=== PATIENT | female | born 1930 | race Two or more races ===

== ENCOUNTER 2016-10-26 16:15 | Inpatient (IN) | payer MEDICARE, BC ==
[~2016-10-26] VITALS: Ht 149.9 cm; Wt 51.8 kg
[~2016-10-26 16:15] MED LIST: ACET325T21 PO; ASPI-482 PO; ATOR10TA60 PO; BIMA2.5D EACHEYE; BRIM5DRO3 EACHEYE; CALC500T30 PO; CARV3.12 PO; CHOL200074 PO; LEVO88TA2 PO; LOSA100T6 PO; MAGN400O7 PO; OMEG1CAP27 PO; TIMO5DRO5 EACHEYE; TIZA4CAP3 PO
[2016-10-26 16:56] LABS: BASO % 0 % (0-3); EOS % 0 % (0-3); HEMATOCRIT 42.4 % (36.0-47.0); HEMOGLOBIN 13.7 g/dL (12.0-15.5); LYMPH # 1.5 x10^3/uL (1.0-4.8); LYMPH % 12 % (24-48); MEAN CORPUSCULAR HEMOGLOBIN 30 pg (25-35); MEAN CORPUSCULAR HGB CONC 32 g/dL (31-37); MEAN CORPUSCULAR VOLUME 94 fL (79-100); MONO % 7 % (0-9); NEUT % 81 % (31-73); PLATELET COUNT 315 x10^3/uL (140-400); RED BLOOD COUNT 4.52 x10^6/uL (3.50-5.40); RED CELL DISTRIBUTION WIDTH 14.2 % (11.5-14.5); WHITE BLOOD COUNT 11.8 x10^3/uL (4.0-11.0)
[2016-10-26 16:57] LABS: BILIRUBIN,URINE NEGATIVE (NEG); GLUCOSE,URINE NEGATIVE (NEG); NITRITE,URINE NEGATIVE (NEG); PROTEIN,URINE NEGATIVE (NEG-TRACE); UROBILINOGEN,URINE 0.2 mg/dL (0.2 mg/dL)
[2016-10-26 17:09] LABS: CALCIUM 9.8 mg/dL (8.5-10.1); GFR 52.8; POTASSIUM 4.3 mmol/L (3.5-5.1)
[2016-10-26 17:15] LABS: ALBUMIN 4.2 g/dL (3.4-5.0); ALBUMIN/GLOBULIN RATIO 1.1 (1.0-1.7); MAGNESIUM 2.6 mg/dL (1.8-2.4); TOTAL BILIRUBIN 0.5 mg/dL (0.2-1.0); TOTAL PROTEIN 8.2 g/dL (6.4-8.2)
[2016-10-26 17:17] LABS: INR 1.1 (0.8-1.1); PROTHROMBIN TIME PATIENT 13.9 SEC (11.7-14.0)
[2016-10-26 17:23] LABS: BACTERIA,URINE 0 /HPF (0-FEW); SQUAMOUS EPITHELIAL CELL,UR FEW /LPF; WBC,URINE 0 /HPF (0-4)
--- NOTE | 2016-10-26 17:40 | RAD ---
CT head without intravenous contrast History: Dizziness, facial numbness. Hypertension. Comparison: None. Technique: Axial images are obtained of the head from the skull base through the vertex without IV contrast. Exposure: One or more of the following individualized dose reduction techniques were utilized for this examination: 1. Automated exposure control 2. Adjustment of the mA and/or kV according to patient size 3. Use of iterative reconstruction technique Findings: The ventricles are appropriate in size, shape, and location for the patient's age. No obvious intracranial mass, mass-effect, midline shift, hemorrhage or obvious acute infarction is identified. Basilar cisterns are patent. Bone windows demonstrate no acute calvarial abnormality. The visualized paranasal sinuses appear clear. Radiodensity is seen involving the lateral aspect of both globes, may relate to previous surgery. Impression: No acute intracranial process. Please note that CT can be relatively insensitive to acute ischemic infarction for up to 24 hours after symptom onset. Electronically signed by: Cheko France MD (10/26/2016 5:37 PM)
--- NOTE | 2016-10-26 18:44 | EKG ---
[facility] [address] [place] [address] Test Date: 2016-10-26 Test Time: 16:37:19 Pat Name: GAY FISCHER Department: Room: Gender: F Clear Coat Sprayer: : [id number] Requested By: CYNTHIA HUERTA Order Number: [id number] Reading MD: Measurements Intervals [place] Rate: 76 P: 54 FL: 152 QRS: 9 QRSD: 92 T: 48 QT: 332 QTc: 377 Interpretive Statements SINUS RHYTHM OTHERWISE NORMAL ECG RI6.01 Unconfirmed report No previous ECG available for comparison
[2016-10-26] MEDS ORDERED: ONDANSETRON PF 4 MG/2 ML VIAL. IV PRN ×2 (19:00→19:47)
[2016-10-26] MEDS ORDERED: ACETAMINOPHEN 325 MG TABLET. PO PRN (19:00)
[2016-10-26] MEDS ORDERED: MORPHINE SULFATE 2 MG/ML DISP.SYRIN. IV PRN (19:00)
[2016-10-26] MEDS ORDERED: hydrALAZINE 20 MG/ML VIAL. IVP PRN (19:00)
[2016-10-26 20:22] VITALS: BP 168/83
--- NOTE | 2016-10-26 20:35 | PHYS DOC ---
Past Medical History Past Medical History: Diabetes-Type II, Glaucoma, Hypertension Additional Past Medical Histor: GLAUCOMA Past Surgical History: Other Additional Past Surgical Histo: glaucoma Alcohol Use: None Drug Use: None Adult General Chief Complaint Chief Complaint: DIZZY/LIGHT HEADED HPI HPI Patient is a 86 year old female who presents with right sided facial numbness. She reports onset of symptoms at about 1000 this morning (6 hours prior to arrival) after waking up free of symptoms. She denies any headache, vision changes, slurred speech, extremity numbness/weakness. She denies chest pain or shortness of breath. She has no previous history of similar symptoms. She does have HTN & reports compliance with her home medications. She denies history of CAD or CVA. 2 weeks ago she had a right eye "drainage" procedure performed for glaucoma. Review of Systems Review of Systems Constitutional: Denies fever or chills Eyes: Denies change in visual acuity HENT: Denies nasal congestion or sore throat Respiratory: Denies cough or shortness of breath Cardiovascular: Denies chest pain or edema GI: Denies abdominal pain, nausea, vomiting, bloody stools or diarrhea : Denies dysuria or hematuria Musculoskeletal: Denies back pain or joint pain Integument: Denies rash or skin lesions Neurologic: Denies headache, focal weakness, reports facial numbness Allergies Allergies Allergies Coded Allergies Type Severity Reaction Last Updated Verified amlodipine Allergy Intermediate SWELLING 12/26/15 Yes carvedilol Allergy Intermediate SOA, DIZZINESS 12/26/15 Yes hydrochlorothiazide Allergy Intermediate DIZZINESS 12/26/15 Yes nitrofurantoin Allergy Intermediate ANXIETY 12/26/15 Yes Physical Exam Physical Exam Constitutional: Well developed, well nourished, no acute distress, non-toxic appearance. HENT: Normocephalic, atraumatic, bilateral external ears normal, oropharynx moist, nose normal. right sided face decreased sensation to light touch. Eyes: PERRLA, EOMI, conjunctiva normal, no discharge. Neck: supple, no stridor. no carotid bruit. Cardiovascular: RRR, no murmurs, no edema. Lungs & Thorax: LCTAB, no wheezing, no respiratory distress. Abdomen: soft, nontender, nondistended. Skin: Warm, dry, no erythema, no rash. Back: No tenderness. Extremities: No tenderness, no edema. Neurologic: Alert and oriented X 3, CN2-12 grossly intact with exception of right sided decreased sensation to light touch, symmetric strength/sensation to UE & LE, intact finger to nose & heel to benton, no palmar drift. NIH score is 1. Psychologic: Affect normal, judgement normal, mood normal. Current Patient Data Vital Signs Vital Signs Date Time Temp Pulse Resp B/P (MAP) Pulse Ox O2 Delivery O2 Flow Rate FiO2 10/26/16 18:18 68 12 161/87 (111) 98 Room Air 10/26/16 16:35 97.7 97.7 Lab Values Laboratory Tests Test 10/26/16 16:35 10/26/16 16:37 Glucose (Fingerstick) 157 mg/dL (70-99) H White Blood Count 11.8 x10^3/uL (4.0-11.0) H Red Blood Count 4.52 x10^6/uL (3.50-5.40) Hemoglobin 13.7 g/dL (12.0-15.5) Hematocrit 42.4 % (36.0-47.0) Mean Corpuscular Volume 94 fL (79-100) Mean Corpuscular Hemoglobin 30 pg (25-35) Mean Corpuscular Hemoglobin Concent 32 g/dL (31-37) Red Cell Distribution Width 14.2 % (11.5-14.5) Platelet Count 315 x10^3/uL (140-400) Neutrophils (%) (Auto) 81 % (31-73) H Lymphocytes (%) (Auto) 12 % (24-48) L Monocytes (%) (Auto) 7 % (0-9) Eosinophils (%) (Auto) 0 % (0-3) Basophils (%) (Auto) 0 % (0-3) Neutrophils # (Auto) 9.6 x10^3uL (1.8-7.7) H Lymphocytes # (Auto) 1.5 x10^3/uL (1.0-4.8) Monocytes # (Auto) 0.8 x10^3/uL (0.0-1.1) Eosinophils # (Auto) 0.0 x10^3/uL (0.0-0.7) Basophils # (Auto) 0.0 x10^3/uL (0.0-0.2) Prothrombin Time 13.9 SEC (11.7-14.0) Prothrombin Time INR 1.1 (0.8-1.1) PTT 31 SEC (24-38) Urine Collection Type Unknown Urine Color Yellow Urine Clarity Clear Urine pH 6.0 Urine Specific [place] <=1.005 Urine Protein Negative mg/dL (NEG-TRACE) Urine Glucose (UA) Negative mg/dL (NEG) Urine Ketones (Stick) Negative mg/dL (NEG) Urine Blood Trace (NEG) Urine Nitrite Negative (NEG) Urine Bilirubin Negative (NEG) Urine Urobilinogen Dipstick 0.2 mg/dL (0.2 mg/dL) Urine Leukocyte Esterase Negative (NEG) Urine RBC 1-2 /HPF (0-2) Urine WBC 0 /HPF (0-4) Urine Squamous Epithelial Cells Few /LPF Urine Bacteria 0 /HPF (0-FEW) Sodium Level 133 mmol/L (136-145) L Potassium Level 4.3 mmol/L (3.5-5.1) Chloride Level 96 mmol/L (98-107) L Carbon Dioxide Level 27 mmol/L (21-32) Anion Gap 10 (6-14) Blood Urea Nitrogen 26 mg/dL (7-20) H Creatinine 1.0 mg/dL (0.6-1.0) Estimated GFR (Cockcroft-Gault) 52.8 BUN/Creatinine Ratio 26 (6-20) H Glucose Level 149 mg/dL (70-99) H Calcium Level 9.8 mg/dL (8.5-10.1) Magnesium Level 2.6 mg/dL (1.8-2.4) H Total Bilirubin 0.5 mg/dL (0.2-1.0) Aspartate Amino Transferase (AST) 20 U/L (15-37) Alanine Aminotransferase (ALT) 25 U/L (14-59) Alkaline Phosphatase 91 U/L (46-116) Troponin I Quantitative < 0.017 ng/mL (0.000-0.055) SH-Bfx-J-Type Natriuretic Peptide 49 pg/mL (0-449) Total Protein 8.2 g/dL (6.4-8.2) Albumin 4.2 g/dL (3.4-5.0) Albumin/Globulin Ratio 1.1 (1.0-1.7) Laboratory Tests 10/26/16 16:37 Laboratory Tests 10/26/16 16:37 EKG EKG interpreted by me: NSR rate 76, no acute ST/T wave changes, normal intervals, no ectopy.[] Radiology/Procedures Radiology/Procedures PROCEDURE: CT HEAD WO CONTRAST CT head without intravenous contrast History: Dizziness, facial numbness. Hypertension. Comparison: None. Technique: Axial images are obtained of the head from the skull base through the vertex without IV contrast. Exposure: One or more of the following individualized dose reduction techniques were utilized for this examination: 1. Automated exposure control 2. Adjustment of the mA and/or kV according to patient size 3. Use of iterative reconstruction technique Findings: The ventricles are appropriate in size, shape, and location for the patient's age. No obvious intracranial mass, mass-effect, midline shift, hemorrhage or obvious acute infarction is identified. Basilar cisterns are patent. Bone windows demonstrate no acute calvarial abnormality. The visualized paranasal sinuses appear clear. Radiodensity is seen involving the lateral aspect of both globes, may relate to previous surgery. Impression: No acute intracranial process. Please note that CT can be relatively insensitive to acute ischemic infarction for up to 24 hours after symptom onset. Electronically signed by: Anastacio Olivas MD (10/26/2016 5:37 PM) DICTATED and SIGNED BY: ANASTACIO OLIVAS MD DATE: 10/26/161733 CXR: interpreted by me: no cardiomegaly, no infiltrate, no pneumothorax.[] Course & Med Decision Making Course & Med Decision Making Pertinent Labs and Imaging studies reviewed. (See chart for details) The patient presents with neuro symptoms. Blood pressure markedly elevated upon arrival SBP > 200. NIH is 1. Onset of symptoms was 6 hours prior to arrival, not a candidate for TPA so therefore not activated as code stroke. Obtained CT of head as well as labs. She has unremarkable head CT, labs. She wonders whether her symptoms could be due to eye procedure; hard to know without having details of the procedure, though delay in onset makes me question whether this is likely. With elevated blood pressure I do think she could benefit from further neuro exam. She agrees with plan for admission. Gave aspirin. Discussed with Dr. Vick who agrees to admit to inpatient status. Neurology consult to Dr. Shah. The patient is admitted in stable condition. [] Dragon Disclaimer Dragon Disclaimer This electronic medical record was generated, in whole or in part, using a voice recognition dictation system. Departure Departure Impression: Primary Impression: Neurological symptoms Additional Impression: Accelerated hypertension Disposition: 09 ADMITTED INPATIENT Admitting Physician: Candi Vick Condition: STABLE Problem Qualifiers CYNTHIA HUERTA MD Oct 26, 2016 20:35
[2016-10-26] MEDS ORDERED: DEXTROSE 50% 25 GM / 50ML DISP.SYRIN. IV PRN (20:45)
--- NOTE | 2016-10-26 20:49 | PDOC1 ---
History and Physical Date of Admission Date of Admission DATE: 10/26/16 TIME: 20:44 Identification/Chief Complaint Chief Complaint R sided facial numbness Problems: Source Source: Caregiver, Chart review, Patient History of Present Illness History of Present Illness Very pleasant 86 y.o female who looks younger than stated age, lives at home with , ambulates with no assitive device, comes in bec of acute onset R sided facial numbness at home, coupled by high BP that she took at home systolic > 200, 2 rdgs at home. Admitted bec BP high and to have mri, No hx stroke, takes ASA 81 at home, compliant with meds,. LAbs ok CT head I have reviewed, neg. Systolic came down to 160 with nonintervention at ER. She did have recent eye sx for glaucoma - unsure if her R sided numbness has anything to do with that (doubt it), she had similar eye sx left side with no similar problems R side numbness is almost gone, just a residual "funny sensation" she claims Past Medical History Cardiovascular: HTN, Hyperlipidemia Pulmonary: No pertinent hx CENTRAL NERVOUS SYSTEM: Other GI: GERD Heme/Onc: No pertinent hx Hepatobiliary: No pertinent hx Psych: No pertinent hx Musculoskeletal: Osteoarthritis Rheumatologic: No pertinent hx Infectious disease: No pertinent hx Renal/: No pertinent hx Endocrine: Diabetes Past Surgical History Past Surgical History: Cataract Removal, Other Family History Family History: Coronary Artery Disease Social History Smoke: No ALCOHOL: none Drugs: None Current Problem List Problem List Problems Medical Problems: (1) Neurological symptoms Status: Acute Problems: Current Medications Current Medications Current Medications Ondansetron HCl (Zofran) 4 mg PRN Q8HRS PRN IV NAUSEA/VOMITING; Start 10/26/16 at 19:00; Stop 10/26/16 at 19:49; Status DC Morphine Sulfate 2 mg PRN Q2HR PRN IV PAIN; Start 10/26/16 at 19:00; Stop 10/27 at 18:59 Acetaminophen (Tylenol) 650 mg PRN Q4HRS PRN PO FEVER; Start 10/26/16 at 19:00 ; Stop 10/27/16 at 18:59 Hydralazine HCl (Apresoline) 10 mg PRN Q4HRS PRN IVP ELEVATED BP, SEE COMMENTS ; Start 10/26/16 at 19:00 Ondansetron HCl (Zofran) 4 mg PRN Q6HRS PRN IV NAUSEA/VOMITING; Start 10/26/16 at 19:47; Stop 10/27/16 at 19:46 Acetaminophen (Tylenol) 325 mg TID PO ; Start 10/26/16 at 21:00 Aspirin (Ecotrin) 81 mg DAILY PO ; Start 10/27/16 at 09:00 Atorvastatin Calcium (Lipitor) 10 mg QHS PO ; Start 10/27/16 at 21:00 Calcium Carbonate/ Glycine (Oscal) 500 mg DAILY PO ; Start 10/27/16 at 09:00 Carvedilol (Coreg) 3.125 mg BIDWMEALS PO ; Start 10/27/16 at 08:00 Levothyroxine Sodium (Synthroid) 88 mcg DAILY07 PO ; Start 10/27/16 at 07:00 Timolol Maleate (Timoptic 0.5% Ophth) 1 drop DAILYWBKFT OU ; Start 10/27/16 at 08:00 Latanoprost (Xalatan) 1 drop QHS OU ; Start 10/26/16 at 21:00 Brimonidine Tartrate (Alphagan) 1 drop DAILY OU ; Start 10/27/16 at 09:00 Losartan Potassium (Cozaar) 100 mg DAILY PO ; Start 10/27/16 at 09:00 Tizanidine HCl (Zanaflex) 2 mg QHS PO ; Start 10/26/16 at 21:00 Fish Oil (Fish Oil) 1,000 mg DAILY PO ; Start 10/27/16 at 09:00 Active Scripts Active Reported Coreg (Carvedilol) 3.125 Mg Tablet 1 Tab PO DAILY Timolol Maleate 10 Ml Drops 1 Drop EACHEYE DAILYWBKFT Alphagan P (Brimonidine Tartrate) 5 Ml Drops 1 Drop EACHEYE DAILY08 Lumigan (Bimatoprost) 2.5 Ml Drops 1 Drop EACHEYE QHS Zanaflex (Tizanidine Hcl) 4 Mg Capsule 0.5 Tab PO QHS Milk Of Magnesia (Magnesium Hydroxide) 400 Mg/5 Ml Oral.susp Unknown Dose PO Acetaminophen 325 Mg Tablet 325 Mg PO Vitamin D-3 (Cholecalciferol (Vitamin D3)) 2,000 Unit Capsule 2,000 Unit PO Calcium (Calcium Carbonate) 500 Mg Tablet 500 Mg PO Fish Oil 1,000 Mg Softgel ([place]-3 Fatty Acids/Fish Oil) 1 Each Capsule 3 Each PO Aspir 81 (Aspirin) 81 Mg Tablet.dr 81 Tab PO DAILY Synthroid (Levothyroxine Sodium) 88 Mcg Tablet 88 Tab PO DAILY Losartan Potassium 100 Mg Tablet 100 Mg PO DAILY Atorvastatin Calcium 10 Mg Tablet 1 Tab PO DAILY Allergies Allergies: Coded Allergies: amlodipine (Verified Allergy, Intermediate, SWELLING, 12/26/15) carvedilol (Verified Allergy, Intermediate, SOA, DIZZINESS, 12/26/15) PT WAS PLACED BACK ONTO MEDICATION BY PCP, PT NO LONGER HAVING THOSE SYMPTOMS WITH MEDICATION hydrochlorothiazide (Verified Allergy, Intermediate, DIZZINESS, 12/26/15) nitrofurantoin (Verified Allergy, Intermediate, ANXIETY, 12/26/15) ROS General: No: Chills, Night Sweats, Fatigue, Malaise, Appetite, Other PSYCHOLOGICAL ROS: No: Anxiety, Behavioral Disorder, Concentration difficultie , Decreased libido, Depression, Disorientation, Hallucinations, Hostility, Irritablity, Memory difficulties, Mood Swings, Obsessive thoughts, Physical abuse, Sexual abuse, Sleep disturbances, Suicidal ideation, Other Eyes: No Blurry vision, No Decreased vision, No Double vision, No Dry eyes, No Excessive tearing, No Eye Pain, No Itchy Eyes, No Loss of vision, No Photophobia , No Scotomata, No Uses contacts, No Uses glasses, No Other HEENT: No: Heacaches, Visual Changes, Hearing change, Nasal congestion, Nasal discharge, Oral lesions, Sinus pain, Sore Throat, Epistaxis, Sneezing, Snoring, Tinnitus, Vertigo, Vocal changes, Other ALLERGY AND IMMUNOLOGY: No: Hives, Insect Bite Sensitivity, Itchy/Watery Eyes, Nasal Congestion, Post Nasal Drip, Seasonal Allergies, Other Hematological and Lymphatic: No: Bleeding Problems, Blood Clots, Blood Transfusions, Brusing, Night Sweats, Pallor, Swollen Lymph Nodes, Other ENDOCRINE: No: Breast Changes, Galactorrhea, Hair Pattern Changes, Hot Flashes , Malaise/lethargy, Mood Swings, Palpitations, Polydipsia/polyuria, Skin Changes , Temperature Intolerance, Unexpected Weight Changes, Other Breast: No New/Changing Breast Lumps, No Nipple changes, No Nipple discharge, No Other Respiratory: No: Cough, Hemoptysis, Orthopnea, Pleuritic Pain, Shortness of breath, SOB with excertion, Sputum Changes, Stridor, Tachypnea, Wheezing, Other Cardiovascular: No Chest Pain, No Palpitations, No Orthopnea, No Paroxysmal Noc. Dyspnea, No Edema, No Lt Headedness, No Other Gastrointestinal: No Nausea, No Vomiting, No Abdominal Pain, No Diarrhea, No Constipation, No Melena, No Hematochezia, No Other Genitourinary: No Dysuria, No Frequency, No Incontinence, No Hematuria, No Retention, No Discharge, No Urgency, No Pain, No Flank Pain, No Other, No , No , No , No , No , No , No Musculoskeletal: No Gait Disturbance, No Joint Pain, No Joint Stiffness, No Joint Swelling, No Muscle Pain, No Muscular Weakness, No Pain In:, No Swelling In:, No Other Neurological: Yes Other (as per HPI,) Physical Exam General: Alert, Oriented X3, Cooperative, No acute distress HEENT: Atraumatic, PERRLA, EOMI Lungs: Clear to auscultation, Normal air movement Cardiovascular: S1, S2 Breasts: Normal, Rt breast nml w/o mass, Lt breast nml w/o mass, Nipples normal Abdomen: Normal bowel sounds, Soft, No tenderness, No hepatosplenomegaly, No masses Male Genitals Exam: normal genitalia, normal prostate Rectal Exam: not examined PELVIC: Nml ext genitalia Extremities: No clubbing, No cyanosis, No edema, Normal pulses, No tenderness/ swelling Skin: No rashes, No breakdown, No significant lesion Neuro: Normal gait, Normal speech, Strength at 5/5 X4 ext, Normal tone, Sensation intact, Cranial nerves 3-12 NL, Reflexes 2+ Psych/Mental Status: Mental status NL, Mood NL Vitals Vitals Vital Signs Date Time Temp Pulse Resp B/P (MAP) Pulse Ox O2 Delivery O2 Flow Rate FiO2 10/26/16 20:22 97.4 76 18 168/83 (111) 99 Room Air 97.4 Labs Labs Laboratory Tests Test 10/26/16 16:35 10/26/16 16:37 10/26/16 20:16 Glucose (Fingerstick) 157 mg/dL (70-99) 151 mg/dL (70-99) White Blood Count 11.8 x10^3/uL (4.0-11.0) Red Blood Count 4.52 x10^6/uL (3.50-5.40) Hemoglobin 13.7 g/dL (12.0-15.5) Hematocrit 42.4 % (36.0-47.0) Mean Corpuscular Volume 94 fL (79-100) Mean Corpuscular Hemoglobin 30 pg (25-35) Mean Corpuscular Hemoglobin Concent 32 g/dL (31-37) Red Cell Distribution Width 14.2 % (11.5-14.5) Platelet Count 315 x10^3/uL (140-400) Neutrophils (%) (Auto) 81 % (31-73) Lymphocytes (%) (Auto) 12 % (24-48) Monocytes (%) (Auto) 7 % (0-9) Eosinophils (%) (Auto) 0 % (0-3) Basophils (%) (Auto) 0 % (0-3) Neutrophils # (Auto) 9.6 x10^3uL (1.8-7.7) Lymphocytes # (Auto) 1.5 x10^3/uL (1.0-4.8) Monocytes # (Auto) 0.8 x10^3/uL (0.0-1.1) Eosinophils # (Auto) 0.0 x10^3/uL (0.0-0.7) Basophils # (Auto) 0.0 x10^3/uL (0.0-0.2) Prothrombin Time 13.9 SEC (11.7-14.0) Prothromb Time International Ratio 1.1 (0.8-1.1) Activated Partial Thromboplast Time 31 SEC (24-38) Urine Collection Type Unknown Urine Color Yellow Urine Clarity Clear Urine pH 6.0 Urine Specific [place] <=1.005 Urine Protein Negative mg/dL (NEG-TRACE) Urine Glucose (UA) Negative mg/dL (NEG) Urine Ketones (Stick) Negative mg/dL (NEG) Urine Blood Trace (NEG) Urine Nitrite Negative (NEG) Urine Bilirubin Negative (NEG) Urine Urobilinogen Dipstick 0.2 mg/dL (0.2 mg/dL) Urine Leukocyte Esterase Negative (NEG) Urine RBC 1-2 /HPF (0-2) Urine WBC 0 /HPF (0-4) Urine Squamous Epithelial Cells Few /LPF Urine Bacteria 0 /HPF (0-FEW) Sodium Level 133 mmol/L (136-145) Potassium Level 4.3 mmol/L (3.5-5.1) Chloride Level 96 mmol/L (98-107) Carbon Dioxide Level 27 mmol/L (21-32) Anion Gap 10 (6-14) Blood Urea Nitrogen 26 mg/dL (7-20) Creatinine 1.0 mg/dL (0.6-1.0) Estimated GFR (Cockcroft-Gault) 52.8 BUN/Creatinine Ratio 26 (6-20) Glucose Level 149 mg/dL (70-99) Calcium Level 9.8 mg/dL (8.5-10.1) Magnesium Level 2.6 mg/dL (1.8-2.4) Total Bilirubin 0.5 mg/dL (0.2-1.0) Aspartate Amino Transf (AST/SGOT) 20 U/L (15-37) Alanine Aminotransferase (ALT/SGPT) 25 U/L (14-59) Alkaline Phosphatase 91 U/L (46-116) Troponin I Quantitative < 0.017 ng/mL (0.000-0.055) MM-[id number]-A-Type Natriuretic Peptide 49 pg/mL (0-449) Total Protein 8.2 g/dL (6.4-8.2) Albumin 4.2 g/dL (3.4-5.0) Albumin/Globulin Ratio 1.1 (1.0-1.7) Laboratory Tests Test 10/26/16 16:35 10/26/16 16:37 10/26/16 20:16 Glucose (Fingerstick) 157 mg/dL (70-99) 151 mg/dL (70-99) White Blood Count 11.8 x10^3/uL (4.0-11.0) Red Blood Count 4.52 x10^6/uL (3.50-5.40) Hemoglobin 13.7 g/dL (12.0-15.5) Hematocrit 42.4 % (36.0-47.0) Mean Corpuscular Volume 94 fL (79-100) Mean Corpuscular Hemoglobin 30 pg (25-35) Mean Corpuscular Hemoglobin Concent 32 g/dL (31-37) Red Cell Distribution Width 14.2 % (11.5-14.5) Platelet Count 315 x10^3/uL (140-400) Neutrophils (%) (Auto) 81 % (31-73) Lymphocytes (%) (Auto) 12 % (24-48) Monocytes (%) (Auto) 7 % (0-9) Eosinophils (%) (Auto) 0 % (0-3) Basophils (%) (Auto) 0 % (0-3) Neutrophils # (Auto) 9.6 x10^3uL (1.8-7.7) Lymphocytes # (Auto) 1.5 x10^3/uL (1.0-4.8) Monocytes # (Auto) 0.8 x10^3/uL (0.0-1.1) Eosinophils # (Auto) 0.0 x10^3/uL (0.0-0.7) Basophils # (Auto) 0.0 x10^3/uL (0.0-0.2) Prothrombin Time 13.9 SEC (11.7-14.0) Prothromb Time International Ratio 1.1 (0.8-1.1) Activated Partial Thromboplast Time 31 SEC (24-38) Urine Collection Type Unknown Urine Color Yellow Urine Clarity Clear Urine pH 6.0 Urine Specific [place] <=1.005 Urine Protein Negative mg/dL (NEG-TRACE) Urine Glucose (UA) Negative mg/dL (NEG) Urine Ketones (Stick) Negative mg/dL (NEG) Urine Blood Trace (NEG) Urine Nitrite Negative (NEG) Urine Bilirubin Negative (NEG) Urine Urobilinogen Dipstick 0.2 mg/dL (0.2 mg/dL) Urine Leukocyte Esterase Negative (NEG) Urine RBC 1-2 /HPF (0-2) Urine WBC 0 /HPF (0-4) Urine Squamous Epithelial Cells Few /LPF Urine Bacteria 0 /HPF (0-FEW) Sodium Level 133 mmol/L (136-145) Potassium Level 4.3 mmol/L (3.5-5.1) Chloride Level 96 mmol/L (98-107) Carbon Dioxide Level 27 mmol/L (21-32) Anion Gap 10 (6-14) Blood Urea Nitrogen 26 mg/dL (7-20) Creatinine 1.0 mg/dL (0.6-1.0) Estimated GFR (Cockcroft-Gault) 52.8 BUN/Creatinine Ratio 26 (6-20) Glucose Level 149 mg/dL (70-99) Calcium Level 9.8 mg/dL (8.5-10.1) Magnesium Level 2.6 mg/dL (1.8-2.4) Total Bilirubin 0.5 mg/dL (0.2-1.0) Aspartate Amino Transf (AST/SGOT) 20 U/L (15-37) Alanine Aminotransferase (ALT/SGPT) 25 U/L (14-59) Alkaline Phosphatase 91 U/L (46-116) Troponin I Quantitative < 0.017 ng/mL (0.000-0.055) [id number]-M-Type Natriuretic Peptide 49 pg/mL (0-449) Total Protein 8.2 g/dL (6.4-8.2) Albumin 4.2 g/dL (3.4-5.0) Albumin/Globulin Ratio 1.1 (1.0-1.7) VTE Prophylaxis Ordered VTE Prophylaxis Devices: Yes VTE Pharmacological Prophylaxi: Yes Assessment/Plan Assessment/Plan 1. Right sided facial numbness 2. MAlignant HTN POA 3. Dyslipidemia, GERD, OA - all chronic stable 4. REcent eye sx for glaucoma 5. Dm2, controlled PLan: Admit 2 [place] Close neuro checks CT head is neg - get MRI w/ contrast Inc ASA to 325 PO qD PT/OT Ok to resume eye drops and other home meds Seen at 674 Prn labetolol/hydralazine ADA diet with SSI Dw MANASA perdomo and pt MARY CANTU MD Oct 26, 2016 20:49
[2016-10-26] MEDS ORDERED: tiZANidine 4 MG TABLET. PO SCH (21:00)
[2016-10-26] MEDS ORDERED: LATANOPROST 0.005% OPHTH SOLUTION 2.5ML BOTTLE. OU SCH (21:00)
[2016-10-26] MEDS: ACETAMINOPHEN 325 MG TABLET. PO SCH (22:24)
[2016-10-26 22:30] VITALS: BP 130/77
--- NOTE | 2016-10-27 01:44 | ACF ---
Admission Forms Criteria NEUROLOGY GRG Clinical Indications for Admission to Inpatient Care (Place ' X' for any and all applicable criteria): Hospital admission is needed for appropriate care of the patient because of 1 or more of the following: [ ]I. Encephalitis [ ]II. Severe [employer] infections indicated by 1 or more of the following(1)(2)(3) : [ ]a) Intracranial abscess [ ]b) Spinal abscess or myelitis [ ]c) Tuberculous or other nonbacterial, nonviral [employer]FORMATION [employer] PRO[employer]GER infection(8) [ ]III. Vasculitis and 1 or more of the following(14)(15): []a) Altered mental status that is severe or persistent or other acute neurologic change []b) Psychosis []c) Seizure [ ]IV. Status epilepticus or repetitive seizures not controlled with emergent treatment [A] (7)(8) [ ]V. Altered mental status that is severe or persistent [ ]. Transient alteration in consciousness with high-risk etiology; examples include (12)(13): [ ]a) Cardiovascular source [ ]b) Cataplexy [ ]VII. Cerebral aneurysm requiring ANY ONE of the following(14): [ ]a) IV antihypertensives or vasoactive agents [ ]b) Sedation and analgesia for suspected leak [ ]c) Need for external ventricular drainage and cerebral perfusion pressure monitoring [ ]d) Emergent evaluation to determine need for surgical clipping or endovascular coiling by interventional radiology. If surgery is required ( Also use Craniotomy, Supratentorial, for Surgery of Bleeding Intracranial Aneurysm (for bleeding aneurysm) or Craniotomy, Supratentorial (for nonbleeding aneurysm) as appropriate. [ ]VIII. New-onset severe neurologic symptom requiring inpatient care indicated by ANY ONE of the following: [ ]a) Aphasia(15) [ ]b) Weakness (grade 3 or less) [ ]c) Paralysis (eg, hemiplegia) [ ]d) Spasticity(16) [ ]e) Dystonia [ ]e) Ataxia(17) [ ]f) Amnesia(18) [ ]g) Involuntary movements(19) [ ]h) Vertigo [ ] Visual loss [ ]i) Other severe neurologic finding (eg, papilledema, mass effect on imaging, myoclonus not treatable at alternative level of care (eg, observation care) [ ]IX. Guillain-[place] syndrome(20) [ ]X. Myasthenia gravis crisis or inpatient monitoring need as indicated by 1 or more of the following(21): [ ]a) Intensive treatment (eg, course of plasmapheresis) with inadequate outpatient situation to monitor patients status [ ]b) Inadequate airway protection [ ]c) Respiratory insufficiency requiring intubation or inpatient. monitoring [ ]d) Progressive dysphagia with failure to thrive [ ]XI. Multiple sclerosis or other acute demyelinating disease requiring inpatient care as indicated by 1 or more of the following (22)(23): [ ]a) Acute severe deterioration requiring inpatient treatment (eg, IV steroids, plasmapheresis, close observation) [ ]b) Acute complication requiring inpatient care (eg, sepsis, severe decubitus, aspiration) [ ]XII.Parkinson disease requiring inpatient care (Also use Optimal Recovery Care Criteria or General Recovery Criteria as appropriate) indicated by 1 or more of the following(25): [ ]a) Infection (eg, aspiration pneumonia) not treatable at alternative level of care [ ]b Dehydration that is severe or persistent [ ]c) Life-threatening agitation or psychotic behavior not treatable on emergency, observation care, or alternative level (eg, residential) basis [ ]d) Severe medication withdrawal effects (eg, freezing, neuroleptic malignant syndrome) not responsive to emergency and observation care treatment ( as appropriate) [ ]e) Other severe manifestation not treatable at alternative level of care [ ]XII. Amyotrophic lateral sclerosis with inpatient care needs as indicated by ANY ONE of the following(26): [ ]a) Acute complications (eg, aspiration pneumonia, sepsis ) requiring inpatient care ( see other optimal Recovery Guideline as appropriate) [ ]b) Dehydration that is severe persistent AND artificial support desired [ ]c) Inadequate airway protection AND artificial support desired [ ]d) Severe ventilatory insufficiency AND artificial support desired [ ]XIII. Myasthenia gravis crisis or inpatient monitoring need as indicated by 1 or more of the following(21): [] a) Inadequate airway protection []b) Respiratory insufficiency requiring intubation or inpatient monitoring []c) Progressive dysphagia with failure to thrive []d) Intensive treatment (e.g., course of plasmapheresis) with inadequate outpatient situation to monitor patients status [ ]XIV. Multiple sclerosis or other acute demyelinating disease requiring inpatient care indicated by 1 or more of the following[C](36)(43)(44)(45)(46): []a) Acute severe deterioration requiring inpatient treatment (eg, IV steroids, plasmapheresis, close observation) []b) Acute complication requiring inpatient care (eg, sepsis, severe decubitus, aspiration) [ ]XV. Intracranial hypertension (e.g., pseudotumor cerebri) requiring inpatient care (e.g., acute visual loss, inadequate oral intake) (47)(48)(49) [ ]XVI. Parkinson disease requiring inpatient care (Also use Optimal Recovery Care Criteria or General Recovery Criteria as appropriate) indicated by 1 or more of the following(25): [] a) Infection (e.g., aspiration pneumonia) not treatable at alternative level of care []b) Volume depletion not responsive to emergency and observation care treatment (as appropriate) []c) Life-threatening agitation or psychotic behavior not treatable on emergency, observation care, or alternative level (e.g., residential) basis []d) Severe medication withdrawal effects (e.g., freezing, neuroleptic malignant syndrome) not responsive to emergency and observation care treatment (as appropriate) []e) Other severe manifestation not treatable at alternative level of care [ ]XVII. Amyotrophic lateral sclerosis with inpatient care needs as indicated by1 or more of the following(42): []a) Acute complications (eg, aspiration pneumonia, sepsis) requiring inpatient care (see other Optimal Recovery Guideline or General Recovery Guideline as appropriate) []b) Dehydration that is severe or persistent AND artificial support desired []c) Inadequate airway protection AND artificial support desired []d) Severe ventilatory insufficiency AND artificial support desired [ ]XVIII. Severe myopathy, neuropathy, or other neuromuscular disease indicated by 1 or more of the following(42)(52)(53)(54): []a ) New-onset severe diffuse weakness (eg, strength 3/5 or less) []b) Severe dysphagia []c) Dyspnea at rest or with minimal exertion (new) []d) Inadequate airway protection []e) Inadequate ventilation indicated by 1 or more of the following : i) Partial pressure of carbon dioxide greater than 44 mm Hg ( 5.9 kPa) (new) ii) Reduced peak expiratory flow rate (new) iii) Vital capacity less than 50% of predicted (less than 15 mL/kg) iv) Peak inspiratory force less negative than -30 cm H2O (- 2942 Pa) [ ]XVII.Complications of congenital or degenerative disease (eg, infection, seizures, dehydration, injury) not responsive to emergency and observation care treatment (as appropriate ) [C](16)(29)(30) [ ]XVIII.Suspected or confirmed nerve or muscle toxic injury, including ANY ONE of the following: [ ]a) Rhabdomyolysis(31) i) Acute renal failure ii) Dehydration that is severe or persistent iii) Altered mental status that is severe or persistent iv) Electrolyte abnormality that remains after emergency or observation level care ( as appropriate) [ ]b) Botulism(32) [ ]c) Other severe toxin-induced sign or symptom [ ]XIX. Neurologic trauma requiring inpatient treatment (medical) indicated by ANY ONE of the following(33)(34): [ ]a) Vital signs or neurologic signs more frequently than every 4 hours [ ]b) Hyperosmolar therapy [ ]c) Respiratory monitoring [ ]d) Intracranial pressure monitoring and treatment [ ]e) Stabilization and immobilization device placement (eg, braces, body jacket) [ ]f) Intubation & mechanical ventilation for airway protection or therapeutic hyperventilation [ ]g) Other treatment or monitoring needed that requires inpatient level of care [ ]XX.Complications of neurologic devices (eg, ventricular shunt, neurostimulator) requiring 1 or more of the following(35)(36): [ ]a) IV antibiotics with monitoring while awaiting culture results [ ]b) Monitoring for hydrocephalus [X]XXI. Neurology condition symptom, or finding for which emergency and observation care have failed or are not considered appropriate. See General Criteria: Observation Care ISC, General Admission Criteria GRG, or Pediatric General Admission Criteria GRG guideline as appropriate. The original [facility] content created by [facility] has been revised. The portions of the content which have been revised are identified through the use of italic text or in bold, and [facility] has neither reviewed nor approved the modified material. All other unmodified content is copyright [facility] Please see references footnoted in the original [facility] edition 2016 Admission Criteria Met?: Yes GRANT ORDOÑEZ Oct 27, 2016 01:44
[2016-10-27 05:58] LABS: BASO % 0 % (0-3); EOS % 0 % (0-3); HEMATOCRIT 40.5 % (36.0-47.0); HEMOGLOBIN 13.2 g/dL (12.0-15.5); LYMPH # 1.2 x10^3/uL (1.0-4.8); LYMPH % 13 % (24-48); MEAN CORPUSCULAR HEMOGLOBIN 31 pg (25-35); MEAN CORPUSCULAR HGB CONC 33 g/dL (31-37); MEAN CORPUSCULAR VOLUME 94 fL (79-100); MONO % 9 % (0-9); NEUT % 78 % (31-73); PLATELET COUNT 255 x10^3/uL (140-400); RED BLOOD COUNT 4.29 x10^6/uL (3.50-5.40); RED CELL DISTRIBUTION WIDTH 14.2 % (11.5-14.5); WHITE BLOOD COUNT 9.3 x10^3/uL (4.0-11.0)
[2016-10-27 06:08] LABS: CALCIUM 9.6 mg/dL (8.5-10.1); CREATININE 1.1 mg/dL (0.6-1.0); GFR 47.3; POTASSIUM 4.9 mmol/L (3.5-5.1)
[2016-10-27] MEDS ORDERED: LEVOTHYROXINE 88 MCG TABLET PO SCH (07:00)
[2016-10-27 07:10] VITALS: BP 154/73
[2016-10-27] MEDS ORDERED: ASPIRIN ENTERIC COATED 325 MG TABLET.DR. PO SCH (08:00)
[2016-10-27] MEDS ORDERED: TIMOLOL 0.5% OPHTH SOLUTION 5ML BOTTLE. OU SCH (08:00)
[2016-10-27] MEDS ORDERED: CARVEDILOL 3.125 MG TABLET. PO SCH (08:00)
--- NOTE | 2016-10-27 08:23 | RAD ---
AP PORTABLE CHEST Clinical Indication: stroke symptoms. Right facial problems. Hypertension and diabetes. Comparison: None. Findings: Atherosclerotic aortic arch. The cardiomediastinal silhouette is normal. Calcified granuloma right lung base. Lungs are clear. There is no pneumothorax. No pleural effusion is appreciated. There is no acute bone abnormality. IMPRESSION: No acute cardiopulmonary process.
[2016-10-27] MEDS ORDERED: LOSARTAN POTASSIUM 50 MG TABLET. PO SCH (09:00)
[2016-10-27] MEDS ORDERED: ASPIRIN ENTERIC COATED 81 MG TABLET.DR. PO SCH (09:00)
[2016-10-27] MEDS ORDERED: CALCIUM CARBONATE 500 MG TABLET PO SCH (09:00)
[2016-10-27] MEDS ORDERED: OMEGA-3 FATTY ACIDS/FISH OIL 1,000 MG CAPSULE. PO SCH (09:00)
[2016-10-27] MEDS: ACETAMINOPHEN 325 MG TABLET. PO SCH ×2 (09:00→13:50)
[2016-10-27] MEDS ORDERED: BRIMONIDINE 0.2% OPHTH SOLUTION 5ML BOTTLE. OU SCH (09:00)
[2016-10-27] MEDS: INSULIN ASPART 300 UNITS/3 ML INSULN.PEN SQ SCH ×2 (09:15→13:50)
[2016-10-27] MEDS ORDERED: DIFL5DRO2 RIGHTEYE (10:16)
[2016-10-27] MEDS ORDERED: ATRO10DR RIGHTEYE (10:16)
[2016-10-27] MEDS ORDERED: ATROPINE 1% OPHTH SOLUTION 5ML BOTTLE. OD SCH (10:30)
[2016-10-27 11:23] VITALS: BP 132/68
[2016-10-27] MEDS ORDERED: GADOBUTROL 7.5 MMOL/7.5 ML VIAL IV ONE (13:15)
--- NOTE | 2016-10-27 14:07 | PDOC2 ---
NEUROLOGY CONSULT Date of Admission Date of Admission DATE: 10/27/16 TIME: 13:59 Reason for Consult Reason for Consult: IMPRESSION: Right side facial numbness and pain. Hypertensive urgency DM HTN HLD RECOMMENDATIONS/PLAN: ASA 325 mg daily. Lipitor 10 mg HS. Brain MRI w/wo contrast with fine cuts at cerebellar-pontine triangle. BP control. Carotid A US + Doppler. Echo Lab: see orders. Treat medical diseases. Discussed with her at bedside. HISTORY OF THE PRESENT ILLNESS: 86-y-old AA female patient with above medical diseases developed symptoms of pain and numbness in her right side of the face since 10/26/16. She stated her symptoms started in the morning lasted to night and resolved the next day. Her UE and LE were not affected. PAST MEDICAL HISTORY: Please see above. PAST SURGERY HISTORY: No major surgery recently. ALLERGY: Reviewed. MEDICATIONS: Refer to [facility] FAMILY HISTORY: Non contributory. SOCIAL HISTORY: Lives at home. Denies smoking, drinking, and illicit drug use. REVIEW OF SYSTEMS: Constitutional: No malnutrition, weight loss, cachexia. Head: No traumatic brain or head injury. Skin: No edema, or rash. Ear: No infection. Eyes: No vision loss or color blindness. Nose: No bleeding or purulent discharges. Hearing: No hearing decrease. Neck: No injury. Breast: No history of cancer, masses,or discharges. Cardiac: HTN, HLD. Pulmonary: No pneumonia, COPD. GI: No GI ulcer, GI bleeding. Urinary/genital: UTI. Endocrinologic: Diabetes Mellitus. Skeletomuscular: No muscular atrophy, deformity. Neurological: see HP. Psychiatric: Denies drug use/abuse. Otherwise, not [id number] review of systems. PHYSICAL EXAMINATION: General appearance is in no acute distress. HEENT: Normocephalic and nontraumatic. Eyes, nose, ears, and throat are unremarkable. Neck is supple. No lymphadenopathy. No crepitus. Cardiovascular: S1, S2, regular rate and rhythm. Pulmonary: Clear to auscultation bilaterally. Abdomen: Bowel sounds are positive. Abdomen is soft, nontender, and nondistended. Extremities: No rash, lesions, or edema. No restriction of range of motion NEUROLOGICAL EXAMINATION: Awake. Oriented to time, place and person. PERRL. EOMI. CN: no focal findings. Muscle tone: within normal. Muscle strength: 5- DTR: 2 Plantar reflex: Flexor response bilaterally Gait: not examined in bed. Sensory exam: no abnormal findings. No cerebellar signs elicited. F-T-N test fine. Current Medications Current Medications Current Medications Ondansetron HCl (Zofran) 4 mg PRN Q8HRS PRN IV NAUSEA/VOMITING; Start 10/26/16 at 19:00; Stop 10/26/16 at 19:49; Status DC Morphine Sulfate 2 mg PRN Q2HR PRN IV PAIN; Start 10/26/16 at 19:00; Stop 10/27 at 18:59 Acetaminophen (Tylenol) 650 mg PRN Q4HRS PRN PO FEVER; Start 10/26/16 at 19:00 ; Stop 10/27/16 at 18:59 Hydralazine HCl (Apresoline) 10 mg PRN Q4HRS PRN IVP ELEVATED BP, SEE COMMENTS ; Start 10/26/16 at 19:00 Ondansetron HCl (Zofran) 4 mg PRN Q6HRS PRN IV NAUSEA/VOMITING; Start 10/26/16 at 19:47; Stop 10/27/16 at 19:46 Acetaminophen (Tylenol) 325 mg TID PO Last administered on 10/26/16 22:24; Start 10/26/16 at 21:00 Aspirin (Ecotrin) 81 mg DAILY PO ; Start 10/27/16 at 09:00; Stop 10/27/16 at 09: 00; Status DC Atorvastatin Calcium (Lipitor) 10 mg QHS PO ; Start 10/27/16 at 21:00 Calcium Carbonate/ Glycine (Oscal) 500 mg DAILY PO Last administered on 09:36; Start 10/27/16 at 09:00 Carvedilol (Coreg) 3.125 mg BIDWMEALS PO Last administered on 10/27/16 09:36; Start 10/27/16 at 08:00 Levothyroxine Sodium (Synthroid) 88 mcg DAILY07 PO Last administered on 06:53; Start 10/27/16 at 07:00 Timolol Maleate (Timoptic 0.5% Ophth) 1 drop DAILYWBKFT OU ; Start 10/27/16 at 08:00 Latanoprost (Xalatan) 1 drop QHS OU ; Start 10/26/16 at 21:00; Stop 10/27/16 at 10:22; Status DC Brimonidine Tartrate (Alphagan) 1 drop DAILY OU ; Start 10/27/16 at 09:00; Stop 10/27/16 at 10:22; Status DC Losartan Potassium (Cozaar) 100 mg DAILY PO ; Start 10/27/16 at 09:00; Stop at 10:22; Status DC Tizanidine HCl (Zanaflex) 2 mg QHS PO Last administered on 10/26/16 22:24; Start 10/26/16 at 21:00 Fish Oil (Fish Oil) 1,000 mg DAILY PO Last administered on 10/27/16 09:36; Start 10/27/16 at 09:00 Insulin Aspart (NovoLOG) 0-9 UNITS TIDWMEALS SQ Last administered on 10/27/16 09:15; Start 10/27/16 at 08:00 Dextrose (Dextrose 50%-Water Syringe) 12.5 gm PRN Q15MIN PRN IV SEE COMMENTS; Start 10/26/16 at 20:45 Aspirin (Ecotrin) 325 mg DAILYWBKFT PO Last administered on 10/27/16 09:36; Start 10/27/16 at 08:00 Atropine Sulfate (Isopto Atropine) 1 drop BID OD ; Start 10/27/16 at 10:30 Non-Formulary Medication 1 drop BID RIGHTEYE ; Start 10/27/16 at 21:00 Losartan Potassium (Cozaar) 100 mg DAILY16 PO ; Start 10/28/16 at 16:00 Gadobutrol (Gadavist) 5 mmol 1X ONCE IV Last administered on 10/27/16 13:22; Start 10/27/16 at 13:15; Stop 10/27/16 at 13:16; Status DC Active Scripts Active Reported Atropine 0.01%-Ns Eye Drops (Atropine Sulfate in 0.9% NaCl) 10 Ml Drops 1 Drop RIGHTEYE BID Durezol (Difluprednate) 5 Ml Drops 1 Drop RIGHTEYE QID Coreg (Carvedilol) 3.125 Mg Tablet 1 Tab PO DAILY Timolol Maleate 10 Ml Drops 1 Drop EACHEYE DAILYWBKFT Zanaflex (Tizanidine Hcl) 4 Mg Capsule 0.5 Tab PO QHS Milk Of Magnesia (Magnesium Hydroxide) 400 Mg/5 Ml Oral.susp Unknown Dose PO Acetaminophen 325 Mg Tablet 325 Mg PO Vitamin D-3 (Cholecalciferol (Vitamin D3)) 2,000 Unit Capsule 2,000 Unit PO Calcium (Calcium Carbonate) 500 Mg Tablet 500 Mg PO Fish Oil 1,000 Mg Softgel ([place]-3 Fatty Acids/Fish Oil) 1 Each Capsule 3 Each PO Aspir 81 (Aspirin) 81 Mg Tablet.dr 81 Tab PO DAILY Synthroid (Levothyroxine Sodium) 88 Mcg Tablet 88 Tab PO DAILY Losartan Potassium 100 Mg Tablet 100 Mg PO DAILY Atorvastatin Calcium 10 Mg Tablet 1 Tab PO DAILY Allergies Allergies: Coded Allergies: amlodipine (Verified Allergy, Intermediate, SWELLING, 12/26/15) carvedilol (Verified Allergy, Intermediate, SOA, DIZZINESS, 12/26/15) PT WAS PLACED BACK ONTO MEDICATION BY PCP, PT NO LONGER HAVING THOSE SYMPTOMS WITH MEDICATION hydrochlorothiazide (Verified Allergy, Intermediate, DIZZINESS, 12/26/15) nitrofurantoin (Verified Allergy, Intermediate, ANXIETY, 12/26/15) Vitals VITALS Vital Signs Date Time Temp Pulse Resp B/P (MAP) Pulse Ox O2 Delivery O2 Flow Rate FiO2 10/27/16 11:23 97.6 79 20 132/68 (89) 97 Room Air 97.6 Labs Labs Laboratory Tests Test 10/26/16 16:35 10/26/16 16:37 10/26/16 20:16 10/27/16 05:00 Glucose (Fingerstick) 157 mg/dL (70-99) 151 mg/dL (70-99) White Blood Count 11.8 x10^3/uL (4.0-11.0) 9.3 x10^3/uL (4.0-11.0) Red Blood Count 4.52 x10^6/uL (3.50-5.40) 4.29 x10^6/uL (3.50-5.40) Hemoglobin 13.7 g/dL (12.0-15.5) 13.2 g/dL (12.0-15.5) Hematocrit 42.4 % (36.0-47.0) 40.5 % (36.0-47.0) Mean Corpuscular Volume 94 fL (79-100) 94 fL (79-100) Mean Corpuscular Hemoglobin 30 pg (25-35) 31 pg (25-35) Mean Corpuscular Hemoglobin Concent 32 g/dL (31-37) 33 g/dL (31-37) Red Cell Distribution Width 14.2 % (11.5-14.5) 14.2 % (11.5-14.5) Platelet Count 315 x10^3/uL (140-400) 255 x10^3/uL (140-400) Neutrophils (%) (Auto) 81 % (31-73) 78 % (31-73) Lymphocytes (%) (Auto) 12 % (24-48) 13 % (24-48) Monocytes (%) (Auto) 7 % (0-9) 9 % (0-9) Eosinophils (%) (Auto) 0 % (0-3) 0 % (0-3) Basophils (%) (Auto) 0 % (0-3) 0 % (0-3) Neutrophils # (Auto) 9.6 x10^3uL (1.8-7.7) 7.2 x10^3uL (1.8-7.7) Lymphocytes # (Auto) 1.5 x10^3/uL (1.0-4.8) 1.2 x10^3/uL (1.0-4.8) Monocytes # (Auto) 0.8 x10^3/uL (0.0-1.1) 0.8 x10^3/uL (0.0-1.1) Eosinophils # (Auto) 0.0 x10^3/uL (0.0-0.7) 0.0 x10^3/uL (0.0-0.7) Basophils # (Auto) 0.0 x10^3/uL (0.0-0.2) 0.0 x10^3/uL (0.0-0.2) Prothrombin Time 13.9 SEC (11.7-14.0) Prothromb Time International Ratio 1.1 (0.8-1.1) Activated Partial Thromboplast Time 31 SEC (24-38) Urine Collection Type Unknown Urine Color Yellow Urine Clarity Clear Urine pH 6.0 Urine Specific [place] <=1.005 Urine Protein Negative mg/dL (NEG-TRACE) Urine Glucose (UA) Negative mg/dL (NEG) Urine Ketones (Stick) Negative mg/dL (NEG) Urine Blood Trace (NEG) Urine Nitrite Negative (NEG) Urine Bilirubin Negative (NEG) Urine Urobilinogen Dipstick 0.2 mg/dL (0.2 mg/dL) Urine Leukocyte Esterase Negative (NEG) Urine RBC 1-2 /HPF (0-2) Urine WBC 0 /HPF (0-4) Urine Squamous Epithelial Cells Few /LPF Urine Bacteria 0 /HPF (0-FEW) Sodium Level 133 mmol/L (136-145) 135 mmol/L (136-145) Potassium Level 4.3 mmol/L (3.5-5.1) 4.9 mmol/L (3.5-5.1) Chloride Level 96 mmol/L (98-107) 100 mmol/L (98-107) Carbon Dioxide Level 27 mmol/L (21-32) 26 mmol/L (21-32) Anion Gap 10 (6-14) 9 (6-14) Blood Urea Nitrogen 26 mg/dL (7-20) 26 mg/dL (7-20) Creatinine 1.0 mg/dL (0.6-1.0) 1.1 mg/dL (0.6-1.0) Estimated GFR (Cockcroft-Gault) 52.8 47.3 BUN/Creatinine Ratio 26 (6-20) Glucose Level 149 mg/dL (70-99) 176 mg/dL (70-99) Calcium Level 9.8 mg/dL (8.5-10.1) 9.6 mg/dL (8.5-10.1) Magnesium Level 2.6 mg/dL (1.8-2.4) Total Bilirubin 0.5 mg/dL (0.2-1.0) Aspartate Amino Transf (AST/SGOT) 20 U/L (15-37) Alanine Aminotransferase (ALT/SGPT) 25 U/L (14-59) Alkaline Phosphatase 91 U/L (46-116) Troponin I Quantitative < 0.017 ng/mL (0.000-0.055) RM-Man-O-Type Natriuretic Peptide 49 pg/mL (0-449) Total Protein 8.2 g/dL (6.4-8.2) Albumin 4.2 g/dL (3.4-5.0) Albumin/Globulin Ratio 1.1 (1.0-1.7) Test 10/27/16 07:17 10/27/16 11:11 Glucose (Fingerstick) 162 mg/dL (70-99) 170 mg/dL (70-99) Laboratory Tests Test 10/26/16 16:35 10/26/16 16:37 10/26/16 20:16 10/27/16 05:00 Glucose (Fingerstick) 157 mg/dL (70-99) 151 mg/dL (70-99) White Blood Count 11.8 x10^3/uL (4.0-11.0) 9.3 x10^3/uL (4.0-11.0) Red Blood Count 4.52 x10^6/uL (3.50-5.40) 4.29 x10^6/uL (3.50-5.40) Hemoglobin 13.7 g/dL (12.0-15.5) 13.2 g/dL (12.0-15.5) Hematocrit 42.4 % (36.0-47.0) 40.5 % (36.0-47.0) Mean Corpuscular Volume 94 fL (79-100) 94 fL (79-100) Mean Corpuscular Hemoglobin 30 pg (25-35) 31 pg (25-35) Mean Corpuscular Hemoglobin Concent 32 g/dL (31-37) 33 g/dL (31-37) Red Cell Distribution Width 14.2 % (11.5-14.5) 14.2 % (11.5-14.5) Platelet Count 315 x10^3/uL (140-400) 255 x10^3/uL (140-400) Neutrophils (%) (Auto) 81 % (31-73) 78 % (31-73) Lymphocytes (%) (Auto) 12 % (24-48) 13 % (24-48) Monocytes (%) (Auto) 7 % (0-9) 9 % (0-9) Eosinophils (%) (Auto) 0 % (0-3) 0 % (0-3) Basophils (%) (Auto) 0 % (0-3) 0 % (0-3) Neutrophils # (Auto) 9.6 x10^3uL (1.8-7.7) 7.2 x10^3uL (1.8-7.7) Lymphocytes # (Auto) 1.5 x10^3/uL (1.0-4.8) 1.2 x10^3/uL (1.0-4.8) Monocytes # (Auto) 0.8 x10^3/uL (0.0-1.1) 0.8 x10^3/uL (0.0-1.1) Eosinophils # (Auto) 0.0 x10^3/uL (0.0-0.7) 0.0 x10^3/uL (0.0-0.7) Basophils # (Auto) 0.0 x10^3/uL (0.0-0.2) 0.0 x10^3/uL (0.0-0.2) Prothrombin Time 13.9 SEC (11.7-14.0) Prothromb Time International Ratio 1.1 (0.8-1.1) Activated Partial Thromboplast Time 31 SEC (24-38) Urine Collection Type Unknown Urine Color Yellow Urine Clarity Clear Urine pH 6.0 Urine Specific [place] <=1.005 Urine Protein Negative mg/dL (NEG-TRACE) Urine Glucose (UA) Negative mg/dL (NEG) Urine Ketones (Stick) Negative mg/dL (NEG) Urine Blood Trace (NEG) Urine Nitrite Negative (NEG) Urine Bilirubin Negative (NEG) Urine Urobilinogen Dipstick 0.2 mg/dL (0.2 mg/dL) Urine Leukocyte Esterase Negative (NEG) Urine RBC 1-2 /HPF (0-2) Urine WBC 0 /HPF (0-4) Urine Squamous Epithelial Cells Few /LPF Urine Bacteria 0 /HPF (0-FEW) Sodium Level 133 mmol/L (136-145) 135 mmol/L (136-145) Potassium Level 4.3 mmol/L (3.5-5.1) 4.9 mmol/L (3.5-5.1) Chloride Level 96 mmol/L (98-107) 100 mmol/L (98-107) Carbon Dioxide Level 27 mmol/L (21-32) 26 mmol/L (21-32) Anion Gap 10 (6-14) 9 (6-14) Blood Urea Nitrogen 26 mg/dL (7-20) 26 mg/dL (7-20) Creatinine 1.0 mg/dL (0.6-1.0) 1.1 mg/dL (0.6-1.0) Estimated GFR (Cockcroft-Gault) 52.8 47.3 BUN/Creatinine Ratio 26 (6-20) Glucose Level 149 mg/dL (70-99) 176 mg/dL (70-99) Calcium Level 9.8 mg/dL (8.5-10.1) 9.6 mg/dL (8.5-10.1) Magnesium Level 2.6 mg/dL (1.8-2.4) Total Bilirubin 0.5 mg/dL (0.2-1.0) Aspartate Amino Transf (AST/SGOT) 20 U/L (15-37) Alanine Aminotransferase (ALT/SGPT) 25 U/L (14-59) Alkaline Phosphatase 91 U/L (46-116) Troponin I Quantitative < 0.017 ng/mL (0.000-0.055) AD-Sfs-M-Type Natriuretic Peptide 49 pg/mL (0-449) Total Protein 8.2 g/dL (6.4-8.2) Albumin 4.2 g/dL (3.4-5.0) Albumin/Globulin Ratio 1.1 (1.0-1.7) Test 10/27/16 07:17 10/27/16 11:11 Glucose (Fingerstick) 162 mg/dL (70-99) 170 mg/dL (70-99) JUSTO SCHMITZ MD Oct 27, 2016 14:07
--- NOTE | 2016-10-27 14:41 | RAD ---
MRI BRAIN WITH AND WITHOUT CONTRAST, IAC protocol History: Right face numbness and pain. Hearing decreased x1 day. Comparison: CT head without contrast, prior day. Technique: Routine multiplanar multiple pulse sequence images of the brain were obtained before and after 5 cc Gadavist IV contrast. Small [id number], thin slice IAC sequences performed. Findings: There are multiple small foci of increased T2 FLAIR signal in the periventricular white matter. Finding is nonspecific but in a patient of this age is commonly due to chronic small vessel ischemic disease. Diffusion weighted sequences demonstrate no evidence of acute ischemia. Ventricles and sulci are prominent compatible with age-related cerebral atrophy. Atrophy is most apparent in the bilateral parietal lobes. There is no mass effect, midline shift, extra-axial fluid collection, or intraparenchymal hemorrhage. There is no abnormal postcontrast enhancement on the whole brain images. Normal vascular flow voids are present. The orbital structures appear intact. Mild mucosal thickening bilateral ethmoid sinuses. The other visualized paranasal sinuses are clear. No cerebellar tonsillar ectopia. Empty sella. There is no fluid signal in the mastoid air cells. There is no abnormal enhancement in the internal auditory canals. Normal course and caliber of the cranial nerves VII and VIII. No cerebellopontine angle mass. Root entry zones of the trigeminal nerves are unremarkable. Cochleae and semicircular canals appear normal. IMPRESSION: 1. There is no acute intracranial abnormality. 2. IACs are normal. 3. Age-related cerebral atrophy. Periventricular white matter changes probably due to chronic small vessel ischemic disease.
[2016-10-27 15:20] VITALS: BP 129/58
[2016-10-27] MEDS ORDERED: DUREZOL RIGHTEYE SCH (21:00)
[2016-10-27] MEDS ORDERED: ATORVASTATIN CALCIUM 10 MG TABLET. PO SCH (21:00)
--- NOTE | 2016-10-27 22:18 | DS ---
DATE OF DISCHARGE: 10/27/2016 ADMISSION DIAGNOSES: Transient ischemic attack. DISCHARGE DIAGNOSIS: Resolving transient ischemic attack. HOSPITAL COURSE: The patient is a pleasant 86-year-old female presented with TIA symptoms, she was admitted. We initially consulted Neurology. We were going to get an MRI, but the CAT scan really show much and patient really wants to go home this morning, she is stable. I did examine her. Her heart tones are normal. Her lungs are clear. Her abdomen is soft. Neurological, she is alert and oriented, moving all extremities. We plan to discharge. DISPOSITION: Home. ACTIVITY: As tolerated. DIET: Low sodium. MEDICATIONS: Please see the MRAD. TOTAL TIME ON DISCHARGE: 33 minutes. NEREYDA TERRELL DO DR: JEANNE/huy JOB#: [id number] / [id number]
[2016-10-28] MEDS ORDERED: LOSARTAN POTASSIUM 50 MG TABLET. PO SCH (16:00)
== END 2016-10-27 15:56 | disposition home or self-care (01) | DRG 69 ==
LOC: ER 16:15 → 6 SOUTH 18:19
PROVIDERS: ADMIT Internal Medicine; ATTEND Internal Medicine
DX: G45.9 Transient cerebral ischemic attack, unspecified (principal); I16.0 Hypertensive urgency; E78.5 Hyperlipidemia, unspecified; I10 Essential (primary) hypertension; K21.9 Gastro-esophageal reflux disease without esophagitis; H40.9 Unspecified glaucoma; E11.9 Type 2 diabetes mellitus without complications; M19.90 Unspecified osteoarthritis, unspecified site; Z79.899 Other long term (current) drug therapy; Z79.82 Long term (current) use of aspirin; Z82.49 Family history of ischemic heart disease and other diseases of the circulatory system; Z79.1 Long term (current) use of non-steroidal anti-inflammatories (NSAID); Z98.49 Cataract extraction status, unspecified eye
CPT/HCPCS: 36415; 70450; 70553; 71010; 80048; 80053; 81001; 82962; 83735; 83880; 84484; 85027; 85610; 85730; 93005; J1815; 99285-25; A9585

== ENCOUNTER 2017-11-26 18:10 | Emergency (ER) | payer MEDICARE, BC ==
[2017-11-26 18:52] LABS: ADD MAN DIFF? NO
[2017-11-26 18:57] LABS: BASO % 1 % (0-3); EOS # 0.1 x10^3/uL (0.0-0.7); EOS % 1 % (0-3); HEMATOCRIT 35.6 % (36.0-47.0); HEMOGLOBIN 11.9 g/dL (12.0-15.5); LYMPH # 1.3 x10^3/uL (1.0-4.8); LYMPH % 23 % (24-48); MEAN CORPUSCULAR HEMOGLOBIN 29 pg (25-35); MEAN CORPUSCULAR HGB CONC 33 g/dL (31-37); MEAN CORPUSCULAR VOLUME 88 fL (79-100); MONO # 0.5 x10^3/uL (0.0-1.1); MONO % 10 % (0-9); NEUT # 3.8 x10^3uL (1.8-7.7); NEUT % 66 % (31-73); PLATELET COUNT 238 x10^3/uL (140-400); RED BLOOD COUNT 4.07 x10^6/uL (3.50-5.40); RED CELL DISTRIBUTION WIDTH 15.5 % (11.5-14.5); WHITE BLOOD COUNT 5.7 x10^3/uL (4.0-11.0)
[2017-11-26 19:12] LABS: TROPONINI < 0.017 ng/mL (0.000-0.055)
[2017-11-26 19:13] LABS: ANION GAP 12 (6-14); BLOOD UREA NITROGEN 20 mg/dL (7-20); CALCIUM 9.7 mg/dL (8.5-10.1); CARBON DIOXIDE 25 mmol/L (21-32); CHLORIDE 98 mmol/L (98-107); CREATININE 1.2 mg/dL (0.6-1.0); GFR 42.7; GLUCOSE 122 mg/dL (70-99); POTASSIUM 4.4 mmol/L (3.5-5.1); SODIUM 135 mmol/L (136-145)
== END 2017-11-26 19:35 | disposition home or self-care (01) ==
LOC: ER 18:10
DX: R42 Dizziness and giddiness (principal); E11.39 Type 2 diabetes mellitus with other diabetic ophthalmic complication; H40.9 Unspecified glaucoma; E78.00 Pure hypercholesterolemia, unspecified; I10 Essential (primary) hypertension; Z88.8 Allergy status to other drugs, medicaments and biological substances
CPT/HCPCS: 36415; 70450; 70486; 80048; 84484; 85025; 99285-25

== ENCOUNTER 2019-02-27 15:48 | Inpatient (IN) | payer MEDICARE, BC ==
[~2019-02-27] VITALS: Ht 149.9 cm; Wt 55.1 kg
[~2019-02-27 15:48] MED LIST changes: +ATRO10DR RIGHTEYE; +CARB15DR3 EACHEYE; +CARV12.511 PO; +DIFL5DRO2 RIGHTEYE; +ERYT1OIN6 OP; +LOSA100T14 PO; -LOSA100T6 PO
[2019-02-27 16:21] LABS: BILIRUBIN,URINE NEGATIVE (NEG); CLARITY,URINE TURBID; COLOR,URINE YELLOW; NITRITE,URINE POSITIVE (NEG); PH,URINE 7.5; PROTEIN,URINE 30 mg/dL (NEG-TRACE); UROBILINOGEN,URINE 0.2 mg/dL (0.2 mg/dL)
--- NOTE | 2019-02-27 16:33 | PHYS DOC ---
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 Patient describes pain in her right upper quadrant, states been off and on 3 weeks. Pain is worse with movements. States it comes and goes, described as a dull pain. Patient states she was chilling last night and given the continued pain she presents to the ER for further evaluation. Patient denies any vomiting, diarrhea, chest pain, shortness of breath. Review of Systems Review of Systems Constitutional: Chills Respiratory: Denies cough or shortness of breath [] Cardiovascular: No additional information not addressed in HPI [] GI: + abdominal pain, + nausea, no vomiting, bloody stools or diarrhea [] : Urine is foul smelling Musculoskeletal: Denies back pain or joint pain [] Integument: Denies rash or skin lesions [] Neurologic: Denies headache, focal weakness or sensory changes [] All other systems were reviewed and found to be within normal limits, except as documented in this note. Current Medications Current Medications Current Medications Medications (Trade) Dose Ordered Sig/Calvin Start Time Stop Time Status Last Admin Dose Admin Acetaminophen (Tylenol) 1,000 mg 1X ONCE 02/27/19 16:45 02/27/19 16:46 DC 02/27/19 16:45 1,000 MG Ceftriaxone Sodium (Rocephin) 1 gm 1X ONCE 02/27/19 17:15 02/27/19 17:16 DC 02/27/19 17:08 1 GM Sodium Chloride 1,000 ml @ 1,620 mls/hr Q38M 02/27/19 18:03 02/27/19 18:51 DC Allergies Allergies Allergies Coded Allergies Type Severity Reaction Last Updated Verified amlodipine Allergy Intermediate SWELLING 12/26/15 Yes hydrochlorothiazide Allergy Intermediate DIZZINESS 12/26/15 Yes nitrofurantoin Allergy Intermediate ANXIETY 12/26/15 Yes Physical Exam Physical Exam Constitutional: Well developed, well nourished, no acute distress, non-toxic appearance. [] HENT: Normocephalic, atraumatic, bilateral external ears normal, oropharynx moist, no oral exudates, nose normal. [] Eyes: PERRLA, EOMI, conjunctiva normal, no discharge. [] Cardiovascular:Heart rate regular rhythm, no murmur [] Lungs & Thorax: Bilateral breath sounds clear to auscultation [] Abdomen: Bowel sounds normal, soft, no tenderness, no masses, no pulsatile mass es. [] Skin: Warm, dry, no erythema, no rash. [] Back: No tenderness, no CVA tenderness. [] Extremities: No tenderness, no edema. [] Neurologic: Alert and oriented X 3, no focal deficits noted. [] Psychologic: Affect normal, judgement normal, mood normal. [] Current Patient Data Vital Signs Vital Signs Date Time Temp Pulse Resp B/P (MAP) Pulse Ox O2 Delivery O2 Flow Rate FiO2 02/27/19 17:48 88 17 123/57 (79) 93 Room Air 02/27/19 16:20 101.8 101.8 Lab Values Laboratory Tests Test 02/27/19 16:15 02/27/19 16:40 Urine Collection Type Unknown Urine Color Yellow Urine Clarity Turbid Urine pH 7.5 Urine Specific [place] 1.015 Urine Protein 30 mg/dL (NEG-TRACE) Urine Glucose (UA) 250 mg/dL (NEG) Urine Ketones (Stick) Negative mg/dL (NEG) Urine Blood Moderate (NEG) Urine Nitrite Positive (NEG) Urine Bilirubin Negative (NEG) Urine Urobilinogen Dipstick 0.2 mg/dL (0.2 mg/dL) Urine Leukocyte Esterase Large (NEG) Urine RBC Field obscured /HPF (0-2) Urine WBC Tntc /HPF (0-4) Urine Bacteria Many /HPF (0-FEW) White Blood Count 7.3 x10^3/uL (4.0-11.0) Red Blood Count 3.71 x10^6/uL (3.50-5.40) Hemoglobin 10.9 g/dL (12.0-15.5) L Hematocrit 33.1 % (36.0-47.0) L Mean Corpuscular Volume 89 fL (79-100) Mean Corpuscular Hemoglobin 29 pg (25-35) Mean Corpuscular Hemoglobin Concent 33 g/dL (31-37) Red Cell Distribution Width 15.7 % (11.5-14.5) H Platelet Count 194 x10^3/uL (140-400) Neutrophils (%) (Auto) 93 % (31-73) H Lymphocytes (%) (Auto) 3 % (24-48) L Monocytes (%) (Auto) 4 % (0-9) Eosinophils (%) (Auto) 0 % (0-3) Basophils (%) (Auto) 0 % (0-3) Neutrophils # (Auto) 6.7 x10^3/uL (1.8-7.7) Lymphocytes # (Auto) 0.2 x10^3/uL (1.0-4.8) L Monocytes # (Auto) 0.3 x10^3/uL (0.0-1.1) Eosinophils # (Auto) 0.0 x10^3/uL (0.0-0.7) Basophils # (Auto) 0.0 x10^3/uL (0.0-0.2) Segmented Neutrophils % 81 % (35-66) H Band Neutrophils % 13 % (0-9) H Lymphocytes % 3 % (24-48) L Monocytes % 2 % (0-10) Basophils % 1 % (0-3) Platelet Estimate Adequate (ADEQUATE) Sodium Level 137 mmol/L (136-145) Potassium Level 3.9 mmol/L (3.5-5.1) Chloride Level 101 mmol/L (98-107) Carbon Dioxide Level 21 mmol/L (21-32) Anion Gap 15 (6-14) H Blood Urea Nitrogen 18 mg/dL (7-20) Creatinine 1.5 mg/dL (0.6-1.0) H Estimated GFR (Cockcroft-Gault) 32.9 BUN/Creatinine Ratio 12 (6-20) Glucose Level 213 mg/dL (70-99) H Lactic Acid Level 5.5 mmol/L (0.4-2.0) *H Calcium Level 9.0 mg/dL (8.5-10.1) Total Bilirubin 0.5 mg/dL (0.2-1.0) Aspartate Amino Transferase (AST) 27 U/L (15-37) Alanine Aminotransferase (ALT) 22 U/L (14-59) Alkaline Phosphatase 77 U/L (46-116) Total Protein 7.6 g/dL (6.4-8.2) Albumin 3.7 g/dL (3.4-5.0) Albumin/Globulin Ratio 0.9 (1.0-1.7) L Laboratory Tests 02/27/19 16:40 Laboratory Tests 02/27/19 16:40 Microbiology 02/27/19 Urine Culture - Final, Complete 02/27/19 Urine Culture Result 1 (JIN) - Final, Complete 02/27/19 Antimicrobic Susceptibility - Final, Complete EKG EKG EKG reviewed, sinus tachycardia, no evidence of acute ST elevation SC, left axis deviation.[] Interpretation Time: Interpretation time 1622 Radiology/Procedures Radiology/Procedures [] Course & Med Decision Making Course & Med Decision Making Pertinent Labs and Imaging studies reviewed. (See chart for details) []88-year-old female presents to the emergency department with complaints of abdominal pain, chills, nausea, fever. Patient describes pain in her right upper quadrant, states been off and on 3 weeks. Pain is worse with movements. States it comes and goes, described as a dull pain. Patient states she was chilling la st night and given the continued pain she presents to the ER for further evaluation. Patient denies any vomiting, diarrhea, chest pain, shortness of breath. Labs reviewed Evidence of UTI and Severe sepsis, lactic acid 5.0 Sepsis protocol initiated with cultures obtained Discussed admit with patient/family Discussed admit with Hospitalist (Laure) Yasmin Disclaimer Yasmin Disclaimer This electronic medical record was generated, in whole or in part, using a voice recognition dictation system. Departure Departure Impression: Primary Impression: Severe sepsis Additional Impression: UTI (urinary tract infection) Disposition: ADMITTED INPATIENT Admitting Physician: ANTONY Condition: STABLE Referrals: ZAHRA ESPINOSA MD (PCP) Scripts Cefdinir (CEFDINIR) 300 Mg Capsule 300 MG PO BID for Infection for 3 Days, #6 CAP Prov: ELLY KOEHLER MD 03/02/19 Date and Time of Reassessment Date: Feb 27, 2019 Time: 18:00 Fluid Challenge Is the fluid challenge complet: No IBW Target Volume Used: Yes BMI > 30: No Vital Signs Vital Signs: Vital Signs Date Time Temp Pulse Resp B/P (MAP) Pulse Ox O2 Delivery O2 Flow Rate FiO2 02/27/19 17:48 88 17 123/57 (79) 93 Room Air 02/27/19 16:20 101.8 101.8 Temperature Source: Oral Respirations Respiratory Effort: Normal Cardiovascular Pulse Rhythm: Regular Heart: Nml rate, reg. rhythm Capillary Refil Capillary Refill: Rt Hand < 3 seconds Peripheral Pulse Pulse Location: Monitor Pulse Strength: Normal (2+) Pulse Assessment Method: NIBP Integumentary Skin Moisture: Dry Problem Qualifiers HERNESTO LEYVA MD Feb 27, 2019 16:33
[2019-02-27 16:35] LABS: BACTERIA,URINE MANY /HPF (0-FEW); RBC,URINE FIELD OBSCURED /HPF (0-2); WBC,URINE TNTC /HPF (0-4)
[2019-02-27] MEDS ORDERED: ACETAMINOPHEN 500 MG TABLET PO ONE (16:45)
[2019-02-27 16:57] LABS: BASO % 0 % (0-3); EOS % 0 % (0-3); HEMATOCRIT 33.1 % (36.0-47.0); HEMOGLOBIN 10.9 g/dL (12.0-15.5); LYMPH # 0.2 x10^3/uL (1.0-4.8); LYMPH % 3 % (24-48); MEAN CORPUSCULAR HEMOGLOBIN 29 pg (25-35); MEAN CORPUSCULAR HGB CONC 33 g/dL (31-37); MEAN CORPUSCULAR VOLUME 89 fL (79-100); MONO # 0.3 x10^3/uL (0.0-1.1); MONO % 4 % (0-9); NEUT # 6.7 x10^3/uL (1.8-7.7); NEUT % 93 % (31-73); PLATELET COUNT 194 x10^3/uL (140-400); RED BLOOD COUNT 3.71 x10^6/uL (3.50-5.40); RED CELL DISTRIBUTION WIDTH 15.7 % (11.5-14.5); WHITE BLOOD COUNT 7.3 x10^3/uL (4.0-11.0)
[2019-02-27 17:00] LABS: CREATININE 1.5 mg/dL (0.6-1.0); GFR 32.9; POTASSIUM 3.9 mmol/L (3.5-5.1)
[2019-02-27 17:06] LABS: ALBUMIN 3.7 g/dL (3.4-5.0); ALBUMIN/GLOBULIN RATIO 0.9 (1.0-1.7); TOTAL BILIRUBIN 0.5 mg/dL (0.2-1.0); TOTAL PROTEIN 7.6 g/dL (6.4-8.2)
[2019-02-27] MEDS ORDERED: IV NORMAL SALINE 1000ML BAG 1,000 ML IV ONE ×2 (17:15→19:00)
[2019-02-27] MEDS ORDERED: cefTRIAXone IV Push 1 GM VIAL. IVP ONE (17:15)
[2019-02-27 17:22] LABS: % BANDS 13 % (0-9); % BASOS 1 % (0-3); % LYMPHS 3 % (24-48); % MONOS 2 % (0-10); % SEGS 81 % (35-66)
[2019-02-27 17:24] LABS: PLT ESTIMATE ADEQUATE (ADEQUATE)
[2019-02-27] MEDS ORDERED: IV NORMAL SALINE 1000ML BAG 1,000 ML IV SCH (18:03)
[2019-02-27] MEDS ORDERED: ONDANSETRON PF 4 MG/2 ML VIAL. IV PRN (18:15)
[2019-02-27] MEDS ORDERED: ACETAMINOPHEN 325 MG TABLET. PO PRN ×2 (18:15→20:45)
--- NOTE | 2019-02-27 19:28 | HP ---
ADMIT DATE: 02/27/2019 CHIEF COMPLAINT: Abdominal pain. HISTORY OF PRESENT ILLNESS: The patient is a pleasant 88-year-old female who presented with abdominal pain, it is rated at 7/10. She has associated nausea, vomiting and pain. We checked a UA. She has got a urinary tract infection and actually meets criteria for sepsis with an elevated lactic acid of 5.5 and she has got a low-grade temperature of 101.8 and a little tachycardic at 105. I discussed the case with the ER physician. We are going to admit the patient with sepsis protocol. 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 FAMILY HISTORY: Coronary artery disease. SOCIAL HISTORY: She does not drink, smoke or take drugs. MEDICATIONS: Reviewed, please refer to the MRAD. ALLERGIES: ACETAZOLAMIDE, AMLODIPINE, HYDROCHLOROTHIAZIDE, NITROFURANTOIN, AND SPIRONOLACTONE REVIEW OF SYSTEMS: GENERAL: No history of weight change, weakness or fevers. SKIN: No bruising, hair changes or rashes. EYES: No blurred, double or loss of vision. NOSE AND THROAT: No history of nosebleeds, hoarseness or sore throat. HEART: No history of palpitations, chest pain or shortness of breath on exertion. LUNGS: Denies cough, hemoptysis, wheezing or shortness of breath. GASTROINTESTINAL: Denies changes in appetite, nausea, vomiting, diarrhea or constipation. She complains of abdominal pain. GENITOURINARY: No history of frequency, urgency, hesitancy or nocturia. NEUROLOGIC: Denies history of numbness, tingling, tremor or weakness. PSYCHIATRIC: No history of panic, anxiety or depression. ENDOCRINE: No history of heat or cold intolerance, polyuria or polydipsia. EXTREMITIES: Denies muscle weakness, joint pain, pain on walking or stiffness. PHYSICAL EXAMINATION: VITAL SIGNS: Temperature is 101.8, pulse 105, respirations 20, blood pressure 125/60. GENERAL: No apparent distress. Alert and oriented. HEENT: Head is normocephalic, atraumatic, pupils were equally round and reactive to light and accommodation. NECK: Supple, no JVD, no thyromegaly was noted. LUNGS: Clear to auscultation in all lung portillo without rhonchi or wheezing. HEART: RRR, S1, S2 present. Peripheral pulses intact, no obvious murmurs were noted. ABDOMEN: Soft, nontender. Positive bowel sounds no organomegaly, normal bowel sounds. EXTREMITIES: Without any cyanosis, clubbing, or edema. Pedal pulses intact, Homans sign is negative. NEUROLOGIC: Normal speech, normal tone. A & O x 3, moves all extremities, no obvious focal deficits. PSYCHIATRIC: Normal affect, normal mood. Stable. SKIN: No ulcerations or rashes, good skin turgor, no jaundice. VASCULAR: Good capillary refill, neurovascular bundle appears to be intact. LABORATORY DATA: Urinalysis shows moderate blood, positive for nitrites, a large amount of leukocyte esterase, too numerous to count white cells. White count 7. ASSESSMENT AND PLAN: Sepsis with urinary tract infection. The patient has been admitted. We have given her IV antibiotics, IV fluids with sepsis protocol. Continue home meds, DVT prophylaxis. Full code. Consult ID. NEREYDA TERRELL DO DR: JEANNE/huy JOB#: [id number] / [id number]
[2019-02-27 19:56] VITALS: BP 120/46
[2019-02-27] MEDS ORDERED: MAGNESIUM HYDROXIDE 2,400 MG/30 ML ORAL.SUSP. PO SCH (20:45)
[2019-02-27] MEDS: tiZANidine 4 MG TABLET. PO SCH (21:13)
[2019-02-27] MEDS: ATORVASTATIN CALCIUM 10 MG TABLET. PO SCH (21:13)
[2019-02-27 23:13] VITALS: BP 90/39
[2019-02-28 01:13] LABS: BASO % 1 % (0-3); EOS % 0 % (0-3); HEMATOCRIT 29.9 % (36.0-47.0); HEMOGLOBIN 9.8 g/dL (12.0-15.5); LYMPH # 0.4 x10^3/uL (1.0-4.8); LYMPH % 11 % (24-48); MEAN CORPUSCULAR HEMOGLOBIN 29 pg (25-35); MEAN CORPUSCULAR HGB CONC 33 g/dL (31-37); MEAN CORPUSCULAR VOLUME 89 fL (79-100); MONO # 0.3 x10^3/uL (0.0-1.1); MONO % 7 % (0-9); NEUT % 81 % (31-73); PLATELET COUNT 152 x10^3/uL (140-400); RED BLOOD COUNT 3.36 x10^6/uL (3.50-5.40); RED CELL DISTRIBUTION WIDTH 16.3 % (11.5-14.5); WHITE BLOOD COUNT 3.7 x10^3/uL (4.0-11.0)
[2019-02-28 01:35] LABS: ALBUMIN/GLOBULIN RATIO 0.8 (1.0-1.7); CALCIUM 8.3 mg/dL (8.5-10.1); CREATININE 1.2 mg/dL (0.6-1.0); GFR 42.6; POTASSIUM 4.2 mmol/L (3.5-5.1); TOTAL BILIRUBIN 0.4 mg/dL (0.2-1.0); TOTAL PROTEIN 6.6 g/dL (6.4-8.2)
[2019-02-28 03:34] VITALS: BP 145/57
[2019-02-28] MEDS: LEVOTHYROXINE 88 MCG TABLET PO SCH ×2 (03:37→06:00)
[2019-02-28 07:00] VITALS: BP 114/50
[2019-02-28] MEDS: TIMOLOL 0.5% OPHTH SOLUTION 5ML BOTTLE. OU SCH (08:00)
[2019-02-28] MEDS: ASPIRIN ENTERIC COATED 81 MG TABLET.DR. PO SCH (09:14)
[2019-02-28] MEDS: LOSARTAN POTASSIUM 50 MG TABLET. PO SCH (09:14)
[2019-02-28] MEDS: CALCIUM CARBONATE 500 MG TABLET PO SCH (09:15)
[2019-02-28] MEDS: CARVEDILOL 12.5 MG TABLET. PO SCH ×2 (09:15→16:47)
--- NOTE | 2019-02-28 10:08 | PDOC ---
Infectious Disease Note Vital Sign Vital Signs Vital Signs Date Time Temp Pulse Resp B/P (MAP) Pulse Ox O2 Delivery O2 Flow Rate FiO2 02/28/19 09:15 74 114/50 02/28/19 07:00 98.4 20 96 Room Air 98.4 Labs Lab Laboratory Tests Test 02/27/19 16:15 02/27/19 16:40 02/27/19 20:10 02/28/19 01:00 Urine Collection Type Unknown Urine Color Yellow Urine Clarity Turbid Urine pH 7.5 Urine Specific [place] 1.015 Urine Protein 30 mg/dL (NEG-TRACE) Urine Glucose (UA) 250 mg/dL (NEG) Urine Ketones (Stick) Negative mg/dL (NEG) Urine Blood Moderate (NEG) Urine Nitrite Positive (NEG) Urine Bilirubin Negative (NEG) Urine Urobilinogen Dipstick 0.2 mg/dL (0.2 mg/dL) Urine Leukocyte Esterase Large (NEG) Urine RBC Field obscured /HPF (0-2) Urine WBC Tntc /HPF (0-4) Urine Bacteria Many /HPF (0-FEW) White Blood Count 7.3 x10^3/uL (4.0-11.0) 3.7 x10^3/uL (4.0-11.0) Red Blood Count 3.71 x10^6/uL (3.50-5.40) 3.36 x10^6/uL (3.50-5.40) Hemoglobin 10.9 g/dL (12.0-15.5) 9.8 g/dL (12.0-15.5) Hematocrit 33.1 % (36.0-47.0) 29.9 % (36.0-47.0) Mean Corpuscular Volume 89 fL (79-100) 89 fL (79-100) Mean Corpuscular Hemoglobin 29 pg (25-35) 29 pg (25-35) Mean Corpuscular Hemoglobin Concent 33 g/dL (31-37) 33 g/dL (31-37) Red Cell Distribution Width 15.7 % (11.5-14.5) 16.3 % (11.5-14.5) Platelet Count 194 x10^3/uL (140-400) 152 x10^3/uL (140-400) Neutrophils (%) (Auto) 93 % (31-73) 81 % (31-73) Lymphocytes (%) (Auto) 3 % (24-48) 11 % (24-48) Monocytes (%) (Auto) 4 % (0-9) 7 % (0-9) Eosinophils (%) (Auto) 0 % (0-3) 0 % (0-3) Basophils (%) (Auto) 0 % (0-3) 1 % (0-3) Neutrophils # (Auto) 6.7 x10^3/uL (1.8-7.7) 3.0 x10^3/uL (1.8-7.7) Lymphocytes # (Auto) 0.2 x10^3/uL (1.0-4.8) 0.4 x10^3/uL (1.0-4.8) Monocytes # (Auto) 0.3 x10^3/uL (0.0-1.1) 0.3 x10^3/uL (0.0-1.1) Eosinophils # (Auto) 0.0 x10^3/uL (0.0-0.7) 0.0 x10^3/uL (0.0-0.7) Basophils # (Auto) 0.0 x10^3/uL (0.0-0.2) 0.0 x10^3/uL (0.0-0.2) Segmented Neutrophils % 81 % (35-66) Band Neutrophils % 13 % (0-9) Lymphocytes % 3 % (24-48) Monocytes % 2 % (0-10) Basophils % 1 % (0-3) Platelet Estimate Adequate (ADEQUATE) Sodium Level 137 mmol/L (136-145) 143 mmol/L (136-145) Potassium Level 3.9 mmol/L (3.5-5.1) 4.2 mmol/L (3.5-5.1) Chloride Level 101 mmol/L (98-107) 110 mmol/L (98-107) Carbon Dioxide Level 21 mmol/L (21-32) 25 mmol/L (21-32) Anion Gap 15 (6-14) 8 (6-14) Blood Urea Nitrogen 18 mg/dL (7-20) 15 mg/dL (7-20) Creatinine 1.5 mg/dL (0.6-1.0) 1.2 mg/dL (0.6-1.0) Estimated GFR (Cockcroft-Gault) 32.9 42.6 BUN/Creatinine Ratio 12 (6-20) 13 (6-20) Glucose Level 213 mg/dL (70-99) 132 mg/dL (70-99) Lactic Acid Level 5.5 mmol/L (0.4-2.0) 2.9 mmol/L (0.4-2.0) 1.3 mmol/L (0.4-2.0) Calcium Level 9.0 mg/dL (8.5-10.1) 8.3 mg/dL (8.5-10.1) Total Bilirubin 0.5 mg/dL (0.2-1.0) 0.4 mg/dL (0.2-1.0) Aspartate Amino Transf (AST/SGOT) 27 U/L (15-37) 31 U/L (15-37) Alanine Aminotransferase (ALT/SGPT) 22 U/L (14-59) 25 U/L (14-59) Alkaline Phosphatase 77 U/L (46-116) 66 U/L (46-116) Total Protein 7.6 g/dL (6.4-8.2) 6.6 g/dL (6.4-8.2) Albumin 3.7 g/dL (3.4-5.0) 3.0 g/dL (3.4-5.0) Albumin/Globulin Ratio 0.9 (1.0-1.7) 0.8 (1.0-1.7) Objective Assessment UTI, POA 02/27 Leukopenia Fever and chills - better Lactic acidosis - improving CAIN Plan Plan of Care Continue Rocephin f/u cultures Maintain hydration D/w nursing Thank you [id number] Patient seen and examined. Chart reviewed in detail. Case discussed with ORDER MAKE UP CLERK. Agree with above plan ZAIN GU APRN Feb 28, 2019 10:08 CAMPBELL HOLLEY MD Feb 28, 2019 18:56
[2019-02-28 11:00] VITALS: BP 101/44
--- NOTE | 2019-02-28 11:06 | PDOC ---
PROGRESS NOTES History of Present Illness History of Present Illness ASSESSMENT AND PLAN: Sepsis with urinary tract infection. fever hx tia acute renal tubular necrosis with acute renal failure leukopenia sec to sepsis anemia admitted. blood cultures urine culture IV antibiotics, IV fluids sepsis protocol. Continue home meds, DVT prophylaxis. Full code. Consult ID. retic fe panel abd sono nephrology consult 38 min pt exam, chart review, > 50% of time spent with exam, chart review, pt care coordination Vitals Vitals Vital Signs Date Time Temp Pulse Resp B/P (MAP) Pulse Ox O2 Delivery O2 Flow Rate FiO2 02/28/19 09:15 74 114/50 02/28/19 07:00 98.4 20 96 Room Air 98.4 Physical Exam General: Alert, Oriented X3, Cooperative, No acute distress Heart: Regular rate Lungs: Clear Abdomen: Normal bowel sounds, Soft Extremities: No clubbing, No cyanosis Skin: No significant lesion Labs LABS Laboratory Tests Test 02/27/19 16:15 02/27/19 16:40 02/27/19 20:10 02/28/19 01:00 Urine Collection Type Unknown Urine Color Yellow Urine Clarity Turbid Urine pH 7.5 Urine Specific [place] 1.015 Urine Protein 30 mg/dL (NEG-TRACE) Urine Glucose (UA) 250 mg/dL (NEG) Urine Ketones (Stick) Negative mg/dL (NEG) Urine Blood Moderate (NEG) Urine Nitrite Positive (NEG) Urine Bilirubin Negative (NEG) Urine Urobilinogen Dipstick 0.2 mg/dL (0.2 mg/dL) Urine Leukocyte Esterase Large (NEG) Urine RBC Field obscured /HPF (0-2) Urine WBC Tntc /HPF (0-4) Urine Bacteria Many /HPF (0-FEW) White Blood Count 7.3 x10^3/uL (4.0-11.0) 3.7 x10^3/uL (4.0-11.0) Red Blood Count 3.71 x10^6/uL (3.50-5.40) 3.36 x10^6/uL (3.50-5.40) Hemoglobin 10.9 g/dL (12.0-15.5) 9.8 g/dL (12.0-15.5) Hematocrit 33.1 % (36.0-47.0) 29.9 % (36.0-47.0) Mean Corpuscular Volume 89 fL (79-100) 89 fL (79-100) Mean Corpuscular Hemoglobin 29 pg (25-35) 29 pg (25-35) Mean Corpuscular Hemoglobin Concent 33 g/dL (31-37) 33 g/dL (31-37) Red Cell Distribution Width 15.7 % (11.5-14.5) 16.3 % (11.5-14.5) Platelet Count 194 x10^3/uL (140-400) 152 x10^3/uL (140-400) Neutrophils (%) (Auto) 93 % (31-73) 81 % (31-73) Lymphocytes (%) (Auto) 3 % (24-48) 11 % (24-48) Monocytes (%) (Auto) 4 % (0-9) 7 % (0-9) Eosinophils (%) (Auto) 0 % (0-3) 0 % (0-3) Basophils (%) (Auto) 0 % (0-3) 1 % (0-3) Neutrophils # (Auto) 6.7 x10^3/uL (1.8-7.7) 3.0 x10^3/uL (1.8-7.7) Lymphocytes # (Auto) 0.2 x10^3/uL (1.0-4.8) 0.4 x10^3/uL (1.0-4.8) Monocytes # (Auto) 0.3 x10^3/uL (0.0-1.1) 0.3 x10^3/uL (0.0-1.1) Eosinophils # (Auto) 0.0 x10^3/uL (0.0-0.7) 0.0 x10^3/uL (0.0-0.7) Basophils # (Auto) 0.0 x10^3/uL (0.0-0.2) 0.0 x10^3/uL (0.0-0.2) Segmented Neutrophils % 81 % (35-66) Band Neutrophils % 13 % (0-9) Lymphocytes % 3 % (24-48) Monocytes % 2 % (0-10) Basophils % 1 % (0-3) Platelet Estimate Adequate (ADEQUATE) Sodium Level 137 mmol/L (136-145) 143 mmol/L (136-145) Potassium Level 3.9 mmol/L (3.5-5.1) 4.2 mmol/L (3.5-5.1) Chloride Level 101 mmol/L (98-107) 110 mmol/L (98-107) Carbon Dioxide Level 21 mmol/L (21-32) 25 mmol/L (21-32) Anion Gap 15 (6-14) 8 (6-14) Blood Urea Nitrogen 18 mg/dL (7-20) 15 mg/dL (7-20) Creatinine 1.5 mg/dL (0.6-1.0) 1.2 mg/dL (0.6-1.0) Estimated GFR (Cockcroft-Gault) 32.9 42.6 BUN/Creatinine Ratio 12 (6-20) 13 (6-20) Glucose Level 213 mg/dL (70-99) 132 mg/dL (70-99) Lactic Acid Level 5.5 mmol/L (0.4-2.0) 2.9 mmol/L (0.4-2.0) 1.3 mmol/L (0.4-2.0) Calcium Level 9.0 mg/dL (8.5-10.1) 8.3 mg/dL (8.5-10.1) Total Bilirubin 0.5 mg/dL (0.2-1.0) 0.4 mg/dL (0.2-1.0) Aspartate Amino Transf (AST/SGOT) 27 U/L (15-37) 31 U/L (15-37) Alanine Aminotransferase (ALT/SGPT) 22 U/L (14-59) 25 U/L (14-59) Alkaline Phosphatase 77 U/L (46-116) 66 U/L (46-116) Total Protein 7.6 g/dL (6.4-8.2) 6.6 g/dL (6.4-8.2) Albumin 3.7 g/dL (3.4-5.0) 3.0 g/dL (3.4-5.0) Albumin/Globulin Ratio 0.9 (1.0-1.7) 0.8 (1.0-1.7) Assessment and Plan Assessmemt and Plan Problems Medical Problems: (1) Abdominal pain Status: Acute (2) Fever Status: Acute Comment Review of Relevant I have reviewed the following items gustavo (where applicable) has been applied. Labs Laboratory Tests Test 02/27/19 16:15 02/27/19 16:40 02/27/19 20:10 02/28/19 01:00 Urine Collection Type Unknown Urine Color Yellow Urine Clarity Turbid Urine pH 7.5 Urine Specific [place] 1.015 Urine Protein 30 mg/dL (NEG-TRACE) Urine Glucose (UA) 250 mg/dL (NEG) Urine Ketones (Stick) Negative mg/dL (NEG) Urine Blood Moderate (NEG) Urine Nitrite Positive (NEG) Urine Bilirubin Negative (NEG) Urine Urobilinogen Dipstick 0.2 mg/dL (0.2 mg/dL) Urine Leukocyte Esterase Large (NEG) Urine RBC Field obscured /HPF (0-2) Urine WBC Tntc /HPF (0-4) Urine Bacteria Many /HPF (0-FEW) White Blood Count 7.3 x10^3/uL (4.0-11.0) 3.7 x10^3/uL (4.0-11.0) Red Blood Count 3.71 x10^6/uL (3.50-5.40) 3.36 x10^6/uL (3.50-5.40) Hemoglobin 10.9 g/dL (12.0-15.5) 9.8 g/dL (12.0-15.5) Hematocrit 33.1 % (36.0-47.0) 29.9 % (36.0-47.0) Mean Corpuscular Volume 89 fL (79-100) 89 fL (79-100) Mean Corpuscular Hemoglobin 29 pg (25-35) 29 pg (25-35) Mean Corpuscular Hemoglobin Concent 33 g/dL (31-37) 33 g/dL (31-37) Red Cell Distribution Width 15.7 % (11.5-14.5) 16.3 % (11.5-14.5) Platelet Count 194 x10^3/uL (140-400) 152 x10^3/uL (140-400) Neutrophils (%) (Auto) 93 % (31-73) 81 % (31-73) Lymphocytes (%) (Auto) 3 % (24-48) 11 % (24-48) Monocytes (%) (Auto) 4 % (0-9) 7 % (0-9) Eosinophils (%) (Auto) 0 % (0-3) 0 % (0-3) Basophils (%) (Auto) 0 % (0-3) 1 % (0-3) Neutrophils # (Auto) 6.7 x10^3/uL (1.8-7.7) 3.0 x10^3/uL (1.8-7.7) Lymphocytes # (Auto) 0.2 x10^3/uL (1.0-4.8) 0.4 x10^3/uL (1.0-4.8) Monocytes # (Auto) 0.3 x10^3/uL (0.0-1.1) 0.3 x10^3/uL (0.0-1.1) Eosinophils # (Auto) 0.0 x10^3/uL (0.0-0.7) 0.0 x10^3/uL (0.0-0.7) Basophils # (Auto) 0.0 x10^3/uL (0.0-0.2) 0.0 x10^3/uL (0.0-0.2) Segmented Neutrophils % 81 % (35-66) Band Neutrophils % 13 % (0-9) Lymphocytes % 3 % (24-48) Monocytes % 2 % (0-10) Basophils % 1 % (0-3) Platelet Estimate Adequate (ADEQUATE) Sodium Level 137 mmol/L (136-145) 143 mmol/L (136-145) Potassium Level 3.9 mmol/L (3.5-5.1) 4.2 mmol/L (3.5-5.1) Chloride Level 101 mmol/L (98-107) 110 mmol/L (98-107) Carbon Dioxide Level 21 mmol/L (21-32) 25 mmol/L (21-32) Anion Gap 15 (6-14) 8 (6-14) Blood Urea Nitrogen 18 mg/dL (7-20) 15 mg/dL (7-20) Creatinine 1.5 mg/dL (0.6-1.0) 1.2 mg/dL (0.6-1.0) Estimated GFR (Cockcroft-Gault) 32.9 42.6 BUN/Creatinine Ratio 12 (6-20) 13 (6-20) Glucose Level 213 mg/dL (70-99) 132 mg/dL (70-99) Lactic Acid Level 5.5 mmol/L (0.4-2.0) 2.9 mmol/L (0.4-2.0) 1.3 mmol/L (0.4-2.0) Calcium Level 9.0 mg/dL (8.5-10.1) 8.3 mg/dL (8.5-10.1) Total Bilirubin 0.5 mg/dL (0.2-1.0) 0.4 mg/dL (0.2-1.0) Aspartate Amino Transf (AST/SGOT) 27 U/L (15-37) 31 U/L (15-37) Alanine Aminotransferase (ALT/SGPT) 22 U/L (14-59) 25 U/L (14-59) Alkaline Phosphatase 77 U/L (46-116) 66 U/L (46-116) Total Protein 7.6 g/dL (6.4-8.2) 6.6 g/dL (6.4-8.2) Albumin 3.7 g/dL (3.4-5.0) 3.0 g/dL (3.4-5.0) Albumin/Globulin Ratio 0.9 (1.0-1.7) 0.8 (1.0-1.7) Laboratory Tests Test 02/27/19 16:15 02/27/19 16:40 02/27/19 20:10 02/28/19 01:00 Urine Collection Type Unknown Urine Color Yellow Urine Clarity Turbid Urine pH 7.5 Urine Specific [place] 1.015 Urine Protein 30 mg/dL (NEG-TRACE) Urine Glucose (UA) 250 mg/dL (NEG) Urine Ketones (Stick) Negative mg/dL (NEG) Urine Blood Moderate (NEG) Urine Nitrite Positive (NEG) Urine Bilirubin Negative (NEG) Urine Urobilinogen Dipstick 0.2 mg/dL (0.2 mg/dL) Urine Leukocyte Esterase Large (NEG) Urine RBC Field obscured /HPF (0-2) Urine WBC Tntc /HPF (0-4) Urine Bacteria Many /HPF (0-FEW) White Blood Count 7.3 x10^3/uL (4.0-11.0) 3.7 x10^3/uL (4.0-11.0) Red Blood Count 3.71 x10^6/uL (3.50-5.40) 3.36 x10^6/uL (3.50-5.40) Hemoglobin 10.9 g/dL (12.0-15.5) 9.8 g/dL (12.0-15.5) Hematocrit 33.1 % (36.0-47.0) 29.9 % (36.0-47.0) Mean Corpuscular Volume 89 fL (79-100) 89 fL (79-100) Mean Corpuscular Hemoglobin 29 pg (25-35) 29 pg (25-35) Mean Corpuscular Hemoglobin Concent 33 g/dL (31-37) 33 g/dL (31-37) Red Cell Distribution Width 15.7 % (11.5-14.5) 16.3 % (11.5-14.5) Platelet Count 194 x10^3/uL (140-400) 152 x10^3/uL (140-400) Neutrophils (%) (Auto) 93 % (31-73) 81 % (31-73) Lymphocytes (%) (Auto) 3 % (24-48) 11 % (24-48) Monocytes (%) (Auto) 4 % (0-9) 7 % (0-9) Eosinophils (%) (Auto) 0 % (0-3) 0 % (0-3) Basophils (%) (Auto) 0 % (0-3) 1 % (0-3) Neutrophils # (Auto) 6.7 x10^3/uL (1.8-7.7) 3.0 x10^3/uL (1.8-7.7) Lymphocytes # (Auto) 0.2 x10^3/uL (1.0-4.8) 0.4 x10^3/uL (1.0-4.8) Monocytes # (Auto) 0.3 x10^3/uL (0.0-1.1) 0.3 x10^3/uL (0.0-1.1) Eosinophils # (Auto) 0.0 x10^3/uL (0.0-0.7) 0.0 x10^3/uL (0.0-0.7) Basophils # (Auto) 0.0 x10^3/uL (0.0-0.2) 0.0 x10^3/uL (0.0-0.2) Segmented Neutrophils % 81 % (35-66) Band Neutrophils % 13 % (0-9) Lymphocytes % 3 % (24-48) Monocytes % 2 % (0-10) Basophils % 1 % (0-3) Platelet Estimate Adequate (ADEQUATE) Sodium Level 137 mmol/L (136-145) 143 mmol/L (136-145) Potassium Level 3.9 mmol/L (3.5-5.1) 4.2 mmol/L (3.5-5.1) Chloride Level 101 mmol/L (98-107) 110 mmol/L (98-107) Carbon Dioxide Level 21 mmol/L (21-32) 25 mmol/L (21-32) Anion Gap 15 (6-14) 8 (6-14) Blood Urea Nitrogen 18 mg/dL (7-20) 15 mg/dL (7-20) Creatinine 1.5 mg/dL (0.6-1.0) 1.2 mg/dL (0.6-1.0) Estimated GFR (Cockcroft-Gault) 32.9 42.6 BUN/Creatinine Ratio 12 (6-20) 13 (6-20) Glucose Level 213 mg/dL (70-99) 132 mg/dL (70-99) Lactic Acid Level 5.5 mmol/L (0.4-2.0) 2.9 mmol/L (0.4-2.0) 1.3 mmol/L (0.4-2.0) Calcium Level 9.0 mg/dL (8.5-10.1) 8.3 mg/dL (8.5-10.1) Total Bilirubin 0.5 mg/dL (0.2-1.0) 0.4 mg/dL (0.2-1.0) Aspartate Amino Transf (AST/SGOT) 27 U/L (15-37) 31 U/L (15-37) Alanine Aminotransferase (ALT/SGPT) 22 U/L (14-59) 25 U/L (14-59) Alkaline Phosphatase 77 U/L (46-116) 66 U/L (46-116) Total Protein 7.6 g/dL (6.4-8.2) 6.6 g/dL (6.4-8.2) Albumin 3.7 g/dL (3.4-5.0) 3.0 g/dL (3.4-5.0) Albumin/Globulin Ratio 0.9 (1.0-1.7) 0.8 (1.0-1.7) Medications Current Medications Acetaminophen (Tylenol) 1,000 mg 1X ONCE PO Last administered on 02/27/19at 16:45; Start 02/27/19 at 16:45; Stop 02/27/19 at 16:46; Status DC Ceftriaxone Sodium (Rocephin) 1 gm 1X ONCE IVP Last administered on 02/27/19at 17:08; Start 02/27/19 at 17:15; Stop 02/27/19 at 17:16; Status DC Sodium Chloride 1,000 ml @ 1,000 mls/hr 1X ONCE IV Last administered on 02/27/19at 17:09; Start 02/27/19 at 17:15; Stop 02/27/19 at 18:14; Status DC Sodium Chloride 1,000 ml @ 1,620 mls/hr Q38M IV ; Start 02/27/19 at 18:03; Stop 02/27/19 at 18:51; Status DC Ondansetron HCl (Zofran) 4 mg PRN Q8HRS PRN IV NAUSEA/VOMITING; Start 02/27/19 at 18:15; Stop 02/28/19 at 18:14 Acetaminophen (Tylenol) 650 mg PRN Q4HRS PRN PO FEVER Last administered on 02/28/19at 03:37; Start 02/27/19 at 18:15; Stop 02/28/19 at 18:14 Sodium Chloride 1,000 ml @ 1,000 mls/hr 1X ONCE IV Last administered on 02/27/19at 19:00; Start 02/27/19 at 19:00; Stop 02/27/19 at 19:59; Status DC Acetaminophen (Tylenol) 325 mg PRN Q6HRS PRN PO MILD PAIN / TEMP; Start 02/27/19 at 20:45 Aspirin (Ecotrin) 81 mg DAILY PO Last administered on 02/28/19at 09:14; Start 02/28/19 at 09:00 Atorvastatin Calcium (Lipitor) 10 mg QHS PO Last administered on 02/27/19at 21:13; Start 02/27/19 at 21:00 Calcium Carbonate/ Glycine (Oscal) 500 mg DAILY PO Last administered on 02/28/19at 09:15; Start 02/28/19 at 09:00 Carvedilol (Coreg) 12.5 mg BIDWMEALS PO Last administered on 02/28/19at 09:15; Start 02/28/19 at 08:00 Levothyroxine Sodium (Synthroid) 88 mcg DAILY06 PO Last administered on 02/28/19at 06:00; Start 02/28/19 at 06:00 Magnesium Hydroxide (Milk Of Magnesia) 400 mg PRN DAILY PO ; Start 02/27/19 at 20:45 Timolol Maleate (Timoptic 0.5% Ophth) 1 drop DAILYWBKFT OU ; Start 02/28/19 at 08:00 Losartan Potassium (Cozaar) 100 mg DAILY PO Last administered on 02/28/19at 09:14; Start 02/28/19 at 09:00 Tizanidine HCl (Zanaflex) 2 mg QHS PO Last administered on 02/27/19at 21:13; Start 02/27/19 at 21:00 Latanoprost (Xalatan) 1 drop QHS OU ; Start 02/28/19 at 21:00 Ceftriaxone Sodium (Rocephin) 1 gm Q24H IVP ; Start 02/28/19 at 17:00 Active Scripts Active Reported Lumigan (Bimatoprost) 2.5 Ml Drops 1 Drop EACHEYE QHS Carvedilol (Carvedilol) 12.5 Mg Tablet 1 Tab PO BID Timolol Maleate 10 Ml Drops 1 Drop EACHEYE DAILYWBKFT Zanaflex (Tizanidine Hcl) 4 Mg Capsule 0.5 Tab PO QHS Milk Of Magnesia (Magnesium Hydroxide) 400 Mg/5 Ml Oral.susp Unknown Dose PO Acetaminophen 325 Mg Tablet 325 Mg PO Vitamin D-3 (Cholecalciferol (Vitamin D3)) 2,000 Unit Capsule 2,000 Unit PO Calcium (Calcium Carbonate) 500 Mg Tablet 500 Mg PO Fish Oil 1,000 Mg Softgel ([place]-3 Fatty Acids/Fish Oil) 1 Each Capsule 3 Each PO Aspir 81 (Aspirin) 81 Mg Tablet.dr 81 Tab PO DAILY Synthroid (Levothyroxine Sodium) 88 Mcg Tablet 88 Tab PO DAILY Losartan Potassium 100 Mg Tablet 100 Mg PO DAILY Atorvastatin Calcium 10 Mg Tablet 1 Tab PO DAILY Vitals/I & O Vital Sign - Last 24 Hours 02/27/19 02/27/19 02/27/19 02/27/19 16:20 16:48 17:18 17:48 Temp 101.8 101.8 Pulse 105 96 92 88 Resp 20 18 16 17 B/P (MAP) 148/66 (93) 128/60 (82) 125/60 (81) 123/57 (79) Pulse Ox 96 94 95 93 O2 Delivery Room Air Room Air Room Air Room Air 02/27/19 02/27/19 02/27/19 02/27/19 18:18 18:58 19:56 23:13 Temp 99.0 98.0 97.5 99.0 98.0 97.5 Pulse 82 80 71 Resp 16 18 20 B/P (MAP) 121/58 (79) 120/46 (70) 90/39 (56) Pulse Ox 94 97 94 O2 Delivery Room Air Room Air Room Air 02/28/19 02/28/19 02/28/19 02/28/19 03:34 07:00 09:14 09:15 Temp 100.7 98.4 100.7 98.4 Pulse 91 74 74 74 Resp 18 20 B/P (MAP) 145/57 (86) 114/50 (71) 114/50 114/50 Pulse Ox 96 96 O2 Delivery Room Air Room Air Intake and Output 02/27/19 02/27/19 02/28/19 15:00 23:00 07:00 Intake Total 300 ml 200 ml Output Total 1050 ml Balance 300 ml -850 ml NITZA BEASLEY MD Feb 28, 2019 11:06
--- NOTE | 2019-02-28 12:04 | CONS ---
DATE OF CONSULTATION: 02/28/2019 REFERRING PHYSICIAN: Dr. Kelsey. REASON FOR CONSULTATION: Sepsis. HISTORY OF PRESENT ILLNESS: This patient is an 88-year-old female who developed a gradual onset of right flank abdominal pain and nausea over a few days' duration. She says the pain was noticeable, but did not interfere with activities of daily living. She lost her appetite some. Denies vomiting or diarrhea. She drank a can of 7up to help settle her stomach down. She also noticed a bad urinary odor. She normally has some urinary urgency, but no more than usual. Denies frequency, dysuria or blood in urine. 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 Nye about 5 years ago and had them "burned." She reports subjective fevers as well as chills. On arrival to the ER, she had a temperature of 101.8. With bands 13% and a lactic acid level of 5.5. Urinalysis was positive for wbc's, too numerous to count leukocyte esterase, nitrite and bacteria. Urine culture is pending. She was given a one-time dose of ceftriaxone. Since admission, the patient says that she is feeling better. She is hoping to go home soon. She says she is no longer having any chills. She ate her breakfast. Denies recent antibiotics or hospitalizations. PAST MEDICAL HISTORY: Diabetes, bladder ulcers. PAST SURGICAL HISTORY: Urological procedure. SOCIAL HISTORY: The patient lives at home. She is a . No pets. Nonsmoker. She does not drink either. ALLERGIES: NITROFURANTOIN, SPIRONOLACTONE, HYDROCHLOROTHIAZIDE, AMLODIPINE AND ACETAZOLAMIDE. FAMILY HISTORY: Gallbladder disease, diabetes, cardiovascular disease, breast disease, asthma and angina. MEDICATIONS: One-time dose of ceftriaxone on 02/27. Other medications are available and have been reviewed on the JUL. REVIEW OF SYSTEMS: Per HPI, otherwise all other review of systems are negative. PHYSICAL EXAMINATION: VITAL SIGNS: Temperature is 98.4, blood pressure 114/50, heart rate 74, respiratory rate 20, pulse oximetry 96% on room air. GENERAL: The patient is propped up in bed, alert and smiling. HEENT: Pupils equally round. Oropharynx pink and moist. Dentures in place. NECK: Supple. LUNGS: Clear to auscultation. CARDIAC: S1, S2. ABDOMEN: Soft and nontender with bowel sounds present. EXTREMITIES: No gross edema or cyanosis. SKIN: Warm to touch. No signs or rash. NEUROLOGIC: Alert and oriented x 3. LABORATORY DATA: Today's WBC 3.7 from 7.3 on admission, hemoglobin 9.8, platelets 152,000, segs 81%, bands 13%. Sodium 143, potassium 4.2, creatinine 1.2 from 1.5, BUN 15, glucose 132. Lactic acid 1.3 from 5.5, total bilirubin 0.4, AST 31, ALT 25, albumin 3.0. Urinalysis and culture per HPI. No imaging. Blood cultures from 02/27, pending. IMPRESSION: 1. Urinary tract infection present on admission, 02/27. 2. Leukopenia. 3. Fever and chills. 4. Lactic acidosis. 5. Acute kidney injury. PLAN: Continue the ceftriaxone. Awaiting culture results. Maintain hydration. Thank you, Dr. Kelsey, for asking us to participate in this patient's care. Should you have further questions or concerns, please call. CAMPBELL HOLLEY MD DR: MARÍA/huy JOB#: [id number] / [id number] ANY
--- NOTE | 2019-02-28 13:44 | EKG ---
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
--- NOTE | 2019-02-28 14:08 | CONS ---
DATE OF CONSULTATION: REQUESTING PHYSICIAN: Dr. Varner. REASON FOR CONSULTATION: Renal failure. HISTORY OF PRESENT ILLNESS: This is a delightful 88-year-old female with longstanding history of diabetes mellitus since "1970s." She denies history of diabetic retinopathy, but does have glaucoma. She also is followed for hypertension. The patient is currently admitted with abdominal discomfort, fever, chills and nausea. She was subsequently found to have urinary tract infection and is being treated for the same. Due to increased level of azotemia, a Nephrology evaluation has been requested. On presentation, the patient's creatinine was 1.5, GFR 32.9 mL per minute currently is 1.2, GFR 42.6 mL per minute. Urinalysis is noted for pyuria and bacteriuria. There is 30 mg percent protein with urine specific gravity of 1.015. PAST MEDICAL HISTORY: Diabetes mellitus type 2, glaucoma, hypertension, hyperlipidemia "bladder ultrasound." ALLERGIES: ACETAZOLAMIDE, AMLODIPINE, HYDROCHLOROTHIAZIDE, AND NITROFURANTOIN. MEDICATIONS: Spironolactone. FAMILY HISTORY: Noncontributory. SOCIAL HISTORY: The patient resides independently. REVIEW OF SYSTEMS: No headache, sinus problem, nasal drainage, epistaxis, change in vision or hearing. No difficulty swallowing. No fever, chills, cough, sputum, or hemoptysis. No chest pain, shortness of breath, PND, orthopnea, dyspnea on exertion. No further abdominal pain. No further nausea. No vomiting, diarrhea, seizures or malignancies. She denies history of renal disease. Denies history of diabetic retinopathy. There is no history of nephrolithiasis or gross hematuria. No NSAID use. PHYSICAL EXAMINATION: GENERAL APPEARANCE: The patient awake, conversant, appropriate. HEENT: Clear. NECK: No increased JVD. No thyromegaly, mass or adenopathy. LUNGS: Clear. CARDIAC: Without S3 or rub. ABDOMEN: Soft, nontender, no bruits. EXTREMITIES: Without edema. NEUROLOGIC: Nonfocal, nonlocalized. PSYCHIATRIC: Good attention to detail, appropriate affect. LABORATORY DATA: Hemoglobin 9.8, hematocrit 29.9, white count 3.7. Sodium 143, potassium 4.2, chloride 110, CO2 of 25, BUN 15, creatinine 1.2, GFR 42.6. Urinalysis pyuria, bacteriuria 30 mg percent proteinuria. Urine specific gravity 1.015. IMPRESSION: 1. Acute renal failure that is occurring in the setting of pyelonephritis and dehydration. May have an underlying chronic kidney disease as well. 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 2. Urinary tract infection/pyelonephritis. 3. Proteinuria. RECOMMENDATIONS: 1. IV fluid administration and follow renal function. 2. Antibiotics for urinary tract infection, pending culture results. 3. Renal ultrasound. 4. We will follow with you. ANASTACIO SPEARS MD DR: JEREMY/huy JOB#: [id number] / [id number]
[2019-02-28 15:00] VITALS: BP 129/60
[2019-02-28] MEDS: cefTRIAXone IV Push 1 GM VIAL. IVP SCH (16:47)
[2019-02-28 19:30] VITALS: BP 163/53
[2019-02-28] MEDS: tiZANidine 4 MG TABLET. PO SCH (20:47)
[2019-02-28] MEDS: ATORVASTATIN CALCIUM 10 MG TABLET. PO SCH (20:47)
[2019-02-28] MEDS: LATANOPROST 0.005% OPHTH SOLUTION 2.5ML BOTTLE. OU SCH (20:48)
[2019-02-28] MEDS: LACTOBACILLUS RHAMNOSUS GG 1 CAPSULE. PO SCH (20:48)
[2019-02-28 23:25] VITALS: BP 158/60
--- NOTE | 2019-02-28 23:40 | RAD ---
Complete Abdominal Ultrasound: Clinical History: Sepsis acute renal failure chronic renal disease Technique: Sonographic examination of the abdomen was performed and multiple static images were obtained. Findings: The majority of the liver is visualized and appears homogeneous. The common bile duct appears normal measures 6 mm in diameter. The gallbladder appears normal. The pancreas is not well visualized due to overlying bowel gas but appears within normal limits. The right kidney is echogenic and measures 9 cm in length. The left kidney is echogenic and measures 8 cm in length. The spleen is mildly enlarged measuring 11 cm in length. Visualized portions of the abdominal aorta and IVC appear normal. Impression: 1. Echogenic kidneys suggest medical renal disease. 2. Mild splenomegaly. 3. No evidence of gallbladder disease. Electronically signed by: Garfield Yeh III, MD (02/28/2019 11:37 PM) [facility]
[2019-03-01 03:10] VITALS: BP 119/58
[2019-03-01 05:00] LABS: BASO % 1 % (0-3); EOS # 0.1 x10^3/uL (0.0-0.7); EOS % 2 % (0-3); HEMATOCRIT 29.3 % (36.0-47.0); HEMOGLOBIN 9.7 g/dL (12.0-15.5); LYMPH % 26 % (24-48); MEAN CORPUSCULAR HEMOGLOBIN 29 pg (25-35); MEAN CORPUSCULAR HGB CONC 33 g/dL (31-37); MEAN CORPUSCULAR VOLUME 89 fL (79-100); MONO # 0.5 x10^3/uL (0.0-1.1); MONO % 14 % (0-9); NEUT # 2.2 x10^3/uL (1.8-7.7); NEUT % 58 % (31-73); PLATELET COUNT 153 x10^3/uL (140-400); RED BLOOD COUNT 3.31 x10^6/uL (3.50-5.40); RED CELL DISTRIBUTION WIDTH 16.3 % (11.5-14.5); WHITE BLOOD COUNT 3.9 x10^3/uL (4.0-11.0)
[2019-03-01 05:16] LABS: ALBUMIN 3.1 g/dL (3.4-5.0); ALBUMIN/GLOBULIN RATIO 0.9 (1.0-1.7); CALCIUM 8.8 mg/dL (8.5-10.1); CREATININE 1.1 mg/dL (0.6-1.0); GFR 47.1; POTASSIUM 4.2 mmol/L (3.5-5.1); TOTAL BILIRUBIN 0.3 mg/dL (0.2-1.0); TOTAL PROTEIN 6.6 g/dL (6.4-8.2)
[2019-03-01] MEDS: LEVOTHYROXINE 88 MCG TABLET PO SCH (05:44)
[2019-03-01 07:00] VITALS: BP 127/54
--- NOTE | 2019-03-01 08:20 | PDOC ---
Infectious Disease Note Subjective Subjective Doing well. Eating No F/C/S/N/V/D/SOA rash ROS ROS o/w neg Vital Sign Vital Signs Vital Signs Date Time Temp Pulse Resp B/P (MAP) Pulse Ox O2 Delivery O2 Flow Rate FiO2 03/01/19 07:00 98.7 74 18 127/54 (78) 96 Room Air 98.7 Physical Exam PHYSICAL EXAM GENERAL: The patient is propped up in bed, alert and smiling- eating eating on side of bed HEENT: Pupils equally round. Oropharynx pink and moist. Dentures in place. NECK: Supple. LUNGS: Clear to auscultation. CARDIAC: S1, S2. ABDOMEN: Soft and nontender with bowel sounds present. EXTREMITIES: No gross edema or cyanosis. SKIN: Warm to touch. No signs or rash. NEUROLOGIC: Alert and oriented x 3. Labs Lab Laboratory Tests Test 03/01/19 04:25 White Blood Count 3.9 x10^3/uL (4.0-11.0) Red Blood Count 3.31 x10^6/uL (3.50-5.40) Hemoglobin 9.7 g/dL (12.0-15.5) Hematocrit 29.3 % (36.0-47.0) Mean Corpuscular Volume 89 fL (79-100) Mean Corpuscular Hemoglobin 29 pg (25-35) Mean Corpuscular Hemoglobin Concent 33 g/dL (31-37) Red Cell Distribution Width 16.3 % (11.5-14.5) Platelet Count 153 x10^3/uL (140-400) Neutrophils (%) (Auto) 58 % (31-73) Lymphocytes (%) (Auto) 26 % (24-48) Monocytes (%) (Auto) 14 % (0-9) Eosinophils (%) (Auto) 2 % (0-3) Basophils (%) (Auto) 1 % (0-3) Neutrophils # (Auto) 2.2 x10^3/uL (1.8-7.7) Lymphocytes # (Auto) 1.0 x10^3/uL (1.0-4.8) Monocytes # (Auto) 0.5 x10^3/uL (0.0-1.1) Eosinophils # (Auto) 0.1 x10^3/uL (0.0-0.7) Basophils # (Auto) 0.0 x10^3/uL (0.0-0.2) Sodium Level 143 mmol/L (136-145) Potassium Level 4.2 mmol/L (3.5-5.1) Chloride Level 108 mmol/L (98-107) Carbon Dioxide Level 25 mmol/L (21-32) Anion Gap 10 (6-14) Blood Urea Nitrogen 9 mg/dL (7-20) Creatinine 1.1 mg/dL (0.6-1.0) Estimated GFR (Cockcroft-Gault) 47.1 BUN/Creatinine Ratio 8 (6-20) Glucose Level 123 mg/dL (70-99) Calcium Level 8.8 mg/dL (8.5-10.1) Total Bilirubin 0.3 mg/dL (0.2-1.0) Aspartate Amino Transf (AST/SGOT) 22 U/L (15-37) Alanine Aminotransferase (ALT/SGPT) 19 U/L (14-59) Alkaline Phosphatase 63 U/L (46-116) Total Protein 6.6 g/dL (6.4-8.2) Albumin 3.1 g/dL (3.4-5.0) Albumin/Globulin Ratio 0.9 (1.0-1.7) Micro Microbiology 02/27/19 Blood Culture - Preliminary, Resulted NO GROWTH AFTER 1 DAY Objective Assessment UTI, POA 02/27 -d/w micro this am and no cult results. U/S neg for stone or renal issues Leukopenia - some better Fever and chills - better Lactic acidosis - improving CAIN -better Plan Plan of Care Continue Rocephin 02/27 f/u cultures Maintain hydration D/w nursing MORIAH THOMAS MD Mar 01, 2019 08:20
[2019-03-01] MEDS: ASPIRIN ENTERIC COATED 81 MG TABLET.DR. PO SCH (08:58)
[2019-03-01] MEDS: CALCIUM CARBONATE 500 MG TABLET PO SCH (08:58)
[2019-03-01] MEDS: LACTOBACILLUS RHAMNOSUS GG 1 CAPSULE. PO SCH ×2 (08:58→21:40)
[2019-03-01] MEDS: CARVEDILOL 12.5 MG TABLET. PO SCH ×2 (08:58→16:26)
[2019-03-01] MEDS: LOSARTAN POTASSIUM 50 MG TABLET. PO SCH (08:59)
[2019-03-01] MEDS: TIMOLOL 0.5% OPHTH SOLUTION 5ML BOTTLE. OU SCH (09:00)
--- NOTE | 2019-03-01 10:44 | PDOC ---
PROGRESS NOTES Chief Complaint Chief Complaint ASSESSMENT AND PLAN: Sepsis with urinary tract infection. hx tia acute vasomotor nephropathy with acute renal failure leukopenia sec to sepsis anemia lactic acidosis - likely sepsis related admitted. blood cultures urine culture IV antibiotics, IV fluids sepsis protocol. Continue home meds, DVT prophylaxis. Full code. Consult ID. retic fe panel abd patricia nephrology consult 38 min pt exam, chart review, > 50% of time spent with exam, chart review, pt care coordination History of Present Illness History of Present Illness Ms Puri is an 88 yo F w/ PMHxdiabetes mellitus type 2, glaucoma, hypertension, hyperlipidemia admitted with abdominal discomfort, fever, chills and nausea. She was subsequently found to have urinary tract infection and is being treated for the same. Due to increased level of azotemia, a Nephrology evaluation has been requested as well as ID consultation. She feels somewhat better today. Still with nausea and abdominal pain, but feels she can tolerate it. Vitals Vitals Vital Signs Date Time Temp Pulse Resp B/P (MAP) Pulse Ox O2 Delivery O2 Flow Rate FiO2 03/01/19 08:59 74 127/54 03/01/19 08:00 Room Air 03/01/19 07:00 98.7 18 96 98.7 Physical Exam Physical Exam GENERAL: The patient is propped up in bed, alert and smiling- eating eating on side of bed HEENT: Pupils equally round. Oropharynx pink and moist. Dentures in place. NECK: Supple. LUNGS: Clear to auscultation. CARDIAC: S1, S2. ABDOMEN: Soft and nontender with bowel sounds present. EXTREMITIES: No gross edema or cyanosis. SKIN: Warm to touch. No signs or rash. NEUROLOGIC: Alert and oriented x 3. General: Alert, Oriented X3, Cooperative, No acute distress Heart: Regular rate Lungs: Clear Abdomen: Normal bowel sounds, Soft Extremities: No clubbing, No cyanosis Skin: No significant lesion Labs LABS Laboratory Tests Test 03/01/19 04:25 White Blood Count 3.9 x10^3/uL (4.0-11.0) Red Blood Count 3.31 x10^6/uL (3.50-5.40) Hemoglobin 9.7 g/dL (12.0-15.5) Hematocrit 29.3 % (36.0-47.0) Mean Corpuscular Volume 89 fL (79-100) Mean Corpuscular Hemoglobin 29 pg (25-35) Mean Corpuscular Hemoglobin Concent 33 g/dL (31-37) Red Cell Distribution Width 16.3 % (11.5-14.5) Platelet Count 153 x10^3/uL (140-400) Neutrophils (%) (Auto) 58 % (31-73) Lymphocytes (%) (Auto) 26 % (24-48) Monocytes (%) (Auto) 14 % (0-9) Eosinophils (%) (Auto) 2 % (0-3) Basophils (%) (Auto) 1 % (0-3) Neutrophils # (Auto) 2.2 x10^3/uL (1.8-7.7) Lymphocytes # (Auto) 1.0 x10^3/uL (1.0-4.8) Monocytes # (Auto) 0.5 x10^3/uL (0.0-1.1) Eosinophils # (Auto) 0.1 x10^3/uL (0.0-0.7) Basophils # (Auto) 0.0 x10^3/uL (0.0-0.2) Sodium Level 143 mmol/L (136-145) Potassium Level 4.2 mmol/L (3.5-5.1) Chloride Level 108 mmol/L (98-107) Carbon Dioxide Level 25 mmol/L (21-32) Anion Gap 10 (6-14) Blood Urea Nitrogen 9 mg/dL (7-20) Creatinine 1.1 mg/dL (0.6-1.0) Estimated GFR (Cockcroft-Gault) 47.1 BUN/Creatinine Ratio 8 (6-20) Glucose Level 123 mg/dL (70-99) Calcium Level 8.8 mg/dL (8.5-10.1) Total Bilirubin 0.3 mg/dL (0.2-1.0) Aspartate Amino Transf (AST/SGOT) 22 U/L (15-37) Alanine Aminotransferase (ALT/SGPT) 19 U/L (14-59) Alkaline Phosphatase 63 U/L (46-116) Total Protein 6.6 g/dL (6.4-8.2) Albumin 3.1 g/dL (3.4-5.0) Albumin/Globulin Ratio 0.9 (1.0-1.7) Assessment and Plan Assessmemt and Plan Problems Medical Problems: (1) Abdominal pain Status: Acute (2) Fever Status: Acute Comment Review of Relevant I have reviewed the following items gustavo (where applicable) has been applied. Labs Laboratory Tests Test 02/27/19 16:15 02/27/19 16:40 02/27/19 20:10 02/28/19 01:00 Urine Collection Type Unknown Urine Color Yellow Urine Clarity Turbid Urine pH 7.5 Urine Specific [employer] 1.015 Urine Protein 30 mg/dL (NEG-TRACE) Urine Glucose (UA) 250 mg/dL (NEG) Urine Ketones (Stick) Negative mg/dL (NEG) Urine Blood Moderate (NEG) Urine Nitrite Positive (NEG) Urine Bilirubin Negative (NEG) Urine Urobilinogen Dipstick 0.2 mg/dL (0.2 mg/dL) Urine Leukocyte Esterase Large (NEG) Urine RBC Field obscured /HPF (0-2) Urine WBC Tntc /HPF (0-4) Urine Bacteria Many /HPF (0-FEW) White Blood Count 7.3 x10^3/uL (4.0-11.0) 3.7 x10^3/uL (4.0-11.0) Red Blood Count 3.71 x10^6/uL (3.50-5.40) 3.32 x10^6/uL (3.50-5.70) Hemoglobin 10.9 g/dL (12.0-15.5) 9.8 g/dL (12.0-15.5) Hematocrit 33.1 % (36.0-47.0) 29.9 % (36.0-47.0) Mean Corpuscular Volume 89 fL (79-100) 89 fL (79-100) Mean Corpuscular Hemoglobin 29 pg (25-35) 29 pg (25-35) Mean Corpuscular Hemoglobin Concent 33 g/dL (31-37) 33 g/dL (31-37) Red Cell Distribution Width 15.7 % (11.5-14.5) 16.3 % (11.5-14.5) Platelet Count 194 x10^3/uL (140-400) 152 x10^3/uL (140-400) Neutrophils (%) (Auto) 93 % (31-73) 81 % (31-73) Lymphocytes (%) (Auto) 3 % (24-48) 11 % (24-48) Monocytes (%) (Auto) 4 % (0-9) 7 % (0-9) Eosinophils (%) (Auto) 0 % (0-3) 0 % (0-3) Basophils (%) (Auto) 0 % (0-3) 1 % (0-3) Neutrophils # (Auto) 6.7 x10^3/uL (1.8-7.7) 3.0 x10^3/uL (1.8-7.7) Lymphocytes # (Auto) 0.2 x10^3/uL (1.0-4.8) 0.4 x10^3/uL (1.0-4.8) Monocytes # (Auto) 0.3 x10^3/uL (0.0-1.1) 0.3 x10^3/uL (0.0-1.1) Eosinophils # (Auto) 0.0 x10^3/uL (0.0-0.7) 0.0 x10^3/uL (0.0-0.7) Basophils # (Auto) 0.0 x10^3/uL (0.0-0.2) 0.0 x10^3/uL (0.0-0.2) Segmented Neutrophils % 81 % (35-66) Band Neutrophils % 13 % (0-9) Lymphocytes % 3 % (24-48) Monocytes % 2 % (0-10) Basophils % 1 % (0-3) Platelet Estimate Adequate (ADEQUATE) Sodium Level 137 mmol/L (136-145) 143 mmol/L (136-145) Potassium Level 3.9 mmol/L (3.5-5.1) 4.2 mmol/L (3.5-5.1) Chloride Level 101 mmol/L (98-107) 110 mmol/L (98-107) Carbon Dioxide Level 21 mmol/L (21-32) 25 mmol/L (21-32) Anion Gap 15 (6-14) 8 (6-14) Blood Urea Nitrogen 18 mg/dL (7-20) 15 mg/dL (7-20) Creatinine 1.5 mg/dL (0.6-1.0) 1.2 mg/dL (0.6-1.0) Estimated GFR (Cockcroft-Gault) 32.9 42.6 BUN/Creatinine Ratio 12 (6-20) 13 (6-20) Glucose Level 213 mg/dL (70-99) 132 mg/dL (70-99) Lactic Acid Level 5.5 mmol/L (0.4-2.0) 2.9 mmol/L (0.4-2.0) 1.3 mmol/L (0.4-2.0) Calcium Level 9.0 mg/dL (8.5-10.1) 8.3 mg/dL (8.5-10.1) Total Bilirubin 0.5 mg/dL (0.2-1.0) 0.4 mg/dL (0.2-1.0) Aspartate Amino Transf (AST/SGOT) 27 U/L (15-37) 31 U/L (15-37) Alanine Aminotransferase (ALT/SGPT) 22 U/L (14-59) 25 U/L (14-59) Alkaline Phosphatase 77 U/L (46-116) 66 U/L (46-116) Total Protein 7.6 g/dL (6.4-8.2) 6.6 g/dL (6.4-8.2) Albumin 3.7 g/dL (3.4-5.0) 3.0 g/dL (3.4-5.0) Albumin/Globulin Ratio 0.9 (1.0-1.7) 0.8 (1.0-1.7) Absolute Reticulocyte Count 0.029 x10^6/uL (0.020-0.120) Percent Reticulocyte Count 0.9 % (0.5-2.3) Immature Reticulocyte Fraction 0.33 (0.20-0.60) Iron Level 14 ug/dL (50-170) Total Iron Binding Capacity 302 ug/dL (250-450) Iron Saturation 5 % (15-34) Test 03/01/19 04:25 White Blood Count 3.9 x10^3/uL (4.0-11.0) Red Blood Count 3.31 x10^6/uL (3.50-5.40) Hemoglobin 9.7 g/dL (12.0-15.5) Hematocrit 29.3 % (36.0-47.0) Mean Corpuscular Volume 89 fL (79-100) Mean Corpuscular Hemoglobin 29 pg (25-35) Mean Corpuscular Hemoglobin Concent 33 g/dL (31-37) Red Cell Distribution Width 16.3 % (11.5-14.5) Platelet Count 153 x10^3/uL (140-400) Neutrophils (%) (Auto) 58 % (31-73) Lymphocytes (%) (Auto) 26 % (24-48) Monocytes (%) (Auto) 14 % (0-9) Eosinophils (%) (Auto) 2 % (0-3) Basophils (%) (Auto) 1 % (0-3) Neutrophils # (Auto) 2.2 x10^3/uL (1.8-7.7) Lymphocytes # (Auto) 1.0 x10^3/uL (1.0-4.8) Monocytes # (Auto) 0.5 x10^3/uL (0.0-1.1) Eosinophils # (Auto) 0.1 x10^3/uL (0.0-0.7) Basophils # (Auto) 0.0 x10^3/uL (0.0-0.2) Sodium Level 143 mmol/L (136-145) Potassium Level 4.2 mmol/L (3.5-5.1) Chloride Level 108 mmol/L (98-107) Carbon Dioxide Level 25 mmol/L (21-32) Anion Gap 10 (6-14) Blood Urea Nitrogen 9 mg/dL (7-20) Creatinine 1.1 mg/dL (0.6-1.0) Estimated GFR (Cockcroft-Gault) 47.1 BUN/Creatinine Ratio 8 (6-20) Glucose Level 123 mg/dL (70-99) Calcium Level 8.8 mg/dL (8.5-10.1) Total Bilirubin 0.3 mg/dL (0.2-1.0) Aspartate Amino Transf (AST/SGOT) 22 U/L (15-37) Alanine Aminotransferase (ALT/SGPT) 19 U/L (14-59) Alkaline Phosphatase 63 U/L (46-116) Total Protein 6.6 g/dL (6.4-8.2) Albumin 3.1 g/dL (3.4-5.0) Albumin/Globulin Ratio 0.9 (1.0-1.7) Laboratory Tests Test 03/01/19 04:25 White Blood Count 3.9 x10^3/uL (4.0-11.0) Red Blood Count 3.31 x10^6/uL (3.50-5.40) Hemoglobin 9.7 g/dL (12.0-15.5) Hematocrit 29.3 % (36.0-47.0) Mean Corpuscular Volume 89 fL (79-100) Mean Corpuscular Hemoglobin 29 pg (25-35) Mean Corpuscular Hemoglobin Concent 33 g/dL (31-37) Red Cell Distribution Width 16.3 % (11.5-14.5) Platelet Count 153 x10^3/uL (140-400) Neutrophils (%) (Auto) 58 % (31-73) Lymphocytes (%) (Auto) 26 % (24-48) Monocytes (%) (Auto) 14 % (0-9) Eosinophils (%) (Auto) 2 % (0-3) Basophils (%) (Auto) 1 % (0-3) Neutrophils # (Auto) 2.2 x10^3/uL (1.8-7.7) Lymphocytes # (Auto) 1.0 x10^3/uL (1.0-4.8) Monocytes # (Auto) 0.5 x10^3/uL (0.0-1.1) Eosinophils # (Auto) 0.1 x10^3/uL (0.0-0.7) Basophils # (Auto) 0.0 x10^3/uL (0.0-0.2) Sodium Level 143 mmol/L (136-145) Potassium Level 4.2 mmol/L (3.5-5.1) Chloride Level 108 mmol/L (98-107) Carbon Dioxide Level 25 mmol/L (21-32) Anion Gap 10 (6-14) Blood Urea Nitrogen 9 mg/dL (7-20) Creatinine 1.1 mg/dL (0.6-1.0) Estimated GFR (Cockcroft-Gault) 47.1 BUN/Creatinine Ratio 8 (6-20) Glucose Level 123 mg/dL (70-99) Calcium Level 8.8 mg/dL (8.5-10.1) Total Bilirubin 0.3 mg/dL (0.2-1.0) Aspartate Amino Transf (AST/SGOT) 22 U/L (15-37) Alanine Aminotransferase (ALT/SGPT) 19 U/L (14-59) Alkaline Phosphatase 63 U/L (46-116) Total Protein 6.6 g/dL (6.4-8.2) Albumin 3.1 g/dL (3.4-5.0) Albumin/Globulin Ratio 0.9 (1.0-1.7) Microbiology 02/27/19 Blood Culture - Preliminary, Resulted NO GROWTH AFTER 1 DAY Medications Current Medications Acetaminophen (Tylenol) 1,000 mg 1X ONCE PO Last administered on 02/27/19at 16:45; Start 02/27/19 at 16:45; Stop 02/27/19 at 16:46; Status DC Ceftriaxone Sodium (Rocephin) 1 gm 1X ONCE IVP Last administered on 02/27/19at 17:08; Start 02/27/19 at 17:15; Stop 02/27/19 at 17:16; Status DC Sodium Chloride 1,000 ml @ 1,000 mls/hr 1X ONCE IV Last administered on 02/27/19at 17:09; Start 02/27/19 at 17:15; Stop 02/27/19 at 18:14; Status DC Sodium Chloride 1,000 ml @ 1,620 mls/hr Q38M IV ; Start 02/27/19 at 18:03; Stop 02/27/19 at 18:51; Status DC Ondansetron HCl (Zofran) 4 mg PRN Q8HRS PRN IV NAUSEA/VOMITING; Start 02/27/19 at 18:15; Stop 02/28/19 at 18:14; Status DC Acetaminophen (Tylenol) 650 mg PRN Q4HRS PRN PO FEVER Last administered on 02/28/19at 03:37; Start 02/27/19 at 18:15; Stop 02/28/19 at 18:14; Status DC Sodium Chloride 1,000 ml @ 1,000 mls/hr 1X ONCE IV Last administered on 02/27/19at 19:00; Start 02/27/19 at 19:00; Stop 02/27/19 at 19:59; Status DC Acetaminophen (Tylenol) 325 mg PRN Q6HRS PRN PO MILD PAIN / TEMP; Start 02/27/19 at 20:45 Aspirin (Ecotrin) 81 mg DAILY PO Last administered on 03/01/19 08:58; Start 02/28/19 at 09:00 Atorvastatin Calcium (Lipitor) 10 mg QHS PO Last administered on 02/28/19 20:47; Start 02/27/19 at 21:00 Calcium Carbonate/ Glycine (Oscal) 500 mg DAILY PO Last administered on 03/01/19 08:58; Start 02/28/19 at 09:00 Carvedilol (Coreg) 12.5 mg BIDWMEALS PO Last administered on 03/01/19 08:58; Start 02/28/19 at 08:00 Levothyroxine Sodium (Synthroid) 88 mcg DAILY06 PO Last administered on 03/01/19 05:44; Start 02/28/19 at 06:00 Magnesium Hydroxide (Milk Of Magnesia) 400 mg PRN DAILY PO ; Start 02/27/19 at 20:45 Timolol Maleate (Timoptic 0.5% [facility]) 1 drop DAILYWBKFT OU Last administered on 03/01/19 09:00; Start 02/28/19 at 08:00 Losartan Potassium (Cozaar) 100 mg DAILY PO Last administered on 03/01/19 08:59; Start 02/28/19 at 09:00 Tizanidine HCl (Zanaflex) 2 mg QHS PO Last administered on 02/28/19 20:47; Start 02/27/19 at 21:00 Latanoprost (Xalatan) 1 drop QHS OU Last administered on 02/28/19 20:48; Start 02/28/19 at 21:00 Ceftriaxone Sodium (Rocephin) 1 gm Q24H IVP Last administered on 02/28/19 16:47; Start 02/28/19 at 17:00 Lactobacillus Rhamnosus (Culturelle) 1 cap BID PO Last administered on 03/01/19 08:58; Start 02/28/19 at 21:00 Active Scripts Active Reported Lumigan (Bimatoprost) 2.5 Ml Drops 1 Drop EACHEYE QHS Carvedilol (Carvedilol) 12.5 Mg Tablet 1 Tab PO BID Timolol Maleate 10 Ml Drops 1 Drop EACHEYE DAILYWBKFT Zanaflex (Tizanidine Hcl) 4 Mg Capsule 0.5 Tab PO QHS Milk Of Magnesia (Magnesium Hydroxide) 400 Mg/5 Ml Oral.susp Unknown Dose PO Acetaminophen 325 Mg Tablet 325 Mg PO Vitamin D-3 (Cholecalciferol (Vitamin D3)) 2,000 Unit Capsule 2,000 Unit PO Calcium (Calcium Carbonate) 500 Mg Tablet 500 Mg PO Fish Oil 1,000 Mg Softgel (Lotus-3 Fatty Acids/Fish Oil) 1 Each Capsule 3 Each PO Aspir 81 (Aspirin) 81 Mg Tablet.dr 81 Tab PO DAILY Synthroid (Levothyroxine Sodium) 88 Mcg Tablet 88 Tab PO DAILY Losartan Potassium 100 Mg Tablet 100 Mg PO DAILY Atorvastatin Calcium 10 Mg Tablet 1 Tab PO DAILY Vitals/I & O Vital Sign - Last 24 Hours 02/28/19 02/28/19 02/28/19 02/28/19 11:00 15:00 16:47 19:30 Temp 98.2 98.8 98.7 98.2 98.8 98.7 Pulse 80 81 82 79 Resp 20 20 18 B/P (MAP) 101/44 (63) 129/60 (83) 163/77 163/53 (89) Pulse Ox 98 96 97 O2 Delivery Room Air Room Air Room Air 02/28/19 02/28/19 03/01/19 03/01/19 19:50 23:25 03:10 07:00 Temp 98.0 98.3 98.7 98.0 98.3 98.7 Pulse 82 77 74 Resp 18 18 18 B/P (MAP) 158/60 (92) 119/58 (78) 127/54 (78) Pulse Ox 97 94 96 O2 Delivery Room Air Room Air Room Air Room Air 03/01/19 03/01/19 03/01/19 08:00 08:58 08:59 Pulse 74 74 B/P (MAP) 127/54 127/54 O2 Delivery Room Air Intake and Output 0 02/28/19 02/28/19 03/01/19 15:00 23:00 07:00 Intake Total 200 ml 300 ml 200 ml Output Total 250 ml Balance -50 ml 300 ml 200 ml ELLY KOEHLER MD Mar 01, 2019 10:44
[2019-03-01 11:05] VITALS: BP 138/64
--- NOTE | 2019-03-01 12:11 | NUR ---
SS following for discharge planning. SS reviewed pt chart. Pt is from home with spouse and is currently on room air. SS will continue to follow for discharge planning.
--- NOTE | 2019-03-01 14:13 | PDOC ---
SUBJECTIVE ROS Stable OBJECTIVE Vital Signs Vital Signs Date Time Temp Pulse Resp B/P (MAP) Pulse Ox O2 Delivery O2 Flow Rate FiO2 03/01/19 11:05 98.6 73 16 138/64 (88) 98 Room Air 98.6 I & 0 Intake and Output 03/01/19 06:59 Intake Total 700 ml Output Total 250 ml Balance 450 ml Intake Oral 700 ml Output Urine Total 250 ml # Voids 5 PHYSICAL EXAM Physical Exam GENERAL: NAD HEENT: OM moist NECK: Supple. LUNGS: Clear to auscultation. CARDIAC: S1, S2. ABDOMEN: Soft EXTREMITIES: No gross edema or cyanosis. SKIN: Warm to touch. No signs or rash. NEUROLOGIC: Alert and oriented x 3. DIAGNOSIS/ASSESSMENT Assessment & Plan CAIN- improving renal function 2/2 dehydration Supportive care, Monitor, avoid Nephrotoxins UTI- On Abx per ID Leukopenia - stable COMMENT/RELEVANT DATA Meds Current Medications Medications (Trade) Dose Ordered Sig/Calvin Start Time Stop Time Status Last Admin Dose Admin Acetaminophen (Tylenol) 325 mg PRN Q6HRS PRN 02/27/19 20:45 Aspirin (Ecotrin) 81 mg DAILY 02/28/19 09:00 03/01/19 08:58 81 MG Atorvastatin Calcium (Lipitor) 10 mg QHS 02/27/19 21:00 02/28/19 20:47 10 MG Calcium Carbonate/ Glycine (Oscal) 500 mg DAILY 02/28/19 09:00 03/01/19 08:58 500 MG Carvedilol (Coreg) 12.5 mg BIDWMEALS 02/28/19 08:00 03/01/19 08:58 12.5 MG Ceftriaxone Sodium (Rocephin) 1 gm Q24H 02/28/19 17:00 02/28/19 16:47 1 GM Lactobacillus Rhamnosus (Culturelle) 1 cap BID 02/28/19 21:00 03/01/19 08:58 1 CAP Latanoprost (Xalatan) 1 drop QHS 02/28/19 21:00 02/28/19 20:48 1 DROP Levothyroxine Sodium (Synthroid) 88 mcg DAILY06 02/28/19 06:00 03/01/19 05:44 88 MCG Losartan Potassium (Cozaar) 100 mg DAILY 02/28/19 09:00 03/01/19 08:59 100 MG Magnesium Hydroxide (Milk Of Magnesia) 400 mg PRN DAILY 02/27/19 20:45 Ondansetron HCl (Zofran) 4 mg PRN Q8HRS PRN 02/27/19 18:15 02/28/19 18:14 DC Sodium Chloride 1,000 ml @ 1,000 mls/hr 1X ONCE 02/27/19 19:00 02/27/19 19:59 DC 02/27/19 19:00 1,000 MLS/HR Timolol Maleate (Timoptic 0.5% [facility]) 1 drop DAILYWBKFT 02/28/19 08:00 03/01/19 09:00 1 DROP Tizanidine HCl (Zanaflex) 2 mg QHS 02/27/19 21:00 02/28/19 20:47 2 MG Lab Laboratory Tests Test 03/01/19 04:25 White Blood Count 3.9 x10^3/uL (4.0-11.0) Red Blood Count 3.31 x10^6/uL (3.50-5.40) Hemoglobin 9.7 g/dL (12.0-15.5) Hematocrit 29.3 % (36.0-47.0) Mean Corpuscular Volume 89 fL (79-100) Mean Corpuscular Hemoglobin 29 pg (25-35) Mean Corpuscular Hemoglobin Concent 33 g/dL (31-37) Red Cell Distribution Width 16.3 % (11.5-14.5) Platelet Count 153 x10^3/uL (140-400) Neutrophils (%) (Auto) 58 % (31-73) Lymphocytes (%) (Auto) 26 % (24-48) Monocytes (%) (Auto) 14 % (0-9) Eosinophils (%) (Auto) 2 % (0-3) Basophils (%) (Auto) 1 % (0-3) Neutrophils # (Auto) 2.2 x10^3/uL (1.8-7.7) Lymphocytes # (Auto) 1.0 x10^3/uL (1.0-4.8) Monocytes # (Auto) 0.5 x10^3/uL (0.0-1.1) Eosinophils # (Auto) 0.1 x10^3/uL (0.0-0.7) Basophils # (Auto) 0.0 x10^3/uL (0.0-0.2) Sodium Level 143 mmol/L (136-145) Potassium Level 4.2 mmol/L (3.5-5.1) Chloride Level 108 mmol/L (98-107) Carbon Dioxide Level 25 mmol/L (21-32) Anion Gap 10 (6-14) Blood Urea Nitrogen 9 mg/dL (7-20) Creatinine 1.1 mg/dL (0.6-1.0) Estimated GFR (Cockcroft-Gault) 47.1 BUN/Creatinine Ratio 8 (6-20) Glucose Level 123 mg/dL (70-99) Calcium Level 8.8 mg/dL (8.5-10.1) Total Bilirubin 0.3 mg/dL (0.2-1.0) Aspartate Amino Transf (AST/SGOT) 22 U/L (15-37) Alanine Aminotransferase (ALT/SGPT) 19 U/L (14-59) Alkaline Phosphatase 63 U/L (46-116) Total Protein 6.6 g/dL (6.4-8.2) Albumin 3.1 g/dL (3.4-5.0) Albumin/Globulin Ratio 0.9 (1.0-1.7) Results All relevant outside records, renal labs, imaging studies, telemetry/EKG's were reviewed. FABIO DURBIN MD Mar 01, 2019 14:13
[2019-03-01 14:58] VITALS: BP 130/58
[2019-03-01] MEDS: cefTRIAXone IV Push 1 GM VIAL. IVP SCH (16:24)
[2019-03-01 19:10] VITALS: BP 143/59
[2019-03-01] MEDS: tiZANidine 4 MG TABLET. PO SCH (21:40)
[2019-03-01] MEDS: ATORVASTATIN CALCIUM 10 MG TABLET. PO SCH (21:40)
[2019-03-01] MEDS: LATANOPROST 0.005% OPHTH SOLUTION 2.5ML BOTTLE. OU SCH (21:41)
[2019-03-01 23:05] VITALS: BP 136/57
[2019-03-02 03:30] VITALS: BP 155/74
[2019-03-02] MEDS: LEVOTHYROXINE 88 MCG TABLET PO SCH (05:33)
[2019-03-02 07:00] VITALS: BP 188/87
--- NOTE | 2019-03-02 07:30 | PDOC ---
Infectious Disease Note Subjective Subjective Doing well. Eating No F/C/S/N/V/D/SOA rash ROS ROS o/w neg Vital Sign Vital Signs Vital Signs Date Time Temp Pulse Resp B/P (MAP) Pulse Ox O2 Delivery O2 Flow Rate FiO2 03/02/19 03:30 98.1 73 18 155/74 (101) 96 Room Air 98.1 Physical Exam PHYSICAL EXAM GENERAL: The patient is propped up in bed, alert and smiling- HEENT: Pupils equally round. Oropharynx pink and moist. Dentures in place. NECK: Supple. LUNGS: Clear to auscultation. CARDIAC: S1, S2. ABDOMEN: Soft and nontender with bowel sounds present. EXTREMITIES: No gross edema or cyanosis. SKIN: Warm to touch. No signs or rash. NEUROLOGIC: Alert and oriented x 3. Labs Micro Microbiology 02/27/19 Blood Culture - Preliminary, Resulted NO GROWTH AFTER 1 DAY Objective Assessment UTI, POA 02/27 -d/w micro this am and no cult results as just received cult. U/S neg for stone or renal issues Leukopenia - some better Fever and chills - better Lactic acidosis - improving CAIN -better Plan Plan of Care Dose Rocephin 02/27 now and home on Cefdinir for 3 days to start 03/03 F/u with primary ok D/w nursing MORIAH THOMAS MD Mar 02, 2019 07:30
[2019-03-02] MEDS ORDERED: cefTRIAXone IV Push 1 GM VIAL. IVP ONE (08:15)
[2019-03-02] MEDS: CALCIUM CARBONATE 500 MG TABLET PO SCH (08:20)
[2019-03-02] MEDS: ASPIRIN ENTERIC COATED 81 MG TABLET.DR. PO SCH (08:21)
[2019-03-02] MEDS: LACTOBACILLUS RHAMNOSUS GG 1 CAPSULE. PO SCH (08:21)
[2019-03-02] MEDS: CARVEDILOL 12.5 MG TABLET. PO SCH (08:21)
[2019-03-02] MEDS: LOSARTAN POTASSIUM 50 MG TABLET. PO SCH (08:22)
[2019-03-02] MEDS: TIMOLOL 0.5% OPHTH SOLUTION 5ML BOTTLE. OU SCH (08:22)
--- NOTE | 2019-03-02 08:26 | PDOC ---
PROGRESS NOTES Chief Complaint Chief Complaint ASSESSMENT AND PLAN: Sepsis with urinary tract infection. hx tia acute vasomotor nephropathy with acute renal failure leukopenia sec to sepsis anemia lactic acidosis - likely sepsis related admitted. 38 min pt exam, chart review, > 50% of time spent with exam, chart review, pt care coordination History of Present Illness History of Present Illness Ms Puri is an 88 yo F w/ PMHxdiabetes mellitus type 2, glaucoma, hypertension, hyperlipidemia admitted with abdominal discomfort, fever, chills and nausea. She was subsequently found to have urinary tract infection and is being treated for the same. Due to increased level of azotemia, a Nephrology evaluation has been requested as well as ID consultation. Renal ultrasound shows medical renal disease. She feels somewhat better today. No nausea or abdominal pain, she wishes to go home Vitals Vitals Vital Signs Date Time Temp Pulse Resp B/P (MAP) Pulse Ox O2 Delivery O2 Flow Rate FiO2 03/02/19 08:22 65 188/87 03/02/19 07:00 98.9 18 97 Room Air 98.9 Physical Exam Physical Exam GENERAL: The patient is propped up in bed, alert and smiling- HEENT: Pupils equally round. Oropharynx pink and moist. Dentures in place. NECK: Supple. LUNGS: Clear to auscultation. CARDIAC: S1, S2. ABDOMEN: Soft and nontender with bowel sounds present. EXTREMITIES: No gross edema or cyanosis. SKIN: Warm to touch. No signs or rash. NEUROLOGIC: Alert and oriented x 3. General: Alert, Oriented X3, Cooperative, No acute distress Heart: Regular rate Lungs: Clear Abdomen: Normal bowel sounds, Soft Extremities: No clubbing, No cyanosis Skin: No significant lesion Assessment and Plan Assessmemt and Plan Problems Medical Problems: (1) Abdominal pain Status: Acute (2) Fever Status: Acute Comment Review of Relevant I have reviewed the following items gustavo (where applicable) has been applied. Labs Laboratory Tests Test 03/01/19 04:25 White Blood Count 3.9 x10^3/uL (4.0-11.0) Red Blood Count 3.31 x10^6/uL (3.50-5.40) Hemoglobin 9.7 g/dL (12.0-15.5) Hematocrit 29.3 % (36.0-47.0) Mean Corpuscular Volume 89 fL (79-100) Mean Corpuscular Hemoglobin 29 pg (25-35) Mean Corpuscular Hemoglobin Concent 33 g/dL (31-37) Red Cell Distribution Width 16.3 % (11.5-14.5) Platelet Count 153 x10^3/uL (140-400) Neutrophils (%) (Auto) 58 % (31-73) Lymphocytes (%) (Auto) 26 % (24-48) Monocytes (%) (Auto) 14 % (0-9) Eosinophils (%) (Auto) 2 % (0-3) Basophils (%) (Auto) 1 % (0-3) Neutrophils # (Auto) 2.2 x10^3/uL (1.8-7.7) Lymphocytes # (Auto) 1.0 x10^3/uL (1.0-4.8) Monocytes # (Auto) 0.5 x10^3/uL (0.0-1.1) Eosinophils # (Auto) 0.1 x10^3/uL (0.0-0.7) Basophils # (Auto) 0.0 x10^3/uL (0.0-0.2) Sodium Level 143 mmol/L (136-145) Potassium Level 4.2 mmol/L (3.5-5.1) Chloride Level 108 mmol/L (98-107) Carbon Dioxide Level 25 mmol/L (21-32) Anion Gap 10 (6-14) Blood Urea Nitrogen 9 mg/dL (7-20) Creatinine 1.1 mg/dL (0.6-1.0) Estimated GFR (Cockcroft-Gault) 47.1 BUN/Creatinine Ratio 8 (6-20) Glucose Level 123 mg/dL (70-99) Calcium Level 8.8 mg/dL (8.5-10.1) Total Bilirubin 0.3 mg/dL (0.2-1.0) Aspartate Amino Transf (AST/SGOT) 22 U/L (15-37) Alanine Aminotransferase (ALT/SGPT) 19 U/L (14-59) Alkaline Phosphatase 63 U/L (46-116) Total Protein 6.6 g/dL (6.4-8.2) Albumin 3.1 g/dL (3.4-5.0) Albumin/Globulin Ratio 0.9 (1.0-1.7) Microbiology 02/27/19 Blood Culture - Preliminary, Resulted NO GROWTH AFTER 2 DAYS Medications Current Medications Acetaminophen (Tylenol) 1,000 mg 1X ONCE PO Last administered on 02/27/19at 16:45; Start 02/27/19 at 16:45; Stop 02/27/19 at 16:46; Status DC Ceftriaxone Sodium (Rocephin) 1 gm 1X ONCE IVP Last administered on 02/27/19at 17:08; Start 02/27/19 at 17:15; Stop 02/27/19 at 17:16; Status DC Sodium Chloride 1,000 ml @ 1,000 mls/hr 1X ONCE IV Last administered on 02/27/19at 17:09; Start 02/27/19 at 17:15; Stop 02/27/19 at 18:14; Status DC Sodium Chloride 1,000 ml @ 1,620 mls/hr Q38M IV ; Start 02/27/19 at 18:03; Stop 02/27/19 at 18:51; Status DC Ondansetron HCl (Zofran) 4 mg PRN Q8HRS PRN IV NAUSEA/VOMITING; Start 02/27/19 at 18:15; Stop 02/28/19 at 18:14; Status DC Acetaminophen (Tylenol) 650 mg PRN Q4HRS PRN PO FEVER Last administered on 02/28/19at 03:37; Start 02/27/19 at 18:15; Stop 02/28/19 at 18:14; Status DC Sodium Chloride 1,000 ml @ 1,000 mls/hr 1X ONCE IV Last administered on 02/27/19at 19:00; Start 02/27/19 at 19:00; Stop 02/27/19 at 19:59; Status DC Acetaminophen (Tylenol) 325 mg PRN Q6HRS PRN PO MILD PAIN / TEMP; Start 02/27/19 at 20:45 Aspirin (Ecotrin) 81 mg DAILY PO Last administered on 03/02/19at 08:21; Start 02/28/19 at 09:00 Atorvastatin Calcium (Lipitor) 10 mg QHS PO Last administered on 03/01/19at 21:40; Start 02/27/19 at 21:00 Calcium Carbonate/ Glycine (Oscal) 500 mg DAILY PO Last administered on 03/02/19at 08:20; Start 02/28/19 at 09:00 Carvedilol (Coreg) 12.5 mg BIDWMEALS PO Last administered on 03/02/19 08:21; Start 02/28/19 at 08:00 Levothyroxine Sodium (Synthroid) 88 mcg DAILY06 PO Last administered on 03/02/19 05:33; Start 02/28/19 at 06:00 Magnesium Hydroxide (Milk Of Magnesia) 400 mg PRN DAILY PO ; Start 02/27/19 at 20:45 Timolol Maleate (Timoptic 0.5% Ophth) 1 drop DAILYWBKFT OU Last administered on 03/02/19 08:22; Start 02/28/19 at 08:00 Losartan Potassium (Cozaar) 100 mg DAILY PO Last administered on 03/02/19 08:22; Start 02/28/19 at 09:00 Tizanidine HCl (Zanaflex) 2 mg QHS PO Last administered on 03/01/19 21:40; Start 02/27/19 at 21:00 Latanoprost (Xalatan) 1 drop QHS OU Last administered on 03/01/19 21:41; Start 02/28/19 at 21:00 Ceftriaxone Sodium (Rocephin) 1 gm Q24H IVP Last administered on 03/01/19 16:24; Start 02/28/19 at 17:00; Stop 03/02/19 at 08:16; Status DC Lactobacillus Rhamnosus (Culturelle) 1 cap BID PO Last administered on 03/02/19 08:21; Start 02/28/19 at 21:00 Ceftriaxone Sodium (Rocephin) 1 gm 1X ONCE IVP ; Start 03/02/19 at 08:15; Stop 03/02/19 at 08:18; Status DC Active Scripts Active Reported Lumigan (Bimatoprost) 2.5 Ml Drops 1 Drop EACHEYE QHS Carvedilol (Carvedilol) 12.5 Mg Tablet 1 Tab PO BID Timolol Maleate 10 Ml Drops 1 Drop EACHEYE DAILYWBKFT Zanaflex (Tizanidine Hcl) 4 Mg Capsule 0.5 Tab PO QHS Milk Of Magnesia (Magnesium Hydroxide) 400 Mg/5 Ml Oral.susp Unknown Dose PO Acetaminophen 325 Mg Tablet 325 Mg PO Vitamin D-3 (Cholecalciferol (Vitamin D3)) 2,000 Unit Capsule 2,000 Unit PO Calcium (Calcium Carbonate) 500 Mg Tablet 500 Mg PO Fish Oil 1,000 Mg Softgel ([place]-3 Fatty Acids/Fish Oil) 1 Each Capsule 3 Each PO Aspir 81 (Aspirin) 81 Mg Tablet. 81 Tab PO DAILY Synthroid (Levothyroxine Sodium) 88 Mcg Tablet 88 Tab PO DAILY Losartan Potassium 100 Mg Tablet 100 Mg PO DAILY Atorvastatin Calcium 10 Mg Tablet 1 Tab PO DAILY Vitals/I & O Vital Sign - Last 24 Hours 03/01/19 03/01/19 03/01/19 03/01/19 08:58 08:59 11:05 14:58 Temp 98.6 98.7 98.6 98.7 Pulse 74 74 73 77 Resp 16 16 B/P (MAP) 127/54 127/54 138/64 (88) 130/58 (82) Pulse Ox 98 98 O2 Delivery Room Air Room Air 03/01/19 03/01/19 03/01/19 03/01/19 16:26 19:10 20:00 23:05 Temp 98.3 97.9 98.3 97.9 Pulse 77 74 78 Resp 18 18 B/P (MAP) 130/58 143/59 (87) 136/57 (83) Pulse Ox 95 98 O2 Delivery Room Air Room Air Room Air 03/02/19 03/02/19 03/02/19 03/02/19 03:30 07:00 08:21 08:22 Temp 98.1 98.9 98.1 98.9 Pulse 73 65 65 65 Resp 18 18 B/P (MAP) 155/74 (101) 188/87 (120) 188/87 188/87 Pulse Ox 96 97 O2 Delivery Room Air Room Air Intake and Output 03/01/19 03/01/19 03/02/19 15:00 23:00 07:00 Intake Total 480 ml 240 ml 200 ml Balance 480 ml 240 ml 200 ml ELLY KOEHLER MD Mar 02, 2019 08:26
[2019-03-02] MEDS ORDERED: CEFDINIR 300 MG CAPSULE PO SCH (09:00)
--- NOTE | 2019-03-02 10:32 | PDOC ---
SUBJECTIVE ROS Stable OBJECTIVE Vital Signs Vital Signs Date Time Temp Pulse Resp B/P (MAP) Pulse Ox O2 Delivery O2 Flow Rate FiO2 03/02/19 08:22 65 188/87 03/02/19 08:00 Room Air 03/02/19 07:00 98.9 18 97 98.9 I & 0 Intake and Output 03/02/19 07:00 Intake Total 920 ml Balance 920 ml Intake Oral 920 ml # Voids 3 PHYSICAL EXAM Physical Exam GENERAL: NAD HEENT: OM moist NECK: Supple. LUNGS: Clear to auscultation. CARDIAC: S1, S2. ABDOMEN: Soft EXTREMITIES: No gross edema or cyanosis. SKIN: Warm to touch. No signs or rash. NEUROLOGIC: Alert and oriented x 3. DIAGNOSIS/ASSESSMENT Assessment & Plan CAIN- improving renal function , No labs this am 2/2 dehydration Supportive care, Monitor, avoid Nephrotoxins UTI- On Abx per ID Leukopenia - stable Will sign off COMMENT/RELEVANT DATA Meds Current Medications Medications (Trade) Dose Ordered Sig/Calvin Start Time Stop Time Status Last Admin Dose Admin Acetaminophen (Tylenol) 325 mg PRN Q6HRS PRN 02/27/19 20:45 Aspirin (Ecotrin) 81 mg DAILY 02/28/19 09:00 03/02/19 08:21 81 MG Atorvastatin Calcium (Lipitor) 10 mg QHS 02/27/19 21:00 03/01/19 21:40 10 MG Calcium Carbonate/ Glycine (Oscal) 500 mg DAILY 02/28/19 09:00 03/02/19 08:20 500 MG Carvedilol (Coreg) 12.5 mg BIDWMEALS 02/28/19 08:00 03/02/19 08:21 12.5 MG Cefdinir (Omnicef) 300 mg BID 03/02/19 09:00 03/02/19 08:52 300 MG Ceftriaxone Sodium (Rocephin) 1 gm 1X ONCE 03/02/19 08:15 03/02/19 08:35 DC Lactobacillus Rhamnosus (Culturelle) 1 cap BID 02/28/19 21:00 03/02/19 08:21 1 CAP Latanoprost (Xalatan) 1 drop QHS 02/28/19 21:00 03/01/19 21:41 1 DROP Levothyroxine Sodium (Synthroid) 88 mcg DAILY06 02/28/19 06:00 03/02/19 05:33 88 MCG Losartan Potassium (Cozaar) 100 mg DAILY 02/28/19 09:00 03/02/19 08:22 100 MG Magnesium Hydroxide (Milk Of Magnesia) 400 mg PRN DAILY 02/27/19 20:45 Ondansetron HCl (Zofran) 4 mg PRN Q8HRS PRN 02/27/19 18:15 02/28/19 18:14 DC Sodium Chloride 1,000 ml @ 1,000 mls/hr 1X ONCE 02/27/19 19:00 02/27/19 19:59 DC 02/27/19 19:00 1,000 MLS/HR Timolol Maleate (Timoptic 0.5% [facility]) 1 drop DAILYWBKFT 02/28/19 08:00 03/02/19 08:22 1 DROP Tizanidine HCl (Zanaflex) 2 mg QHS 02/27/19 21:00 03/01/19 21:40 2 MG Results All relevant outside records, renal labs, imaging studies, telemetry/EKG's were reviewed. FABIO DURBIN MD Mar 02, 2019 10:32
[2019-03-02] MEDS ORDERED: CEFD300C PO (11:15)
[2019-03-02 11:16] VITALS: BP 140/68
--- NOTE | 2019-03-02 11:23 | PDOC3 ---
Discharge Summary Visit Information Date of Admission: Feb 27, 2019 Date of Discharge: Mar 02, 2019 Admitting Diagnosis: Abdominal pain, fever Final Diagnosis Problems Medical Problems: (1) Abdominal pain Status: Acute (2) Fever Status: Acute Brief Hospital Course Allergies Allergies Coded Allergies Type Severity Reaction Last Updated Verified acetazolamide Allergy Intermediate 02/28/19 Yes amlodipine Allergy Intermediate SWELLING 12/26/15 Yes hydrochlorothiazide Allergy Intermediate DIZZINESS 12/26/15 Yes nitrofurantoin Allergy Intermediate ANXIETY 12/26/15 Yes spironolactone Allergy Intermediate 02/28/19 Yes Vital Signs Vital Signs Date Time Temp Pulse Resp B/P (MAP) Pulse Ox O2 Delivery O2 Flow Rate FiO2 03/02/19 08:22 65 188/87 03/02/19 08:00 Room Air 03/02/19 07:00 98.9 18 97 98.9 Lab Results Laboratory Tests Test 03/01/19 04:25 White Blood Count 3.9 x10^3/uL (4.0-11.0) Red Blood Count 3.31 x10^6/uL (3.50-5.40) Hemoglobin 9.7 g/dL (12.0-15.5) Hematocrit 29.3 % (36.0-47.0) Mean Corpuscular Volume 89 fL (79-100) Mean Corpuscular Hemoglobin 29 pg (25-35) Mean Corpuscular Hemoglobin Concent 33 g/dL (31-37) Red Cell Distribution Width 16.3 % (11.5-14.5) Platelet Count 153 x10^3/uL (140-400) Neutrophils (%) (Auto) 58 % (31-73) Lymphocytes (%) (Auto) 26 % (24-48) Monocytes (%) (Auto) 14 % (0-9) Eosinophils (%) (Auto) 2 % (0-3) Basophils (%) (Auto) 1 % (0-3) Neutrophils # (Auto) 2.2 x10^3/uL (1.8-7.7) Lymphocytes # (Auto) 1.0 x10^3/uL (1.0-4.8) Monocytes # (Auto) 0.5 x10^3/uL (0.0-1.1) Eosinophils # (Auto) 0.1 x10^3/uL (0.0-0.7) Basophils # (Auto) 0.0 x10^3/uL (0.0-0.2) Sodium Level 143 mmol/L (136-145) Potassium Level 4.2 mmol/L (3.5-5.1) Chloride Level 108 mmol/L (98-107) Carbon Dioxide Level 25 mmol/L (21-32) Anion Gap 10 (6-14) Blood Urea Nitrogen 9 mg/dL (7-20) Creatinine 1.1 mg/dL (0.6-1.0) Estimated GFR (Cockcroft-Gault) 47.1 BUN/Creatinine Ratio 8 (6-20) Glucose Level 123 mg/dL (70-99) Calcium Level 8.8 mg/dL (8.5-10.1) Total Bilirubin 0.3 mg/dL (0.2-1.0) Aspartate Amino Transf (AST/SGOT) 22 U/L (15-37) Alanine Aminotransferase (ALT/SGPT) 19 U/L (14-59) Alkaline Phosphatase 63 U/L (46-116) Total Protein 6.6 g/dL (6.4-8.2) Albumin 3.1 g/dL (3.4-5.0) Albumin/Globulin Ratio 0.9 (1.0-1.7) Brief Hospital Course Ms Puri is an 88 yo F w/ PMHxdiabetes mellitus type 2, glaucoma, hypertension, hyperlipidemia admitted with abdominal discomfort, fever, chills and nausea. She was subsequently found to have urinary tract infection and is being treated for the same. Due to increased level of azotemia, a Nephrology evaluation has been requested as well as ID consultation. She feels somewhat better today. Still with nausea and abdominal pain, but feels she can tolerate it. She initially developed a gradual onset of right flank abdominal pain and nausea over a few days' duration. She says the pain was noticeable, but did not interfere with activities of daily living. She lost her appetite some. Denies vomiting or diarrhea. She drank a can of 7up to help settle her stomach down. She also noticed a bad urinary odor. She normally has some urinary urgency, but no more than usual. Denies frequency, dysuria or blood in urine. 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 Nye about 5 years ago and had them "burned." She reports subjective fevers as well as chills. On arrival to the ER, she had a temperature of 101.8. With bands 13% and a lactic acid level of 5.5. Urinalysis was positive for wbc's, too numerous to count leukocyte esterase, nitrite and bacteria. Urine culture is pending. She was given a one-time dose of ceftriaxone. Since admission, the patient says that she is feeling better. She is hoping to go home soon. She says she is no longer having any chills. She ate her breakfast. Denies recent antibiotics or hospitalizations. Changed to oral cefdinir tolerated well. ASSESSMENT AND PLAN: Sepsis with urinary tract infection. hx tia acute vasomotor nephropathy with acute renal failure leukopenia sec to sepsis anemia lactic acidosis - likely sepsis related 38 min pt exam, chart review, > 50% of time spent with exam, chart review, pt care coordination Discharge Information Condition at Discharge: Improved Follow Up: Weeks (1) Disposition/Orders: D/C to Home Scheduled Aspirin (Aspir 81) 81 Mg Tablet., 81 TAB PO DAILY, #30 Ref 5 (Reported) Entered as Reported by: LIZETTE BOWLING on 12/27/1525 Last Action: Continued on 02/27/192045 by Eric Sandoval Atorvastatin Calcium (Atorvastatin Calcium) 10 Mg Tablet, 1 TAB PO DAILY, #30 Ref 5 (Reported) Entered as Reported by: LIZETTE BOWLING on 12/27/1524 Last Action: Continued on 02/27/192045 by Eric Sandoval Bimatoprost (Lumigan) 2.5 Ml Drops, 1 DROP EACHEYE QHS, #7.5 Ref 3 (Reported) Entered as Reported by: ERIC DUKE on 11/26/171854 Last Action: Converted on 02/28/19634 by Eric Sandoval Carvedilol (Carvedilol ) 12.5 Mg Tablet, 1 TAB PO BID, #180 Ref 1 (Reported) Entered as Reported by: ERIC DUKE on 11/26/171854 Last Action: Continued on 02/27/192045 by Eric Sandoval Cefdinir (Cefdinir) 300 Mg Capsule, 300 MG PO BID for Infection for 3 Days, #6 Prescribed by: ELLY KOEHLER MD on 03/02/19 1115 Levothyroxine Sodium (Synthroid) 88 Mcg Tablet, 88 TAB PO DAILY, #30 Ref 5 (Reported) Entered as Reported by: LIZETTE BOWLING on 12/27/1525 Last Action: Continued on 02/27/192045 by Eric Sandoval Losartan Potassium (Losartan Potassium) 100 Mg Tablet, 100 MG PO DAILY, (Reported) Entered as Reported by: LIZETTE BOWLING on 12/27/1524 Last Action: Converted on 02/27/192045 by Eric Sandoval Timolol Maleate (Timolol Maleate) 10 Ml Drops, 1 DROP EACHEYE DAILYWBKFT, #5 Ref 5 (Reported) Entered as Reported by: LIZETTE BOWLING on 12/27/15210 Last Action: Continued on 02/27/192045 by Eric Sandoval Tizanidine Hcl (Zanaflex) 4 Mg Capsule, 0.5 TAB PO QHS, #30 (Reported) Entered as Reported by: LIZETTE BOWLING on 12/27/15206 Last Action: Converted on 02/27/192045 by Eric Sandoval Miscellaneous Medications Acetaminophen (Acetaminophen) 325 Mg Tablet, 325 MG PO, (Reported) Entered as Reported by: LIZETTE BOWLING on 12/27/15203 Last Action: Continued on 02/27/192045 by Eric Sandoval Calcium Carbonate (Calcium) 500 Mg Tablet, 500 MG PO, (Reported) Entered as Reported by: LIZETTE BOWLING on 12/27/15203 Last Action: Continued on 02/27/192045 by Eric Sandoval Cholecalciferol (Vitamin D3) (Vitamin D-3) 2,000 Unit Capsule, 2,000 UNIT PO, (Reported) Entered as Reported by: LIZETTE BOWLING on 12/27/15203 Magnesium Hydroxide (Milk Of Magnesia) 400 Mg/5 Ml Oral.susp, Unknown Dose PO, (Reported) Entered as Reported by: LIZETTE BOWLING on 12/27/15203 Last Action: Continued on 02/27/192045 by Eric Sandoval [place]-3 Fatty Acids/Fish Oil (Fish Oil 1,000 Mg Softgel) 1 Each Capsule, 3 EACH PO, (Reported) Entered as Reported by: LIZETTE BOWLING on 12/27/15 0204 Discontinued Medications Atropine Sulfate in 0.9% NaCl (Atropine 0.01%-Ns Eye Drops) 10 Ml Drops, 1 DROP RIGHTEYE BID, (Reported) Entered as Reported by: Ravi Meehan on 10/27/16 1016 Last Action: Discontinued on 02/28/19634 by Eric Sandoval Carboxymethylcellulos/Glycerin (Refresh Optive Eye Drops) 15 Ml Drops, 1 DROP EACHEYE QID, #30 Ref 6 (Reported) Entered as Reported by: ERIC DUKE on 11/26/171854 Last Action: Discontinued on 02/28/19634 by Eric Sandoval Carvedilol (Coreg ) 3.125 Mg Tablet, 1 TAB PO DAILY, #180 Ref 1 (Reported) Entered as Reported by: ABBI LOBO on 12/27/15 1028 Last Action: Discontinued on 02/27/192020 by Eric Sandoval Difluprednate (Durezol) 5 Ml Drops, 1 DROP RIGHTEYE QID, (Reported) Entered as Reported by: Ravi Meehan on 10/27/16 1016 Last Action: Discontinued on 02/28/19634 by Eric Sandoval Erythromycin Base (Erythromycin) 1 Gm Oint...g., 1 GM OP, (Reported) Entered as Reported by: ERIC DUKE on 11/26/171854 Last Action: Discontinued on 02/27/192020 by ELLY Spaulding MD Mar 02, 2019 11:22
--- NOTE | 2019-03-02 12:50 | NUR ---
Discharge Note: GAY FISCHER [address] [place] [address] Discharge instructions and discharge home medications reviewed with Patient and a copy given. All questions have been answered and understanding verbalized. The following instructions and handouts were given: Sepsis Discontinued IV line Patient discharged to home with self care via private vehicle
== END 2019-03-02 12:52 | disposition home or self-care (01) | DRG 871 ==
LOC: ER 15:48 → 2 SOUTH 18:08
PROVIDERS: ADMIT Internal Medicine; ATTEND Internal Medicine
DX: A41.9 Sepsis, unspecified organism (principal); N17.0 Acute kidney failure with tubular necrosis; N12 Tubulo-interstitial nephritis, not specified as acute or chronic; H40.9 Unspecified glaucoma; E78.00 Pure hypercholesterolemia, unspecified; E78.5 Hyperlipidemia, unspecified; D72.819 Decreased white blood cell count, unspecified; D64.9 Anemia, unspecified; E86.0 Dehydration; I10 Essential (primary) hypertension; E11.9 Type 2 diabetes mellitus without complications; Z88.8 Allergy status to other drugs, medicaments and biological substances; Z87.440 Personal history of urinary (tract) infections; Z82.49 Family history of ischemic heart disease and other diseases of the circulatory system; Z83.3 Family history of diabetes mellitus; Z82.5 Family history of asthma and other chronic lower respiratory diseases; Z86.73 Personal history of transient ischemic attack (TIA), and cerebral infarction without residual deficits
CPT/HCPCS: 36415; 76700; 80053; 81001; 83540; 83550; 83605; 85007; 85025; 85045; 87040; 87086; 93005; 96374; J0696; J7030; 99285-25; G0378

== ENCOUNTER 2019-12-09 00:15 | Emergency (ER) | payer MEDICARE, BC ==
[~2019-12-09] VITALS: Ht 149.9 cm; Wt 52.0 kg
[~2019-12-09 00:15] MED LIST changes: +CEFD300C PO; -LEVO88TA2 PO; +LEVO88TA70 PO
--- NOTE | 2019-12-09 00:49 | PHYS DOC ---
Past Medical History Past Medical History: Diabetes-Type II, Glaucoma, High Cholesterol, Hyper tension, Other Additional Past Medical Histor: GLAUCOMA; ulcers in bladder Past Surgical History: Other Additional Past Surgical Histo: glaucoma Smoking Status: Never Smoker Alcohol Use: None Drug Use: None General Adult EDM: Chief Complaint: PAIN ON URINATION HPI: HPI: Patient is a 89 year old female who presents with complaints of urinary frequency and urgency since Friday. Patient reports that she started having dysuria on Friday and then felt like it got better on Friday. However today Friday she says that the pain became unbearable. She denies low back pain, abdominal pain or vaginal discharge. Patient does report a lack of fever, nausea or vomiting, diarrhea, melena or hematochezia. Patient has had good p.o. intake. Patient does feel little thirsty. Otherwise she states she has been in her usual state of fair health. Review of Systems: Review of Systems: Constitutional: Denies fever or chills. [] Eyes: Denies change in visual acuity. [] HENT: Denies nasal congestion or sore throat. [] Respiratory: Denies cough or shortness of breath. [] Cardiovascular: Denies chest pain or edema. [] GI: Denies abdominal pain, nausea, vomiting, bloody stools or diarrhea. [] : See HPI [] Musculoskeletal: Denies back pain or joint pain. [] Integument: Denies rash. [] Neurologic: Denies headache, focal weakness or sensory changes. [] Endocrine: Denies polyuria or polydipsia. [] Lymphatic: Denies swollen glands. [] Psychiatric: Denies depression or anxiety. [] Heart Score: Risk Factors: Risk Factors: DM, Current or recent (<one month) smoker, HTN, HLP, family history of CAD, obesity. Risk Scores: Score 0 - 3: 2.5% MACE over next 6 weeks - Discharge Home Score 4 - 6: 20.3% MACE over next 6 weeks - Admit for Clinical Observation Score 7 - 10: 72.7% MACE over next 6 weeks - Early Invasive Strategies Allergies: Allergies: Allergies Coded Allergies Type Severity Reaction Last Updated Verified acetazolamide Allergy Intermediate 02/28/19 Yes amlodipine Allergy Intermediate SWELLING 12/26/15 Yes hydrochlorothiazide Allergy Intermediate DIZZINESS 12/26/15 Yes nitrofurantoin Allergy Intermediate ANXIETY 12/26/15 Yes spironolactone Allergy Intermediate 02/28/19 Yes Physical Exam: PE: Constitutional: Well developed, well nourished, no acute distress, non-toxic appearance. [] HENT: Normocephalic, atraumatic, bilateral external ears normal, oropharynx moist, no oral exudates, nose normal. [] Eyes: PERRLA, EOMI, conjunctiva normal, no discharge. [] Neck: Normal range of motion, no tenderness, supple, no stridor. [] Cardiovascular:Heart rate regular rhythm, grade 2/6 systolic murmur, no shift of PMI, pulses 2 of 2 dorsalis pedis bilaterally [] Lungs & Thorax: Bilateral breath sounds clear to auscultation [] Abdomen: Bowel sounds normal, soft, no tenderness, no masses, no pulsatile masses. [] Skin: Warm, dry, no erythema, no rash. [] Back: No tenderness, no CVA tenderness. [] Extremities: No tenderness, no cyanosis, no clubbing, ROM intact, no edema. [] EKG: EKG: [] Radiology/Procedures: Radiology/Procedures: [] Course & Med Decision Making: Course & Med Decision Making Pertinent Labs and Imaging studies reviewed. (See chart for details) 0158-the patient was seen and reexamined. Patient is done well throughout her hospitalization here. Patient has no sirs criteria and with a negative lactic acid I do not think she requires admission. Given her normal white count and hemodynamics stability will give her a gram of Rocephin here and sent her home with some Omnicef. I discussed with her reasons to return, treatment plan and need for follow-up. [] Yasmin Disclaimer: Yasmin Disclaimer: This electronic medical record was generated, in whole or in part, using a voice recognition dictation system. Departure Departure Impression: Primary Impression: Acute cystitis with hematuria Additional Impression: Dysuria Disposition: 01 HOME, SELF-CARE Condition: IMPROVED Referrals: ZAHRA ESPINOSA MD (PCP) Patient Instructions: Urinary Tract Infection Additional Instructions: Please follow-up with your PCP in the next 2 to 3 days, return to the emergency room should you develop a fever, no improvement within 24 hours, nausea or vomiting or worsening pain. Scripts Cefdinir (CEFDINIR) 300 Mg Capsule 1 CAP PO BID, #14 CAP Prov: JOHANA BYRD MD 12/09/19 Justicifation of Admission Dx: Justifications for Admission: Justification of Admission Dx: N/A JOHANA BYRD MD Dec 09, 2019 00:49
[2019-12-09 00:55] LABS: BILIRUBIN,URINE NEGATIVE (NEG); CLARITY,URINE CLEAR; COLOR,URINE YELLOW; NITRITE,URINE NEGATIVE (NEG); PH,URINE 5.5 (<5.0-8.0); PROTEIN,URINE NEGATIVE (NEG-TRACE); UROBILINOGEN,URINE 0.2 mg/dL (0.2 mg/dL)
[2019-12-09 01:00] LABS: SQUAMOUS EPITHELIAL CELL,UR FEW /LPF
[2019-12-09] MEDS ORDERED: PHENAZOPYRIDINE 200 MG TABLET. PO ONE (01:00)
[2019-12-09 01:01] LABS: BACTERIA,URINE FEW /HPF (0-FEW)
[2019-12-09 01:30] VITALS: BP 185/75
[2019-12-09] MEDS ORDERED: IV NORMAL SALINE 500ML BAG 500 ML IV ONE (01:30)
[2019-12-09 01:37] LABS: BASO % 1 % (0-3); EOS # 0.1 x10^3/uL (0.0-0.7); EOS % 2 % (0-3); HEMATOCRIT 35.7 % (36.0-47.0); LYMPH # 1.3 x10^3/uL (1.0-4.8); LYMPH % 22 % (24-48); MEAN CORPUSCULAR HEMOGLOBIN 31 pg (25-35); MEAN CORPUSCULAR HGB CONC 34 g/dL (31-37); MEAN CORPUSCULAR VOLUME 91 fL (79-100); MONO # 0.5 x10^3/uL (0.0-1.1); MONO % 9 % (0-9); NEUT % 67 % (31-73); PLATELET COUNT 233 x10^3/uL (140-400); RED BLOOD COUNT 3.91 x10^6/uL (3.50-5.40); RED CELL DISTRIBUTION WIDTH 15.7 % (11.5-14.5)
[2019-12-09 01:45] LABS: CALCIUM 9.4 mg/dL (8.5-10.1); CREATININE 1.2 mg/dL (0.6-1.0); GFR 42.5; POTASSIUM 3.5 mmol/L (3.5-5.1)
[2019-12-09 01:50] LABS: ALBUMIN 3.9 g/dL (3.4-5.0); ALBUMIN/GLOBULIN RATIO 1.1 (1.0-1.7); TOTAL BILIRUBIN 0.3 mg/dL (0.2-1.0); TOTAL PROTEIN 7.5 g/dL (6.4-8.2)
[2019-12-09] MEDS ORDERED: CEFD300C PO (01:57)
[2019-12-09] MEDS ORDERED: cefTRIAXone IV Push 1 GM VIAL. IVP ONE (02:15)
== END 2019-12-09 02:30 | disposition home or self-care (01) ==
LOC: ER 00:15
DX: N30.01 Acute cystitis with hematuria (principal); E11.39 Type 2 diabetes mellitus with other diabetic ophthalmic complication; H40.9 Unspecified glaucoma; E78.00 Pure hypercholesterolemia, unspecified; I10 Essential (primary) hypertension; Z88.8 Allergy status to other drugs, medicaments and biological substances
CPT/HCPCS: 36415; 80053; 81001; 83605; 85025; 87040; 87086; 96374; 99283; J0696; J7040

== ENCOUNTER 2020-07-06 01:08 | Emergency (ER) | payer MEDICARE, BC ==
[2020-07-06] MEDS ORDERED: PHENAZOPYRIDINE 200 MG TABLET. PO ONE (01:30)
[2020-07-06] MEDS ORDERED: CEPHALEXIN 250 MG CAPSULE. PO ONE (01:30)
[2020-07-06 09:24] LABS: BACTERIA,URINE 0 /HPF (0-FEW); BILIRUBIN,URINE NEGATIVE (NEG); CLARITY,URINE CLEAR; COLOR,URINE YELLOW; NITRITE,URINE NEGATIVE (NEG); PH,URINE 5.5 (<5.0-8.0); PROTEIN,URINE NEGATIVE (NEG-TRACE); RBC,URINE OCC /HPF (0-2); UROBILINOGEN,URINE 0.2 mg/dL (0.2 mg/dL)
== END 2020-07-06 02:00 | disposition home or self-care (01) ==
LOC: ER 01:08
DX: R30.0 Dysuria (principal); R10.30 Lower abdominal pain, unspecified; Z87.440 Personal history of urinary (tract) infections
CPT/HCPCS: 81001; 87086; 99283

== ENCOUNTER 2020-09-15 00:32 | Emergency (ER) | payer MEDICARE, BC ==
[~2020-09-15] VITALS: Ht 149.9 cm; Wt 53.2 kg
[2020-09-15 01:21] LABS: CLARITY,URINE CLEAR; COLOR,URINE ORANGE
[2020-09-15 01:32] LABS: BACTERIA,URINE 0 /HPF (0-FEW)
[2020-09-15 01:53] VITALS: BP 199/80
--- NOTE | 2020-09-15 02:23 | ED.ADGEN ---
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 Has had 1 day of dysuria. Patient also states she has vaginal pain with sitting and walking. Has a history of urinary tract infections before. Had some leftover Pyridium and has been taking the Pyridium without improvement. No other complaints. Review of Systems: Review of Systems: All other systems within normal limits except for as noted in the HPI Allergies: Allergies: Allergies Coded Allergies Type Severity Reaction Last Updated Verified acetazolamide Allergy Intermediate 02/28/19 Yes amlodipine Allergy Intermediate SWELLING 12/26/15 Yes hydrochlorothiazide Allergy Intermediate DIZZINESS 12/26/15 Yes nitrofurantoin Allergy Intermediate ANXIETY 12/26/15 Yes spironolactone Allergy Intermediate 02/28/19 Yes Physical Exam: PE: Constitutional: Well developed, well nourished, no acute distress, non-toxic appearance. [] HENT: Normocephalic, atraumatic, bilateral external ears normal, nose normal. [] Eyes: PERRLA, conjunctiva normal, no discharge. [] Neck: No rigidity, supple, no stridor. [] Cardiovascular: Regular rate and rhythm, brisk cap refill [] Lungs & Thorax: Non labored symmetric respirations, no tachypnea or respiratory distress [] Abdomen: Soft, nondistended. Skin: Warm, dry, no erythema, no rash. Mild erythema and severe dryness of labia minora, no lesions or discharge [] Back: Unremarkable Extremities: No deformities, range of motion grossly intact, no lower extremity edema [] Neurologic: Alert and oriented X 3, no focal deficits noted. [] Psychologic: Affect normal, judgement normal, mood normal. [] Current Patient Data: Labs: Laboratory Tests Test 09/15/20 00:39 Urine Collection Type Unknown Urine Color [place] Urine Clarity Clear Urine pH (<5.0-8.0) Urine Specific [place] 1.010 (1.000-1.030) Urine Protein mg/dL (NEG-TRACE) Urine Glucose (UA) mg/dL (NEG) Urine Ketones (Stick) mg/dL (NEG) Urine Blood (NEG) Urine Nitrite (NEG) Urine Bilirubin (NEG) Urine Urobilinogen Dipstick mg/dL (0.2 mg/dL) Urine Leukocyte Esterase (NEG) Urine RBC 1-2 /HPF (0-2) Urine WBC 1-4 /HPF (0-4) Urine Squamous Epithelial Cells Few /LPF Urine Bacteria 0 /HPF (0-FEW) Vital Signs: Vital Signs Date Time Temp Pulse Resp B/P (MAP) Pulse Ox O2 Delivery O2 Flow Rate FiO2 09/15/20 01:53 71 18 199/80 (119) 96 Room Air 09/15/20 00:45 98.2 98.2 EKG: EKG: [] Heart Score: C/O Chest Pain: No Risk Factors: Risk Factors: DM, Current or recent (<one month) smoker, HTN, HLP, family history of CAD, obesity. Risk Scores: Score 0 - 3: 2.5% MACE over next 6 weeks - Discharge Home Score 4 - 6: 20.3% MACE over next 6 weeks - Admit for Clinical Observation Score 7 - 10: 72.7% MACE over next 6 weeks - Early Invasive Strategies Radiology/Procedures: Radiology/Procedures: [] Course & Med Decision Making: Course & Med Decision Making Urine negative and symptoms more consistent with vaginal irritation. Discussed with patient most likely cause is dryness due to menopause. Discussed [id number] treatment and follow-up with primary care provider. Yasmin Disclaimer: Yasmin Disclaimer: This electronic medical record was generated, in whole or in part, using a voice recognition dictation system. Departure Departure Impression: Primary Impression: Vaginal pain Disposition: HOME / SELF CARE / HOMELESS Condition: STABLE Referrals: ZAHRA ESPINOSA MD (PCP) Additional Instructions: Use [id number] products such as Replens Moisturizer long-lasting vaginal moisturizer as instructed by package directions. HARRISON JOSÉ MD September 15, 2020 02:23
[2020-09-15] MEDS ORDERED: BENZ78AE5 TP (02:34)
== END 2020-09-15 02:35 | disposition home or self-care (01) ==
LOC: ER 00:32
DX: R10.2 Pelvic and perineal pain (principal); R30.0 Dysuria; E11.39 Type 2 diabetes mellitus with other diabetic ophthalmic complication; H40.9 Unspecified glaucoma; E78.00 Pure hypercholesterolemia, unspecified; I10 Essential (primary) hypertension; E03.9 Hypothyroidism, unspecified; Z88.1 Allergy status to other antibiotic agents; Z88.8 Allergy status to other drugs, medicaments and biological substances
CPT/HCPCS: 81001; 99283

== ENCOUNTER → 2021-09-17 | Emergency (ER) | payer MEDICARE, BC ==
[~2021-09-17] VITALS: Ht 149.9 cm; Wt 54.4 kg
[~2021-09-17] MED LIST changes: +BENZ78AE5 TP; +oxyCODONE/APAP 5/325 1 TAB TABLET ONE; +oxyCODONE/APAP 5/325 1 TAB TABLET PO ONE
[2021-09-17 21:45] VITALS: BP 230/104
[2021-09-18 00:47] LABS: BACTERIA,URINE MODERATE /HPF (0-FEW)
--- NOTE | 2021-09-18 13:53 | PHYS DOC ---
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 Patient reports similar symptoms with previous UTIs. Review of Systems: Review of Systems: Constitutional: Denies fever or chills. [] Eyes: Denies change in visual acuity. [] HENT: Denies nasal congestion or sore throat. [] Respiratory: Denies cough or shortness of breath. [] Cardiovascular: Denies chest pain or edema. [] GI: Denies abdominal pain, nausea, vomiting, bloody stools or diarrhea. [] : Reports dysuria, urgency, frequency. Musculoskeletal: Denies back pain or joint pain. [] Integument: Denies rash. [] Neurologic: Denies headache, focal weakness or sensory changes. [] Psychiatric: Denies depression or anxiety. [] Heart Score: C/O Chest Pain: N/A Risk Factors: Risk Factors: DM, Current or recent (<one month) smoker, HTN, HLP, family history of CAD, obesity. Risk Scores: Score 0 - 3: 2.5% MACE over next 6 weeks - Discharge Home Score 4 - 6: 20.3% MACE over next 6 weeks - Admit for Clinical Observation Score 7 - 10: 72.7% MACE over next 6 weeks - Early Invasive Strategies Current Medications: Current Medications Medications (Trade) Dose Ordered Sig/Calvin Start Time Stop Time Status Last Admin Dose Admin Oxycodone/ Acetaminophen (Percocet 5/325) 1 tab STK-MED ONCE 09/18/21 01:29 09/18/21 09:08 DC Allergies: Allergies: Allergies Coded Allergies Type Severity Reaction Last Updated Verified acetazolamide Allergy Intermediate 09/17/21 Yes amlodipine Allergy Intermediate SWELLING 09/17/21 Yes hydrochlorothiazide Allergy Intermediate DIZZINESS 09/17/21 Yes nitrofurantoin Allergy Intermediate ANXIETY 09/17/21 Yes spironolactone Allergy Intermediate 09/17/21 Yes Physical Exam: PE: Constitutional: Well developed, well nourished, no acute distress, non-toxic appearance. [] HENT: Normocephalic, atraumatic, bilateral external ears normal, oropharynx moist, no oral exudates, nose normal. [] Eyes: PERRLA, EOMI, conjunctiva normal, no discharge. [] Neck: Normal range of motion, no tenderness, supple, no stridor. [] Cardiovascular:Heart rate regular rhythm, no murmur [] Lungs & Thorax: Bilateral breath sounds clear to auscultation [] Abdomen: Bowel sounds normal, soft, no tenderness, no masses, no pulsatile masses. [] Skin: Warm, dry, no erythema, no rash. [] Back: No tenderness, no CVA tenderness. [] Extremities: No tenderness, no cyanosis, no clubbing, ROM intact, no edema. [] Neurologic: Alert and oriented X 3, normal motor function, normal sensory fu nction, no focal deficits noted. [] Psychologic: Affect normal, judgement normal, mood normal. [] Current Patient Data: Labs: Laboratory Tests Test 09/17/21 22:25 Urine Collection Type Unknown Urine Color (Auto) Light yellow Urine Turbidity Clear Urine pH (Auto) 5.5 (<5.0-8.0) Urine Specific [place] 1.010 (1.000-1.030) Urine Protein (Auto) Negative mg/dL (Negative) Urine Glucose (Auto)(UA) Negative mg/dL (Negative) Urine Ketones (Auto) Negative mg/dL (Negative) Urine Blood (Auto) Trace (Negative) Urine Nitrite Negative (Negative) Urine Bilirubin (Auto) Negative (Negative) Urine Urobilinogen (Auto) Normal mg/dL (Normal) Urine Leukocyte Esterase (Auto) Negative (Negative) Urine RBC 1-2 /HPF (0-2) Urine WBC 5-10 /HPF (0-4) Urine Squamous Epithelial Cells Many /LPF Urine Bacteria Moderate /HPF (0-FEW) Urine Mucus Marked /LPF Vital Signs: Vital Signs Date Time Temp Pulse Resp B/P (MAP) Pulse Ox O2 Delivery O2 Flow Rate FiO2 09/17/21 21:45 98.4 97 18 230/104 (146) 98 Room Air 98.4 EKG: EKG: [] Radiology/Procedures: Radiology/Procedures: [] Course & Med Decision Making: Course & Med Decision Making Pertinent Labs and Imaging studies reviewed. (See chart for details) Patient is in the ED with urinary symptoms. She was discharged during [facility] downtime. Dragmoses Disclaimer: Yasmin Disclaimer: This electronic medical record was generated, in whole or in part, using a voice recognition dictation system. Departure Departure Impression: Primary Impression: UTI (urinary tract infection) Disposition: HOME / SELF CARE / HOMELESS Condition: STABLE Referrals: ZAHRA ESPINOSA MD (PCP) HALEY JACOBO SURVEILLANCE SENSOR OPERATOR September 18, 2021 13:53
== END | disposition home or self-care (01) ==
LOC: ER 21:26
DX: N39.0 Urinary tract infection, site not specified (principal); E11.39 Type 2 diabetes mellitus with other diabetic ophthalmic complication; H42 Glaucoma in diseases classified elsewhere; E78.00 Pure hypercholesterolemia, unspecified; I10 Essential (primary) hypertension; E03.9 Hypothyroidism, unspecified; Z88.8 Allergy status to other drugs, medicaments and biological substances
CPT/HCPCS: 81001; 87086; 99283

== ENCOUNTER 2021-09-20 18:47 | Emergency (ER) | payer MEDICARE, BC ==
[~2021-09-20] VITALS: Ht 149.9 cm; Wt 53.3 kg
[~2021-09-20 18:47] MED LIST changes: -oxyCODONE/APAP 5/325 1 TAB TABLET ONE; -oxyCODONE/APAP 5/325 1 TAB TABLET PO ONE
[2021-09-20 19:30] VITALS: BP 214/101
[2021-09-20 20:33] LABS: BACTERIA,URINE 0 /HPF (0-FEW); RBC,URINE OCC /HPF (0-2)
[2021-09-20 20:56] LABS: BASO # 0.1 x10^3/uL (0.0-0.2); BASO % 1 % (0-3); EOS # 0.1 x10^3/uL (0.0-0.7); EOS % 2 % (0-3); HEMATOCRIT 41.9 % (36.0-47.0); HEMOGLOBIN 14.1 g/dL (12.0-15.5); LYMPH # 1.5 x10^3/uL (1.0-4.8); LYMPH % 21 % (24-48); MEAN CORPUSCULAR HEMOGLOBIN 32 pg (25-35); MEAN CORPUSCULAR HGB CONC 34 g/dL (31-37); MEAN CORPUSCULAR VOLUME 96 fL (79-100); MONO # 0.7 x10^3/uL (0.0-1.1); MONO % 10 % (0-9); NEUT # 4.5 x10^3/uL (1.8-7.7); NEUT % 66 % (31-73); PLATELET COUNT 264 x10^3/uL (140-400); RED BLOOD COUNT 4.37 x10^6/uL (3.50-5.40); RED CELL DISTRIBUTION WIDTH 13.6 % (11.5-14.5); WHITE BLOOD COUNT 6.8 x10^3/uL (4.0-11.0)
[2021-09-20 21:12] LABS: CALCIUM 9.8 mg/dL (8.5-10.1); CREATININE 1.2 mg/dL (0.6-1.0); GFR 42.3
[2021-09-20] MEDS ORDERED: CEFD300C PO (21:59)
--- NOTE | 2021-09-20 21:59 | PHYS DOC ---
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 Patient states she was here on the 09/15/2021 for the same symptoms, states she was started on complex regimen, diagnosed with a urinary tract infection and sent home. Patient reports her symptoms are not getting any better, patient states she still has burning at the urethra, patient states she has a history of ulcers in her bladder. Sees her urologist frequently. Patient denies chest pains, shortness of breath, abdominal pain, nausea, vomiting, or diarrhea. Patient reports she has tried Pyridium in the past, this medication does not help. Patient denies other physical complaints or physical concerns. Review of Systems: Review of Systems: 14 body systems of review of systems have been reviewed. See HPI for pertinent positives and negative responses, otherwise all other systems are negative, nonpertinent or noncontributory. Constitutional: Negative except as outlined in HPI above. Skin: Negative except as outlined in HPI above. Eyes: Negative except as outlined in HPI above. HENT: Negative except as outlined in HPI above. Respiratory: Negative except as outlined in HPI above. Cardiovascular: Negative except as outlined in HPI above. GI: Negative except as outlined in HPI above. : Negative except as outlined in HPI above. Musculoskeletal: Negative except as outlined in HPI above. Integument: Negative except as outlined in HPI above. Neurologic: Negative except as outlined in HPI above. Endocrine: Negative except as outlined in HPI above. Lymphatic: Negative except as outlined in HPI above. Psychiatric: Negative except as outlined in HPI above. Heart Score: C/O Chest Pain: No Risk Factors: Risk Factors: DM, Current or recent (<one month) smoker, HTN, HLP, family history of CAD, obesity. Risk Scores: Score 0 - 3: 2.5% MACE over next 6 weeks - Discharge Home Score 4 - 6: 20.3% MACE over next 6 weeks - Admit for Clinical Observation Score 7 - 10: 72.7% MACE over next 6 weeks - Early Invasive Strategies Allergies: Allergies: Allergies Coded Allergies Type Severity Reaction Last Updated Verified acetazolamide Allergy Intermediate 09/17/21 Yes amlodipine Allergy Intermediate SWELLING 09/17/21 Yes hydrochlorothiazide Allergy Intermediate DIZZINESS 09/17/21 Yes nitrofurantoin Allergy Intermediate ANXIETY 09/17/21 Yes spironolactone Allergy Intermediate 09/17/21 Yes Physical Exam: PE: Constitutional: Well developed, well nourished, no acute distress, non-toxic appearance. 89-year-old female in no apparent distress. HENT: Normocephalic, atraumatic. Eyes: Conjunctiva normal, no discharge. Neck: Normal range of motion. Cardiovascular: Distal cap refill less than 2 seconds, no cyanosis appreciated. Lungs & Thorax: Patient is in no respiratory distress, no adventitious lung sounds appreciated. Abdomen: Bowel sounds normal, soft, no tenderness, no masses, no pulsatile masses. No bruising or skin discoloration of the abdomen. Skin: Warm, dry, no erythema, no rash. Back: No tenderness, no CVA tenderness. Extremities: No tenderness, no cyanosis, no clubbing, ROM intact, no edema. Neurologic: Alert and oriented X 3, normal motor function, normal sensory function, no focal deficits noted. Psychologic: Affect normal, judgement normal, mood normal. : Vaginal examination to visualize urethra performed with female ED nurse at bedside for drywall application supervisor. There was no erythema or swelling or edema to the external urinary meatus. There is no rashes or lesions to the vaginal structures, no visualized vaginal discharge. Patient tolerated well. Current Patient Data: Labs: Laboratory Tests Test 09/20/21 19:48 09/20/21 20:49 Urine Collection Type Unknown Urine Color (Auto) Colorless Urine Turbidity Clear Urine pH (Auto) 5.5 Urine Specific [place] 1.010 Urine Protein (Auto) Negative mg/dL Urine Glucose (Auto)(UA) Negative mg/dL Urine Ketones (Auto) Negative mg/dL Urine Blood (Auto) Trace Urine Nitrite Negative Urine Bilirubin (Auto) Negative Urine Urobilinogen (Auto) Normal mg/dL Urine Leukocyte Esterase (Auto) Negative Urine RBC Occ /HPF Urine WBC 1-4 /HPF Urine Squamous Epithelial Cells Occ /LPF Urine Bacteria 0 /HPF White Blood Count 6.8 x10^3/uL Red Blood Count 4.37 x10^6/uL Hemoglobin 14.1 g/dL Hematocrit 41.9 % Mean Corpuscular Volume 96 fL Mean Corpuscular Hemoglobin 32 pg Mean Corpuscular Hemoglobin Concent 34 g/dL Red Cell Distribution Width 13.6 % Platelet Count 264 x10^3/uL Neutrophils (%) (Auto) 66 % Lymphocytes (%) (Auto) 21 % Monocytes (%) (Auto) 10 % Eosinophils (%) (Auto) 2 % Basophils (%) (Auto) 1 % Neutrophils # (Auto) 4.5 x10^3/uL Lymphocytes # (Auto) 1.5 x10^3/uL Monocytes # (Auto) 0.7 x10^3/uL Eosinophils # (Auto) 0.1 x10^3/uL Basophils # (Auto) 0.1 x10^3/uL Sodium Level 139 mmol/L Potassium Level 4.0 mmol/L Chloride Level 104 mmol/L Carbon Dioxide Level 26 mmol/L Anion Gap 9 Blood Urea Nitrogen 18 mg/dL Creatinine 1.2 mg/dL Estimated GFR (Cockcroft-Gault) 42.3 Glucose Level 186 mg/dL Calcium Level 9.8 mg/dL Laboratory Tests Test 09/20/21 19:48 09/20/21 20:49 Urine Collection Type Unknown Urine Color (Auto) Colorless Urine Turbidity Clear Urine pH (Auto) 5.5 (<5.0-8.0) Urine Specific [place] 1.010 (1.000-1.030) Urine Protein (Auto) Negative mg/dL (Negative) Urine Glucose (Auto)(UA) Negative mg/dL (Negative) Urine Ketones (Auto) Negative mg/dL (Negative) Urine Blood (Auto) Trace (Negative) Urine Nitrite Negative (Negative) Urine Bilirubin (Auto) Negative (Negative) Urine Urobilinogen (Auto) Normal mg/dL (Normal) Urine Leukocyte Esterase (Auto) Negative (Negative) Urine RBC Occ /HPF (0-2) Urine WBC 1-4 /HPF (0-4) Urine Squamous Epithelial Cells Occ /LPF Urine Bacteria 0 /HPF (0-FEW) White Blood Count 6.8 x10^3/uL (4.0-11.0) Red Blood Count 4.37 x10^6/uL (3.50-5.40) Hemoglobin 14.1 g/dL (12.0-15.5) Hematocrit 41.9 % (36.0-47.0) Mean Corpuscular Volume 96 fL (79-100) Mean Corpuscular Hemoglobin 32 pg (25-35) Mean Corpuscular Hemoglobin Concent 34 g/dL (31-37) Red Cell Distribution Width 13.6 % (11.5-14.5) Platelet Count 264 x10^3/uL (140-400) Neutrophils (%) (Auto) 66 % (31-73) Lymphocytes (%) (Auto) 21 % (24-48) L Monocytes (%) (Auto) 10 % (0-9) H Eosinophils (%) (Auto) 2 % (0-3) Basophils (%) (Auto) 1 % (0-3) Neutrophils # (Auto) 4.5 x10^3/uL (1.8-7.7) Lymphocytes # (Auto) 1.5 x10^3/uL (1.0-4.8) Monocytes # (Auto) 0.7 x10^3/uL (0.0-1.1) Eosinophils # (Auto) 0.1 x10^3/uL (0.0-0.7) Basophils # (Auto) 0.1 x10^3/uL (0.0-0.2) Sodium Level 139 mmol/L (136-145) Potassium Level 4.0 mmol/L (3.5-5.1) Chloride Level 104 mmol/L (98-107) Carbon Dioxide Level 26 mmol/L (21-32) Anion Gap 9 (6-14) Blood Urea Nitrogen 18 mg/dL (7-20) Creatinine 1.2 mg/dL (0.6-1.0) H Estimated GFR (Cockcroft-Gault) 42.3 Glucose Level 186 mg/dL (70-99) H Calcium Level 9.8 mg/dL (8.5-10.1) Laboratory Tests 09/20/21 20:49 Laboratory Tests 09/20/21 20:49 Vital Signs: Vital Signs Date Time Temp Pulse Resp B/P (MAP) Pulse Ox O2 Delivery O2 Flow Rate FiO2 09/20/21 19:30 98.1 95 18 214/101 (138) 96 Room Air 98.1 EKG: EKG: [] Radiology/Procedures: Radiology/Procedures: [] Course & Med Decision Making: Course & Med Decision Making Pertinent Labs and Imaging studies reviewed. (See chart for details) 89-year-old female, vital signs reviewed, presents emergency department concerning burning with urination. Physical examination consistent with urethritis, a visualization of the external meatus did not reveal concerning findings, the patient has been on Keflex for the past 4 days, the patient CBC an d BMP were within normal limits, discussed patient case and ED work-up with ED attending physician Dr. Moralez who recommends patient antibiotic change. The patient reports she has not been sexually active in over 20 years. This is unlikely a gonorrhea/chlamydia infectious process, there was no trichomonas in urine. 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 Considered Pyridium for urinary discomfort, however patient reports she has had this medicine in the past and that does not work. Will recommend Tylenol and or Motrin for ongoing urinary discomfort. Will start on cefdinir regimen, discussed findings with patient, antibiotic otilia nge, discontinue Keflex regimen, strict follow-up with urologist this week, call tomorrow for an appointment, patient gave verbal understanding of and is amenable to ED discharge planning. Discussed with the patient all findings and diagnostic testing as well as the need to follow-up with their primary care provider for further evaluation and treatment or return to the ED if any new or worsening symptoms. Strict return precautions were also discussed at length, the patient voiced understanding and agreement with the discharge planning. The patient was nontoxic in appearance, in no apparent distress, and hemodynamically stable at the time of disposition. Yasmin Disclaimer: Yasmin Disclaimer: This electronic medical record was generated, in whole or in part, using a voice recognition dictation system. Departure Departure Impression: Primary Impression: Urethritis Disposition: HOME / SELF CARE / HOMELESS Condition: GOOD Referrals: ZAHRA ESPINOSA MD (PCP) Patient Instructions: Urethritis, Adult Additional Instructions: You were seen today in the emergency department for pain on urination, you have been on an antibiotic for the past 4 days, as we discussed please stop taking the Keflex medicine, I am changing you to a new medication called cefdinir, please take as directed till complete. As we discussed, please call your urologist tomorrow to make an appointment related to your symptoms. You may take [id number] Tylenol or ibuprofen for ongoing discomfort with urination. Thank you for visiting our Emergency Department. It was a pleasure taking care of you today in the emergency department and we appreciate you trusting us with your care. If any additional problems come up don't hesitate to return to visit us. Please follow up with your primary care provider so they can plan additional care if needed and know about the problem that you had. If symptoms worsen come back to the Emergency Department. Any concerning symptoms that start such as chest pain, shortness of air, weakness or numbness on one side of the body, running high fevers or any other concerning symptoms return to the ER. Scripts Cefdinir (CEFDINIR) 300 Mg Capsule 2 CAP PO DAILY for UTI for 7 Days, #14 CAP 0 Refills Prov: ANASTACIO ROGERS APRN 09/20/21 ANASTACIO ROGERS APRN September 20, 2021 21:59
[2021-09-20] MEDS ORDERED: CEFDINIR 300 MG CAPSULE PO ONE (22:30)
[2021-09-20] MEDS ORDERED: IBUPROFEN 200 MG TABLET. PO ONE (22:30)
== END 2021-09-20 22:36 | disposition home or self-care (01) ==
LOC: ER 18:47
DX: N34.2 Other urethritis (principal); E11.39 Type 2 diabetes mellitus with other diabetic ophthalmic complication; H42 Glaucoma in diseases classified elsewhere; E78.00 Pure hypercholesterolemia, unspecified; I10 Essential (primary) hypertension; E03.9 Hypothyroidism, unspecified; Z88.8 Allergy status to other drugs, medicaments and biological substances
CPT/HCPCS: 36415; 80048; 81001; 85025; 99283